=== PATIENT | male | born 1975 | race Caucasian/White ===

== ENCOUNTER 2019-02-25 10:23 | Emergency (ER) | payer MEDICAID ==
[2019-02-25 10:42] VITALS: BP 136/90
--- NOTE | 2019-02-25 11:55 | UC ---
Respiratory Complaint HPI - HPI Summary HPI Summary: 43 year old male with history of asthma presents with 1 week history of chills, fatigue, nasal congestion, sore throat, SOB, wheezing, and a non-productive cough. States symptoms have progressively worsened over the past 3 days. Reports he just moved to the area about 1 month ago from [place], is living with his brother, and has not yet established with a primary care provider. He states he is on multiple medications for HTN, seizure disorder, schizophrenia, and bipolar disorder but is not sure what meds he is taking. He does have an albuterol inhaler for his asthma which he states has used once a day without relief. - History of Current Complaint Chief Complaint: UCRespiratory Stated Complaint: CHEST CONGESTION Time Seen by Provider: 02/25/19 11:51 Hx Obtained From: Patient Pain Intensity: 10 - Allergies/Home Medications Allergies/Adverse Reactions: Allergies Allergy/AdvReac Type Severity Reaction Status Date / Time Penicillins Allergy Vomiting Verified 02/25/19 10:42 PMH/Surg Hx/FS Hx/Imm Hx Cardiovascular History: Hypertension Respiratory History: Asthma Neurological History: Seizures Psychological History: Bipolar Disorder, Schizophrenia - Surgical History Surgical History: None - Family History Known Family History: Positive: Hypertension - Father Negative: Cardiac Disease, Diabetes - Social History Occupation: Unemployed Lives: Alone Alcohol Use: None Substance Use Type: None Smoking Status (MU): Heavy Every Day Tobacco Smoker Have You Smoked in the Last Year: Yes Review of Systems All Other Systems Reviewed And Are Negative: Yes Constitutional: Negative: Fever, Chills Skin: Negative: Rash Eyes: Negative: Drainage, Eye Redness ENT: Positive: Nasal Discharge, Sinus Congestion. Negative: Sore Throat, Ear Ache, Sinus Pain/Tenderness Respiratory: Positive: Shortness Of Breath, Cough, Other - Wheezing Cardiovascular: Negative: Palpitations, Chest Pain Gastrointestinal: Negative: Abdominal Pain, Vomiting, Diarrhea, Nausea Genitourinary: Positive: Negative Musculoskeletal: Positive: Negative Neurological: Positive: Negative Is Patient Immunocompromised?: No Physical Exam - Summary Physical Exam Summary: GENERAL APPEARANCE: Alert and cooperative, obese, unkempt, male who appears to be in no acute distress. EYES: Conjunctiva clear. No drainage. Vision is grossly intact. EARS: External auditory canals and tympanic membranes clear, hearing grossly intact. NOSE: Mild nasal congestion. No nasal discharge. THROAT: Mild pharyngeal erythema with post-nasal drip. No tonsilar inflammation , swelling, exudate, or lesions. Uvula midline. NECK: Neck supple, non-tender without lymphadenopathy. CARDIAC: Normal S1 and S2. No S3, S4 or murmurs. Rhythm is regular. There is no peripheral edema, cyanosis or pallor. Extremities are warm and well perfused. Capillary refill is less than 2 seconds. Peripheral pulses intact. LUNGS: Diffuse wheezing bilaterally with diminished breath sounds. Harsh, bronchospastic cough. ABDOMEN: Positive bowel sounds. Soft, nondistended, nontender. No guarding or rebound. No masses or hepatosplenomegally. MUSKULOSKELETAL: ROM intact to all extremities. No joint erythema or tenderness. Normal muscular development. Normal gait. SKIN: Skin normal color, texture and turgor with no lesions or eruptions. Triage Information Reviewed: Yes Vital Signs: Initial Vital Signs Temp 98 F 02/25/19 10:39 Pulse 92 02/25/19 10:39 Resp 18 02/25/19 10:39 BP 136/90 02/25/19 10:39 Pulse Ox 97 02/25/19 10:39 Vital Signs Reviewed: Yes Diagnostics - Radiology No standard instances Radiology Interpretation Completed By: Radiologist Summary of Radiographic Findings: Order Information: CHEST PA LAT 2 VWS. Accession Number: [id number]. CPT: 64673. INDICATION: 2 days of shortness of breath and productive cough. COMPARISON: None. TECHNIQUE: PA and lateral views of the chest were obtained. FINDINGS: The heart and mediastinum are normal in size and contour. In the lateral aspect of the right upper lung there is a small triangular-shaped density at the expected location of either the lateral inferior margin of the right upper lobe or the minor fissure of the right lung. This finding is not well reproduced on the lateral view radiograph. Elsewhere the lung are grossly clear. There is no evidence of large pleural effusion. Visualized bones are normal for the patient's age. There is no radiographic evidence of free air beneath the diaphragm. IMPRESSION: THERE IS EITHER A SMALL DEGREE OF ATELECTASIS AND/OR CONSOLIDATION INVOLVING THE LOWER LATERAL RIGHT UPPER LOBE, OR FLUID IN THE RIGHT MINOR FISSURE DESCRIBED ABOVE. THE LUNGS ARE OTHERWISE CLEAR. Respiratory Course/Dx - Course Course Of Treatment: 43 year old male with history of asthma presents with 1 week history of chills, fatigue, nasal congestion, sore throat, SOB, wheezing, and a non-productive cough. States symptoms have progressively worsened over the past 3 days. Reports he just moved to the area about 1 month ago from [place], is living with his brother, and has not yet established with a primary care provider. He states he is on multiple medications for HTN, seizure disorder, schizophrenia, and bipolar disorder but is not sure what meds he is taking. He does have an albuterol inhaler for his asthma which he states has used once a day without relief. Afebrile. Mildly hypertensive otherwise VSS. Exam is remarkable for mild nasal congestion, mild pharyngeal erythema with PND, diffuse wheezing with diminished breath sounds, and a harsh bronchospastic cough. He was given a DuoNeb treatment and prednisone 60 mg PO in the clinic with improvement in his symptoms. Post-neb he reported breathing was much easier. He continued to have an occasional scattered wheeze but air exchange much improved. CXR showed atelectasis vs consolidation in the lateral inferior margin of the right upper lobe or the minor fissure of the right lung. Will treat him for CAP with a course of doxycycline 100 mg BID x 10 days, continue the prednisone 50 mg daily for next 4 days, encourage him to use his albuterol 2 puffs every 4-6 hours as needed for SOB and wheezing, and provide him with Tessalon Perles 1 cap every 8 hours as needed for cough. I arranged for him to follow up at the [facility] in 2 days for re-evaluation of his symptoms since he does not currently have a PCP. Anticipatory guidance and warning symptoms were reviewed with the patient. Verbalizes understanding and agrees with POC. - Differential Dx/Diagnosis Differential Diagnosis/HQI/PQRI: Bronchitis, Influenza, Lower Resp Infection, Sinusitis Provider Diagnosis: Community acquired pneumonia Discharge - Sign-Out/Discharge Documenting (check all that apply): Patient Departure All imaging exams completed and their final reports reviewed: Yes - Discharge Plan Condition: Stable Disposition: HOME Prescriptions: Benzonatate CAP* [Tessalon 100 MG CAP*] 100 mg PO TID PRN #30 cap PRN Reason: Cough Doxycycline Hyclate 100 mg PO BID #20 tablet predniSONE TAB* [Deltasone TAB*] 50 mg PO DAILY #4 tab Patient Education Materials: Community Acquired Pneumonia (ED) Referrals: No Primary Care Phys,NOPCP [Primary Care Provider] - [facility] [Outside] - 2 Weeks (You have an appointment on February 27 at 11:00 am.) Additional Instructions: Your chest x-ray performed in the clinic today showed a probable right upper lobe pneumonia. We will start you on an antibiotic to treat the infection. Start doxycycline 100 mg twice a day for 10 days. Take prednisone 50 mg 1 tab daily for next 4 days. We gave you a dose in the clinic today. Be sure you are using your albuterol inhaler 2 puffs every 4-6 hours as needed for shortness of breath or wheezing. Get plenty of rest. Drink plenty of fluids. Run a cool mist humidifer in your room at night. Take over the counter acetaminophen (Tylenol) or ibuprofen (Advil, Motrin) according to directions as needed for pain or fever. Take Tessalon Perles 1 cap every 8 hours as needed for cough. Follow up at the [facility] or [facility] in 2 days. You have an appointment scheduled for February 27 at 11:00 am. Make sure you keep this appointment and be sure to bring all your medications to the appointment. Call if you need to reschedule. Seek immediate medical attention in the emergency room if you have fever greater than 100.5 F despite taking acetaminophen or ibuprofen, have chest pain , difficulty breathing, or have any worsening of symptoms. - Billing Disposition and Condition Condition: STABLE Disposition: Home
[2019-02-25] MEDS ORDERED: Albuterol/Ipratropium NEB.SOL* Albuterol 2.5 MG/Ipratropium 0.5 MG 3 ML INH ONE (12:14)
[2019-02-25] MEDS ORDERED: predniSONE TAB* 20 MG PO ONE (12:14)
== END 2019-02-25 13:41 | disposition home or self-care (01) ==
LOC: UCEAST 10:23
DX: J18.8 Other pneumonia, unspecified organism (principal); I10 Essential (primary) hypertension; J45.909 Unspecified asthma, uncomplicated; R09.81 Nasal congestion; F17.290 Nicotine dependence, other tobacco product, uncomplicated; Z88.0 Allergy status to penicillin
CPT/HCPCS: 71046; 99202; A9270-GY; G0463; J7512

== ENCOUNTER 2019-02-28 20:42 | Inpatient (IN) | payer MEDICAID ==
[2019-02-28] MEDS ORDERED: Albuterol/Ipratropium NEB.SOL* Albuterol 2.5 MG/Ipratropium 0.5 MG 3 ML INH ONE (22:54)
[2019-02-28] MEDS ORDERED: Acetaminophen TAB* 325 MG PO ONE (22:55)
[2019-02-28] MEDS ORDERED: ED Ceftriaxone 2 GM/50 ML 2 GM/2 ML PREMIX.SET IVPB ONE (22:55)
[2019-02-28] MEDS ORDERED: Ketorolac INJ* 30 MG/ML 1 ML VIAL IV PUSH ONE (22:56)
[2019-02-28] MEDS ORDERED: NS 0.9% 1000 ML** 2,000 ML IV ONE (22:56)
[2019-02-28] MEDS ORDERED: Albuterol 2.5 MG/3 ML NEB.SOL* (0.083%) INH SCH (23:00)
--- NOTE | 2019-02-28 23:11 | ED ---
Shortness of Breath - HPI Summary HPI Summary: The patient is a 43 year old male who is presenting to the [facility] with a chief complaint of SOB. He states that he was seen at the [facility] 3 days ago and was dx with pneumonia in the right lobe as well as an ear infection in the right ear. The pneumonia symptoms have worsened and the patient reports of head pains, coughing and chills. He denies fevers at this time. No flu test was done at the [facility]. The patient is a smoker. Medication hx reviewed and stated as Mental health medications, and HTN medications. The patient also receives doxycycline. PMHx also includes arthritis. Symptoms aggravated by nothing. Symptoms alleviated by nothing. The pain is rated to be a 8/10 in severity. According to the triage note, the patient is not taking his medication for his mental health illnesses and wants to receive a MHE. - History of Current Complaint Chief Complaint: EDShortnessOfBreath Time Seen by Provider: 02/28/19 22:42 Hx Obtained From: Patient Onset/Duration: Sudden Onset, Lasting Days - 3 days ago, Still Present Aggrevating Factors: Nothing Alleviating Factors: Nothing Associated Signs & Symptoms: Cough (Nonproductive), Chills - Allergy/Home Medications Allergies/Adverse Reactions: Allergies Allergy/AdvReac Type Severity Reaction Status Date / Time Penicillins Allergy Vomiting Verified 02/25/19 10:42 PMH/Surg Hx/FS Hx/Imm Hx Cardiovascular History: Reports: Hx Hypertension - on meds Respiratory History: Reports: Hx Asthma - Cancer History Cancer Type, Location and Year: seizures arthritis knees and back Infectious Disease History: No Infectious Disease History: Denies: Traveled Outside the [place] in Last 30 Days - Family History Known Family History: Positive: Hypertension - Father Negative: Cardiac Disease, Diabetes - Social History Alcohol Use: None Substance Use Type: Reports: None Smoking Status (MU): Heavy Every Day Tobacco Smoker Have You Smoked in the Last Year: Yes Review of Systems Positive: Chills. Negative: Fever Eyes: Negative ENT: Negative Cardiovascular: Negative Positive: Shortness Of Breath, Cough Gastrointestinal: Negative Genitourinary: Negative Musculoskeletal: Negative Skin: Negative Positive: Headache - Head pains Psychological: Normal All Other Systems Reviewed And Are Negative: Yes Physical Exam - Summary Physical Exam Summary: VITAL SIGNS: Reviewed. GENERAL: Patient is a Morbidly obese (MALE) who is lying comfortable in the stretcher. Patient is not in any acute respiratory distress. HEAD AND FACE: No signs of trauma. No ecchymosis, hematomas or skull depressions. No sinus tenderness. EYES: PERRLA, EOMI x 2, No injected conjunctiva, no nystagmus. EARS: Right TM hyperemia MOUTH: Oropharynx within normal limits. NECK: Supple, trachea is midline, no adenopathy, no JVD, no carotid bruit, no c- spine tenderness, neck with full ROM. CHEST: Symmetric, no tenderness at palpation LUNGS: Decreased breath sounds bilaterally with Mild excretory wheezes CVS:Tachycardia, S1 and S2 present, no murmurs or gallops appreciated. ABDOMEN: Soft, non-tender. No signs of distention. No rebound no guarding, and no masses palpated. Bowel sounds are normal. EXTREMITIES: FROM in all major joints, no edema, no cyanosis or clubbing. NEURO: Alert and oriented x 3. No acute neurological deficits. Speech is normal and follows commands. SKIN: Dry and warm Triage Information Reviewed: Yes Vital Signs On Initial Exam: Initial Vitals Temp Pulse Resp BP Pulse Ox 99.2 F 132 22 148/91 95 02/28/19 20:43 02/28/19 20:43 02/28/19 20:43 02/28/19 20:43 02/28/19 20:43 Vital Signs Reviewed: Yes Diagnostics - Vital Signs Vital Signs Temp Pulse Resp BP Pulse Ox 02/28/19 22:36 106 22 96 02/28/19 21:25 98.5 F 98 28 132/81 95 02/28/19 20:43 99.2 F 132 22 148/91 95 - Laboratory Result Diagrams: 03/02/19 09:12 03/02/19 09:12 Lab Statement: Any lab studies that have been ordered have been reviewed, and results considered in the medical decision making process. - Radiology Chest X-Ray Radiology Interpretation Completed By: ED Physician Summary of Radiographic Findings: Chest X-ray reveals, No acute processes as per ED Physician. - CT Chest CTA CT Interpretation Completed By: Radiologist Summary of CT Findings: Chest CTA as per radiologist report reveals No pulmonary emboli. No additional findings to correlate with patient's. symptomatology. The ED Physician has reviewed this radiology report. - EKG 2222 EKG Rhythm: Sinus Tachycardia - 101 bpm Summary of EKG Findings: EKG at 2222 reveals 101 bpm sinus tachycardia as well as Q waves in the inferior leads. Re-Evaluation - Re-Evaluation 1 Re-Evaluation Time: 07:50 Comment: Informed patient of plan to repeat troponin. Patient has no complaints at this time. Course/Dx - Course Course Of Treatment: The patient is a 43 year old male who is presenting to the [facility] with a chief complaint of SOB. The patient was previous dx with pneumonia , and right ear infection during his [facility] visit and states the symptoms have worsened today. Patient temperature was monitered. Patient received a Chest X- ray, Chest CTA and EKG in the [facility]. We reviewed the radiology findings and discussed the results to the patient. We also discussed the lab work and the blood work results to the patient. The patient will be discharged home with medication and the dx will be Left Otitis media. Patients trop is mildly elevated but the patient doesnt have any chest pain. Patient CT scan did not show any pneumonia so we recommended that the patient discontinue the prednisone and other medication prescribed for pneumonia. The patient will be given ear drops as well as Omnicef. The patient also wishes to receive a mental health evaluation and is medically cleared to receive one at 0344. The patient is currently pending mental health evaluation and disposition. The dx will be depression and right otitis media. Upon receiving a mental health evaluation, the patient is pending a bilingual patient support caseworker/social work consult because the patient is currently homeless. - Diagnoses Provider Diagnoses: SOB (shortness of breath), Right otitis media, Homelessness Discharge - Sign-Out/Discharge Documenting (check all that apply): Sign-Out Patient Signing out patient TO: Codie Diaz Patient Received Moderate/Deep Sedation with Procedure: No - Discharge Plan Condition: Stable Disposition: ADMITTED TO [facility] - Billing Disposition and Condition Condition: STABLE Disposition: Admitted to [facility] - Attestation Statements Document Initiated by Ekta: Yes Documenting Scribe: Jcarlos Da Silva Provider For Whom Ekta is Documenting (Include Credential): Dr. Sonya Brooksibpamela Attestation: Jcarlos Scott scribed for Dr. Gianna Barajas on 03/02/19 at 2020. Scribe Documentation Reviewed: Yes Provider Attestation: The documentation as recorded by the scribe, Jcarlos Da Silva accurately reflects the service I personally performed and the decisions made by me, Dr. Gianna Barajas Status of Ekta Document: Viewed
[2019-02-28] MEDS ORDERED: cefTRIAXone(*) 2 GM in NS 0.9% 100 ML* 100 ML IVPB ONE (23:30)
[2019-02-28 23:48] LABS: ABS Basophils 0 10^3/ul (0-0.2); ABS Eosinophils 0.5 10^3/ul (0-0.6); ABS Lymphocytes 2.9 10^3/ul (1.0-4.8); ABS Neutrophils 9.7 10^3/ul (1.5-7.7); ABS Nucleated RBC 0 10^3/ul; Eosinophil % 3.2 %; Hematocrit 45 % (36-46); Hemoglobin 15.5 g/dL (14.0-18.0); Lymphocyte % 20.7 %; Mean Corpuscular HGB Conc 34 g/dL (31-36); Mean Corpuscular Hemoglobin 30 pg (27-31); Mean Corpuscular Volume 88 fL (80-94); Mean Platelet Volume 7.6 fL (7.4-10.4); Nucleated Red Blood Cells % 0.1; Platelet Count 319 10^3/uL (150-450); Red Blood Count 5.15 10^6 /uL (4.18-5.48); Red Cell Distribution Width 13 % (10.5-15); White Blood Count 14.1 10^3/uL (3.5-10.8)
[2019-02-28 23:57] LABS: Activated Partial Thrombo Time 31.3 seconds (26.0-36.3); INR 1.04 (0.77-1.02)
[2019-03-01 00:06] LABS: ALT 27 U/L (7-52); AST 45 U/L (13-39); Albumin 3.8 g/dL (3.2-5.2); Albumin/Globulin Ratio 1.2 (1-3); Alkaline Phosphatase 82 U/L (34-104); Anion Gap 7 mmol/L (2-11); Blood Urea Nitrogen 10 mg/dL (6-24); C Reactive Protein 30.05 mg/L (<8.01); CO2 Carbon Dioxide 26 mmol/L (22-32); Calcium 8.8 mg/dL (8.6-10.3); Chloride 105 mmol/L (101-111); EGFR African American 110.6 (>60); EGFR Non-African American 91.4 (>60); Globulin 3.1 g/dL (2-4); Glucose 148 mg/dL (70-100); Potassium 3.4 mmol/L (3.5-5.0); Sodium 138 mmol/L (135-145); Total Protein 6.9 g/dL (6.4-8.9)
[2019-03-01] MEDS ORDERED: Iohexol 350* (CONTRAST) 500 ML MDV IV ONE (00:12)
[2019-03-01 00:20] LABS: Troponin I 0.05 ng/mL (<0.04)
[2019-03-01] MEDS ORDERED: Potassium Chlor TAB* 20 MEQ TAB.ER PO ONE (01:16)
[2019-03-01 03:35] LABS: Influenza A Molecular NEGATIVE (Negative); Influenza B Molecular NEGATIVE (Negative)
[2019-03-01 04:01] LABS: Acetaminophen < 15 mcg/mL; Salicylate < 2.50 mg/dL (<30)
[2019-03-01 04:03] LABS: Urine Appearance Clear; Urine Bilirubin Negative (Negative); Urine Blood Negative (Negative); Urine Color Yellow; Urine Glucose Negative (Negative); Urine Ketones Negative (Negative); Urine Nitrite Negative (Negative); Urine Protein Negative (Negative); Urine Specific Gravity > 1.060 (1.010-1.030); Urine Urobilinogen Negative (Negative)
--- NOTE | 2019-03-01 07:09 | ED ---
Progress - Progress Note Progress Note: This patient is signed out from Dr. Barajas at 0700 awaiting social work consult and disposition. - Results/Orders Results/Orders: Second EKG taken at 0809 revealing ectopic atrial rhythm, left axis deviation, and ischemic changes in the inferior and anterior leads. EKG is unchanged from previous except for ectopic atrial rhythm. - Consult/PCP Time Called: 03:45 Re-Evaluation - Re-Evaluation 1 Re-Evaluation Time: 07:50 Comment: Informed patient of plan to repeat troponin. Patient has no complaints at this time. Course/Dx - Course Course Of Treatment: This patient is 43 y/o homeless man that was signed out from Dr. Barajas. This patient presented with SOB. Patient had a dx of PNA and right otitis media three weeks ago, with worsening symptoms since. Patient's nurse states patient was very diaphoretic and SOB upon arrival to the ED. Due to patient's elevated troponin of 0.05 with no previous troponin results to compare to, troponin and EKG will be repeated. EKG is relatively unchanged except for a new ectopic rhythm. Second troponin is 0.03. Due to patient's MR and bipolar disorder and his inability to remain complaint with his medications this case was discussed with the social insurance specialist, Joceline, who discussed patient with caser in, [place]. Joceline states the patient should be admitted as an [facility] admission.Case discussed with hospitalist. I discussed results and plan with patient. The patient agrees with this plan. - Diagnoses Provider Diagnoses: SOB (shortness of breath), Right otitis media, Homelessness Discharge - Sign-Out/Discharge Documenting (check all that apply): Receiving Sign-Out Receiving patient FROM: Gianna Barajas - Discharge Plan Condition: Stable Disposition: ADMITTED TO [facility] Referrals: No Primary Care Phys,NOPCP [Primary Care Provider] - - Billing Disposition and Condition Condition: STABLE Disposition: Admitted to [facility] - Attestation Statements Document Initiated by Toddibe: Yes Documenting Scribe: Jane Webb Provider For Whom Ekta is Documenting (Include Credential): Codie Diaz MD Scribe Attestation: Jane Scott, scribed for Codie Diaz MD on 03/01/19 at 0934. Scribe Documentation Reviewed: Yes Provider Attestation: The documentation as recorded by the Jane montano Roetzer accurately reflects the service I personally performed and the decisions made by me, Codie Diaz MD Status of Scribe Document: Viewed
[2019-03-01] MEDS ORDERED: Albuterol/Ipratropium NEB.SOL* Albuterol 2.5 MG/Ipratropium 0.5 MG 3 ML INH PRN (10:16)
[2019-03-01] MEDS ORDERED: Nicotine Inhaler* 10 MG AMP INH ONE (10:19)
[2019-03-01] MEDS ORDERED: hydrOXYzine HCL TAB* 50 MG PO PRN (10:20)
[2019-03-01] MEDS ORDERED: Mouth Piece, Nicotine* 1 EACH CARTRIDGE ONE ×2 (10:47→13:29)
--- NOTE | 2019-03-01 12:51 | HP ---
ADMITTING HISTORY AND PHYSICAL: DATE OF ADMISSION: 03/01/19 CHIEF COMPLAINT: Shortness of breath and cough. HISTORY OF PRESENT ILLNESS: The patient is a 43-year-old gentleman with history of schizoaffective disorder as well as manic and bipolar and seizure disorder who mentioned that he is new to [place] since 01/18/19, previously a resident of [place] and lives on social security in a cousin's house prior to this who mentioned that he had spoken to his brother on the phone thinking that it would be okay to live with him, however, when he got to [place], he found out that he was unable to live with his brother and his family and hence he has become homeless since and has been sleeping from one friend to the others' place. He mentioned that he was recently diagnosed with pneumonia and right otitis media and was placed on antibiotics and had since improved, this was 3 weeks ago. However, he supposedly became diaphoretic and short of breath and was sent to the ED and was found to initially have a mildly elevated troponin of 0.05, however, a repeat troponin was 0.03 and has since been normalized. On EKG, he might have some ectopic atrial rhythm, but otherwise sinus with no ST-segment changes that is consistent with each anatomical lead. In the ED, he had been given Rocephin, nebulization, ketorolac, potassium supplements and nicotine inhaler. PAST MEDICAL HISTORY: 1. Seizure disorder. 2. Hypertension. 3. Asthma. 4. Bipolar disorder. 5. Manic depression. 6. Osteoarthritis of the lower back and the left knee. 7. Schizoaffective disorder. 8. Purported split personality disorder. PAST SURGICAL HISTORY: None. MEDICATIONS: His home medications are: 1. Lamotrigine. 2. Escitalopram. 3. Phenytoin. 4. Hydroxyzine. 5. Lisinopril. 6. Prednisone. 7. Doxycycline. 8. Benzonatate. ALLERGIES: PENICILLIN where he mentions he would throw up blood when he would get them. FAMILY HISTORY: Mental illness, unknown: Sister. Father: Hypertension. SOCIAL HISTORY: The patient originally from [place] and went to [place], [place], to be near his brother. Unfortunately, he cannot live with his brother and his family and has since been homeless. He denies any history of alcohol nor IV drug use and he smokes about 1 pack per day since the age of 19. REVIEW OF SYSTEMS: On review of systems, the patient complained of shortness of breath a few hours prior to his presentation, but no longer present, mentions that he coughs a lot more than usual and they are usually dry. Denies any recent headaches, dizziness, fevers, chills, nausea, or vomiting. He did complain initially of chest pain, but no longer present. Denies any abdominal pain, diarrhea, constipation, pain and/or increased frequency in urination, myalgias, arthralgias, throat pain, or new skin lesions. The rest of the 14- point review of systems are otherwise unremarkable. PHYSICAL EXAMINATION GENERAL APPEARANCE: The patient is awake, not in acute distress. VITAL SIGNS: Reveals the most recent vitals sings of records with blood pressure of 132/78, 67 beats per minute heart rate, 17 per minute respiratory rate, saturating at 96% on room air. HEENT: Normocephalic, atraumatic. PERRLA. Extraocular muscles intact. Negative for icterus. Moist oral mucosa. Negative throat erythema. NECK: Soft, supple with no cervical lymphadenopathy. No JVD. CHEST: Clear to auscultation bilaterally. Good air entry. No wheezes, rales, or rhonchi. HEART: S1, S2 within normal limits. Regular rate and rhythm. No murmurs, rubs , or gallops. ABDOMEN: Soft, nondistended, nontender. Normoactive bowel sounds x4 quadrants. EXTREMITIES: No cyanosis, clubbing, or edema. PSYCHIATRIC: No active psychosis, depression, suicidal or homicidal ideation. SKIN: Warm to touch. DIAGNOSTIC STUDIES/LAB DATA: Most recent and pertinent laboratories drawn on 02/28/19 show CBC with a WBC of 14.1, H and H of 15.5 and 45, platelets of 319. INR of 1.04, D-dimer of less than 200, aPTT of 31.3. Sodium and potassium of 138 and 3.4, BUN and creatinine of 10 and 0.91. LFTs mildly elevated with an AST of 45, ALT of 87, alkaline phosphatase of 82, troponins of 0.05 and 0.03. BNP of 26. Urinalysis shows specific gravity greater than 1.060. Chest x-ray shows no acute disease. CT angio of the chest shows no pulmonary emboli, no findings to correlate with the patient's symptomatology. ASSESSMENT AND PLAN: The patient is a 43-year-old gentleman with extensive psychiatric history along with seizure disorder, being admitted for chest pain and shortness of breath, possibly due to bronchitis versus anxiety. 1. Chest pain and shortness of breath. He did have some mildly elevated troponins on presentation and we will continue to trend the patient's troponin. His RENETTA score is 1 at best and will continue watchful waiting for now and to consider for a possible stress test in a.m. If this recurs, however, given low pretest probability, a likelihood of false-positive is also a concern. Therefore, we will obtain 2-D echo to start with and if there are any concerns, we will defer and will continue to observe if the patient will need a stress test on Sunday. 2. Cough, possibly due to reactive airways disease/bronchitis. It is concerning that he was diaphoretic or at least observed to have been diaphoretic by a nurse on his initial presentation, which could suggest a psychiatric cause such as anxiety given he is on hydroxyzine q.6 p.r.n. versus a real pulmonary cause. We will obtain ABG at this time. We will continue the patient on prednisone given his recent bout and diagnosis of pneumonia. 3. Seizure disorder. We will continue antiseizure meds with phenytoin and lamotrigine. 4. Anxiety. We will continue p.r.n. hydroxyzine. 5. Hypertension. Continue lisinopril, otherwise well controlled. 6. Tobacco abuse, advised lifestyle modifications. We will place the patient on nicotine patch and p.r.n. nicotine inhalers. 7. DVT prophylaxis. The patient is at low risk. I will place the patient on DELANEY stockings and encourage ambulation with assist. 8. Disposition. The patient will be admitted for chest pain and subsequent jail care. [id number]/[facility] #: [id number] ABBY
[2019-03-01] MEDS: Phenytoin CAP(*) 100 MG CAP.ER PO SCH ×2 (13:34→21:02)
[2019-03-01] MEDS: Benzonatate CAP* 100 MG PO PRN (13:34)
[2019-03-01] MEDS: NS 0.9% 1000 ML** 400 ML IV SCH ×2 (15:07→19:46)
[2019-03-01] MEDS: Ofloxacin 0.3% (Ear Drop)* 5 ml BTL RIGHT EAR SCH ×2 (15:07→21:03)
[2019-03-01] MEDS: Nicotine Inhaler* 10 MG AMP INH PRN (18:01)
[2019-03-01] MEDS: lamoTRIgine TAB(*) 100 MG PO SCH (21:01)
[2019-03-02] MEDS: Nicotine Patch Removal NOTE FOLLOW UP SCH (04:11)
[2019-03-02] MEDS ORDERED: predniSONE TAB* 50 MG PO SCH (09:00)
[2019-03-02] MEDS: Phenytoin CAP(*) 100 MG CAP.ER PO SCH ×3 (09:18→20:59)
[2019-03-02] MEDS: lamoTRIgine TAB(*) 100 MG PO SCH ×2 (09:18→21:00)
[2019-03-02] MEDS: Citalopram TAB* 40 MG PO SCH (09:18)
[2019-03-02] MEDS: Lisinopril TAB* 10 MG PO SCH (09:18)
[2019-03-02] MEDS: Ofloxacin 0.3% (Ear Drop)* 5 ml BTL RIGHT EAR SCH ×2 (09:19→21:08)
[2019-03-02] MEDS: Nicotine PATCH 21 MG/24 HR* PATCH TRANSDERM SCH (09:19)
[2019-03-02 09:34] LABS: Hematocrit 45 % (36-46); Hemoglobin 14.9 g/dL (14.0-18.0); Mean Corpuscular HGB Conc 34 g/dL (31-36); Mean Corpuscular Hemoglobin 30 pg (27-31); Mean Corpuscular Volume 90 fL (80-94); Platelet Count 283 10^3/uL (150-450); Red Blood Count 4.99 10^6 /uL (4.18-5.48); Red Cell Distribution Width 13 % (10.5-15); White Blood Count 10.9 10^3/uL (3.5-10.8)
[2019-03-02 09:44] LABS: Albumin 3.8 g/dL (3.2-5.2); Albumin/Globulin Ratio 1.2 (1-3); BUN/Creatinine Ratio 10.2 (8-20); EGFR African American 114.9 (>60); Globulin 3.1 g/dL (2-4); Magnesium 1.8 mg/dL (1.9-2.7); Phosphorus 2.9 mg/dL (2.5-5.0); Total Bilirubin 0.4 mg/dL (0.2-1.0); Total Protein 6.9 g/dL (6.4-8.9)
[2019-03-02] MEDS ORDERED: Magnesium Sulfate 2 GM IV* 2 GM/50 ML BAG IVPB ONE (09:50)
[2019-03-02] MEDS ORDERED: predniSONE TAB* 20 MG PO STA (10:41)
[2019-03-02] MEDS ORDERED: Benzonatate CAP* 100 MG PO PRN ×2 (10:42→11:01)
[2019-03-02] MEDS ORDERED: Albuterol/Ipratropium NEB.SOL* Albuterol 2.5 MG/Ipratropium 0.5 MG 3 ML INH SCH (11:00)
[2019-03-02] MEDS ORDERED: predniSONE TAB* 10 MG PO ONE (11:15)
[2019-03-02] MEDS: Benzonatate CAP* 100 MG PO PRN (11:27)
--- NOTE | 2019-03-02 12:24 | PN ---
Subjective Date of Service: 03/02/19 Interval History: Pt seen and examined. Meds and labs reviewed. CC: N/A ROS: Denied PEREZ/dizziness, F/C, N/V, CP, SOB, increased cough, sputum production , abd pain, diarrhea, constipation, dysuria, myalgias, arthralgias, throat pain , and new skin lesions. The rest of the 14 point ROS are unremarkable. PHYSICAL EXAM: GEN APPEARANCE: Asleep, arousable, not in acute distress HEENT: NC/AT, PERRLA, moist oral mucosa, (-) throat erythema NECK: Soft, supple, (-) cervical LAD, (-)JVD HEART: S1S2 WNL, RRR, No MRG CHEST: (+)mild Wheezing, BL, GAE, No R/R ABD: Soft, ND/NT, NABS 4x Q EXT: No C/C/E SKIN: Warm to touch PSYCH: No active psychosis, hallucinations, depression, SI/HI Objective Active Medications: Albuterol (Ventolin 2.5 Mg/3 Ml Neb.Lyn*) 2.5 mg INH .Q20M [facility] Albuterol/Ipratropium (Duoneb (Albuterol 2.5 Mg/Ipratropium 0.5 Mg)) 1 neb INH [id number] AWAKE [facility] Last Admin: 03/02/19 12:19 Dose: 1 neb Benzonatate (Tessalon Cap*) 100 mg PO Q6H PRN PRN Reason: COUGH Citalopram Hydrobromide (Celexa Tab*) 40 mg PO DAILY [facility] Last Admin: 03/02/19 09:18 Dose: 40 mg Guaifenesin/Dextromethorphan (Robitussin Dm*) 10 ml PO TID [facility] Stop: 03/04/19 13:59 Hydroxyzine HCl (Atarax Tab*) 50 mg PO Q6H PRN PRN Reason: ANXIETY Last Admin: 03/02/19 06:38 Dose: 50 mg Lamotrigine (Lamictal Tab(*)) 150 mg PO BID [facility] Last Admin: 03/02/19 09:18 Dose: 150 mg Lisinopril (Prinivil Tab*) 20 mg PO DAILY [facility] Last Admin: 03/02/19 09:18 Dose: 20 mg Nicotine (Nicotine Inhaler*) 10 mg INH Q2H PRN PRN Reason: CRAVING Last Admin: 03/01/19 18:01 Dose: 10 mg Nicotine (Nicotine Patch 21 Mg/24 Hr*) 1 patch TRANSDERM DAILY@0800 [facility] Last Admin: 03/02/19 09:19 Dose: Not Given Ofloxacin (Floxin 0.3% Otic.Lyn*) 5 drop RIGHT EAR BID [facility] Last Admin: 03/02/19 09:19 Dose: 5 drp Pharmacy Profile Note (Nicotine Patch Removal Note*) 1 note FOLLOW UP 0600 [facility] Last Admin: 03/02/19 04:11 Dose: Not Given Phenytoin Sodium (Dilantin Cap(*)) 300 mg PO TID [facility] Last Admin: 03/02/19 09:18 Dose: 300 mg Prednisone (Deltasone Tab*) 60 mg PO BID [facility] Vital Signs - 8 hr 03/02/19 03/02/19 03/02/19 07:20 08:00 10:58 Temperature 98.4 F 98.4 F Pulse Rate 66 65 Respiratory 18 20 20 Rate Blood Pressure 135/84 148/57 (mmHg) O2 Sat by Pulse 96 95 95 Oximetry 03/02/19 11:33 Temperature 98.4 F Pulse Rate 65 Respiratory 20 Rate Blood Pressure 148/57 (mmHg) O2 Sat by Pulse 95 Oximetry Oxygen Devices in Use Now: None Result Diagrams: 03/02/19 09:12 03/02/19 09:12 Microbiology and Other Data: Microbiology 02/28/19 23:40 Aerobic Blood Culture - Preliminary Blood Venous No Growth Day 1 Anaerobic Blood Culture - Preliminary No Growth Day 1 02/28/19 23:40 Aerobic Blood Culture - Preliminary Blood Venous No Growth Day 1 Anaerobic Blood Culture - Preliminary No Growth Day 1 Assess/Plan/Problems-Billing Assessment: - Patient Problems (1) Chest pain Current Visit: Yes Status: Acute Code(s): R07.9 - CHEST PAIN, UNSPECIFIED SNOMED Code(s): 74215636 Comment: -Resolved -Risk scores: RENETTA = 1; Heart =1; low risk; will not order stress test unless frequent recurrence or 2D echo suggestive of wall motion abn -Awaiting 2D echo -Likely musculoskeletal in nature -ACS R/O (2) Cough Current Visit: Yes Status: Acute Code(s): R05 - COUGH SNOMED Code(s): 26726691 Comment: -Likely due to mild asthma exacerbation -Changed nebulization meds as ordered -Increase PO Prednisone as ordered -Placed pt on Robitussin-DM and Tessalon perles, PRN -Continue watchful waiting (3) Seizure disorder Current Visit: Yes Status: Acute Code(s): G40.909 - EPILEPSY, UNSP, NOT INTRACTABLE, WITHOUT STATUS EPILEPTICUS SNOMED Code(s): 684650683 Comment: -Continue Phenytoin and Lamotrigine (4) Anxiety Current Visit: Yes Status: Acute Code(s): F41.9 - ANXIETY DISORDER, UNSPECIFIED SNOMED Code(s): 62915724 Comment: -Continue PRN Hydroxyzine (5) HTN (hypertension) Current Visit: Yes Status: Acute Code(s): I10 - ESSENTIAL (PRIMARY) HYPERTENSION SNOMED Code(s): 80020291 (6) Tobacco abuse Current Visit: Yes Status: Acute Code(s): Z72.0 - TOBACCO USE SNOMED Code( s): 218160392 (7) DVT prophylaxis Current Visit: Yes Status: Acute Code(s): FHS9851 - SNOMED Code(s): 758560929 Comment: -Will add Lovenox to pts regimen Status and Disposition: -As above
[2019-03-02] MEDS: Albuterol/Ipratropium NEB.SOL* Albuterol 2.5 MG/Ipratropium 0.5 MG 3 ML INH SCH ×3 (13:23→19:56)
[2019-03-02] MEDS: GuaiFENesin DM* 5 ML UDC PO SCH ×2 (15:55→21:14)
[2019-03-02] MEDS: Nicotine Inhaler* 10 MG AMP INH PRN (17:23)
[2019-03-02] MEDS ORDERED: Dextrose 50% Syringe 50 ML* 25 GM/50 ML SYRINGE IV PUSH PRN (20:00)
[2019-03-02] MEDS ORDERED: Insulin LISPRO* 1 UNITS UNIT SUBCUT ONE (20:00)
[2019-03-02] MEDS ORDERED: Acetaminophen TAB* 325 MG PO PRN (20:21)
[2019-03-02] MEDS: predniSONE TAB* 20 MG PO SCH (20:59)
[2019-03-02] MEDS: LORazepam INJ* 2 MG/ML 1 ML VIAL IV PUSH PRN (21:07)
[2019-03-02 21:30] LABS: ABS Basophils 0 10^3/ul (0-0.2); ABS Eosinophils 0 10^3/ul (0-0.6); ABS Lymphocytes 1.1 10^3/ul (1.0-4.8); ABS Monocytes 0.5 10^3/ul (0-0.8); ABS Nucleated RBC 0 10^3/ul; Eosinophil % 0.1 %; Hematocrit 46 % (36-46); Hemoglobin 15.6 g/dL (14.0-18.0); Lymphocyte % 6.8 %; Mean Corpuscular HGB Conc 34 g/dL (31-36); Mean Corpuscular Hemoglobin 30 pg (27-31); Mean Corpuscular Volume 89 fL (80-94); Mean Platelet Volume 7.9 fL (7.4-10.4); Nucleated Red Blood Cells % 0; Platelet Count 316 10^3/uL (150-450); Red Blood Count 5.18 10^6 /uL (4.18-5.48); Red Cell Distribution Width 13 % (10.5-15); White Blood Count 15.6 10^3/uL (3.5-10.8)
[2019-03-02 21:47] LABS: Albumin 4.1 g/dL (3.2-5.2); Albumin/Globulin Ratio 1.2 (1-3); BUN/Creatinine Ratio 12.6 (8-20); Calcium 9.6 mg/dL (8.6-10.3); EGFR African American 105.2 (>60); EGFR Non-African American 86.9 (>60); Globulin 3.3 g/dL (2-4); Potassium 4.6 mmol/L (3.5-5.0); Total Bilirubin 0.3 mg/dL (0.2-1.0); Total Protein 7.4 g/dL (6.4-8.9)
[2019-03-02 21:48] LABS: Phenytoin 4.8 mcg/mL (10-20)
[2019-03-02 22:06] LABS: Prolactin 1.7 ng/mL (1.0-20.0)
--- NOTE | 2019-03-02 23:29 | PN ---
Hospitalist Progress Note Date of Service: 03/02/19 CAT CODE RESPONSE CAT was called to bedside of patient 4 PM for diaphoresis and dizziness while patient ambulated to the bathroom On arrival VSS BP 140s systolic, HR 70s, afebrile, and satting 95% on RA, BG > 300. Pt was in the bathroom sitting on the toilet, diaphoretic and drowsy, he was able to follow commands and was able to be transferred to bed with gait belt and assist of 2. Shortly after CAT pt had a 90 second long seizure described as pt complaining on prodrome with nurse at bedside then eyes rolling back in head then a generalized fine tremor to upper and lower ext with no focal motor or tonic clonic, no bladder/bowel, pt returned to baseline function with no post ictal state, hyperglycemia was adressed, and then pt again had seizure pt was ordered for ativan but broke out of seizure just as it was being given. In bed, pt participated in exam PE: Gen: AOx3, diaphretic but well appearing well nourished Neuro: follows all commands, PEERLA, CN2-12 intact, motor and sensory intact bilaterally CV: RRR no MRG Lungs: Distant blt but no crackles or wheeze, equal air movement GI: Soft NT ND NABS Ext: No edema, 2+ pulses no rashes Labs-Hypergly, leukocytosis, prolactin low Assessment: Overall, pt with known seizure d/o found to be diaphoretic, hyperglycemic likely a vasovagal that progressed into presumed seizure activity triggered by hyperglycemia. He has recovered without intervention aside from ativan. #Hypergly-5U lispro, then sliding scale >30 BMI, add A1C #Seizure d/o: Did order levels, PRN ativan 1mg for seizure > 30 seconds Will reassess patient 4 hours post CAT
[2019-03-02] MEDS: Insulin LISPRO* 1 UNITS UNIT SUBCUT SCH (23:57)
[2019-03-03] MEDS: Albuterol/Ipratropium NEB.SOL* Albuterol 2.5 MG/Ipratropium 0.5 MG 3 ML INH SCH ×2 (01:37→07:07)
[2019-03-03] MEDS: Nicotine Patch Removal NOTE FOLLOW UP SCH (06:02)
[2019-03-03] MEDS: Nicotine Inhaler* 10 MG AMP INH PRN ×4 (06:22→20:16)
[2019-03-03] MEDS: GuaiFENesin DM* 5 ML UDC PO SCH ×3 (08:29→20:17)
[2019-03-03] MEDS: Insulin LISPRO* 1 UNITS UNIT SUBCUT SCH ×4 (08:32→20:52)
[2019-03-03] MEDS: Phenytoin CAP(*) 100 MG CAP.ER PO SCH ×3 (08:35→20:20)
[2019-03-03] MEDS: Lisinopril TAB* 10 MG PO SCH (08:36)
[2019-03-03] MEDS: predniSONE TAB* 20 MG PO SCH ×2 (08:37→20:21)
[2019-03-03] MEDS: lamoTRIgine TAB(*) 100 MG PO SCH ×2 (08:37→20:20)
[2019-03-03] MEDS: Citalopram TAB* 40 MG PO SCH (08:39)
[2019-03-03] MEDS: Ofloxacin 0.3% (Ear Drop)* 5 ml BTL RIGHT EAR SCH ×2 (08:40→20:20)
[2019-03-03] MEDS: Nicotine PATCH 21 MG/24 HR* PATCH TRANSDERM SCH (09:22)
[2019-03-03] MEDS ORDERED: Phenytoin IV(*) 50 MG/ML 5 ML VIAL (250 MG) IVPB ONE (10:57)
[2019-03-03] MEDS ORDERED: Albuterol/Ipratropium NEB.SOL* Albuterol 2.5 MG/Ipratropium 0.5 MG 3 ML INH PRN (12:01)
[2019-03-03] MEDS ORDERED: Dextrose 50% Syringe 50 ML* 25 GM/50 ML SYRINGE IV PUSH PRN (13:43)
[2019-03-03] MEDS ORDERED: Insulin LISPRO* 1 UNITS UNIT SUBCUT STA (13:43)
[2019-03-03] MEDS: NS 0.9% IVPB ONE ×2 (14:06→14:15)
[2019-03-03] MEDS: FOSPHENYTOIN IVPB ONE ×2 (14:06→14:15)
[2019-03-03] MEDS ORDERED: Perflutren Lipid Microsphere* 3 ML VIAL ONE (15:05)
--- NOTE | 2019-03-03 17:11 | ECHO ---
Patient: NATASHA MELÉNDEZ [facility] Rec#: [id number] : 1975 Date: 03/03/2019 Age: 43y Height: 188 cm / 74.0 in Weight: 149 kg / 328.4 lbs Sex: M BSA: 2.68 Room#: [facility] Admit Date#: 02/26/2019 Type: Inpatient Referring: COURTNEY YOON R Reading: Angel Trevizo DO Order Fulfillment Specialist: Sanjana Christie RDCS Transthoracic Echocardiogram Indication: CP BP: 135/68 HR: 75 Rhythm: NSR Findings History: Morbid obesity,HTN,smoker,seizures. Technical Comments: The study is technically difficult. Definity used to enhance images. The study is technically limited due to patient body habitus. Left Ventricle: Mild concentric left ventricular hypertrophy is observed. Global left ventricular wall motion and contractility are within normal limits. There is normal left ventricular systolic function. The estimated ejection fraction is 60-65%. Abnormal left ventricular diastolic function is observed. Left Atrium: The left atrium is normal in size. Right Ventricle: The right ventricular chamber size and systolic function are within normal limits.in parasternal imaging, not seen well in apical views Right Atrium: The right atrium is not well visualized. Aortic Valve: The aortic valve is trileaflet. There is no evidence of aortic valve thickening. There is no evidence of aortic regurgitation. There is no evidence of aortic stenosis. Mitral Valve: The mitral valve leaflets appear normal. There is a trace of mitral regurgitation. There is no evidence of mitral stenosis. Tricuspid Valve: The tricuspid valve structure is not well visualized. Pulmonic Valve: The pulmonic valve appears normal. There is no evidence of pulmonic regurgitation. There is no pulmonic stenosis. Pericardium: There is no significant pericardial effusion. Aorta: There is no dilatation of the ascending aorta. The aortic arch is not well visualized. There is no dilation of the aortic root. Pulmonary Artery: The main pulmonary artery is not well visualized. Venous: The venous system is not well visualized. Contrast: Definity was used to optimize study. A total of 4 ml used. Intravenous contrast was used to enhance endocardial border definition. Conclusions Mild concentric left ventricular hypertrophy is observed. Global left ventricular wall motion and contractility are within normal limits. There is normal left ventricular systolic function. The estimated ejection fraction is 60-65%. The left atrium is normal in size. The right ventricular chamber size and systolic function are within normal limits. The tricuspid valve structure is not well visualized. Otherwise no significant valvular abnormalities noted The study is technically difficult. Definity used to enhance images. No prior studies available for comparison at time of interpretation Measurements Name Value Normal Range RVIDd (AP) 2D 3.2 cm (0.9 - 2.6) IVSd (2D) 1.2 cm (0.6 - 1) LVPWd (2D) 1 cm (0.6 - 1) LVIDd (2D) 4.6 cm (3.6 - 5.4) LVIDs (2D) 3.6 cm - LV FS (2D) 22 % (25 - 45) Aortic Annulus 2.1 cm (1.4 - 2.6) Ao root diameter (2D) 3.5 cm (2.1 - 3.5) Ascending Ao 3 cm (2.1 - 3.4) Name Value Normal Range MV E-wave Vmax 1.1 m/sec - MV deceleration time 218 msec - MV A-wave Vmax 0.9 m/sec - MV E:A ratio 1.1 ratio - LV septal e' Vmax 0.11 m/sec - LV lateral e' Vmax 0.12 m/sec - LV E:e' septal ratio 10 ratio - LV E:e' lateral ratio 9.17 ratio - Name Value Normal Range AV Vmax 0.9 m/sec - AV VTI 29.8 cm - AV peak gradient 7 mmHg - AV mean gradient 4 mmHg - LVOT Vmax 0.4 m/sec - LVOT VTI 13.5 cm - LVOT peak gradient 1 mmHg - Name Value Normal Range PV Vmax 1 m/sec - PV peak gradient 4 mmHg -
--- NOTE | 2019-03-03 17:38 | PN ---
Subjective Date of Service: 03/03/19 Interval History: Pt seen and examined. Meds and labs reviewed. CAT was called last night for diaphoresis and had 90 s witnessed seizure by staff CC: N/A ROS: Denied PEREZ/dizziness, F/C, N/V, CP, SOB, increased cough, sputum production , abd pain, diarrhea, constipation, dysuria, myalgias, arthralgias, throat pain , and new skin lesions. The rest of the 14 point ROS are unremarkable. PHYSICAL EXAM: GEN APPEARANCE: Asleep, arousable, not in acute distress HEENT: NC/AT, PERRLA, moist oral mucosa, (-) throat erythema NECK: Soft, supple, (-) cervical LAD, (-)JVD HEART: S1S2 WNL, RRR, No MRG CHEST: CTA BL, GAE, No R/R ABD: Soft, ND/NT, NABS 4x Q EXT: No C/C/E SKIN: Warm to touch PSYCH: No active psychosis, hallucinations, depression, SI/HI Objective Active Medications: Acetaminophen (Tylenol Tab*) 650 mg PO Q4H PRN PRN Reason: FEVER/HEADACHE Last Admin: 03/02/19 21:12 Dose: 650 mg Albuterol (Ventolin 2.5 Mg/3 Ml Neb.Lyn*) 2.5 mg INH .Q20M [facility] Albuterol/Ipratropium (Duoneb (Albuterol 2.5 Mg/Ipratropium 0.5 Mg)) 1 neb INH [id number] AWAKE PRN PRN Reason: bs clear Stop: 03/09/19 23:59 Benzonatate (Tessalon Cap*) 100 mg PO Q6H PRN PRN Reason: COUGH Last Admin: 03/03/19 08:38 Dose: 100 mg Citalopram Hydrobromide (Celexa Tab*) 40 mg PO DAILY [facility] Last Admin: 03/03/19 08:39 Dose: 40 mg Dextrose (D50w Syringe 50 Ml*) 12.5 gm IV PUSH .FOR FS < 60 - SS PRN PRN Reason: FS < 60 Guaifenesin/Dextromethorphan (Robitussin Dm*) 10 ml PO TID [facility] Stop: 03/04/19 13:59 Last Admin: 03/03/19 14:05 Dose: 10 ml Hydroxyzine HCl (Atarax Tab*) 50 mg PO Q6H PRN PRN Reason: ANXIETY Last Admin: 03/02/19 06:38 Dose: 50 mg Insulin Human Lispro (Humalog*) 0 units SUBCUT ACHS [facility]; Protocol Last Admin: 03/03/19 16:38 Dose: 15 units Lamotrigine (Lamictal Tab(*)) 150 mg PO BID [facility] Last Admin: 03/03/19 08:37 Dose: 150 mg Lisinopril (Prinivil Tab*) 20 mg PO DAILY [facility] Last Admin: 03/03/19 08:36 Dose: 20 mg Lorazepam (Ativan Inj*) 1 mg IV PUSH Q6H PRN PRN Reason: AGITATION Last Admin: 03/02/19 21:07 Dose: 1 mg Nicotine (Nicotine Inhaler*) 10 mg INH Q2H PRN PRN Reason: CRAVING Last Admin: 03/03/19 16:38 Dose: 10 mg Nicotine (Nicotine Patch 21 Mg/24 Hr*) 1 patch TRANSDERM DAILY@0800 [facility] Last Admin: 03/03/19 09:22 Dose: Not Given Ofloxacin (Floxin 0.3% Otic.Lyn*) 5 drop RIGHT EAR BID [facility] Last Admin: 03/03/19 08:40 Dose: 5 drp Pharmacy Profile Note (Nicotine Patch Removal Note*) 1 note FOLLOW UP 0600 [facility] Last Admin: 03/03/19 06:02 Dose: Not Given Phenytoin Sodium (Dilantin Cap(*)) 400 mg PO TID [facility] Last Admin: 03/03/19 14:06 Dose: 400 mg Prednisone (Deltasone Tab*) 60 mg PO BID [facility] Last Admin: 03/03/19 08:37 Dose: 60 mg Oxygen Devices in Use Now: None Result Diagrams: 03/02/19 21:20 03/02/19 21:20 Microbiology and Other Data: Microbiology 02/28/19 23:40 Aerobic Blood Culture - Preliminary Blood Venous No Growth Day 1 Anaerobic Blood Culture - Preliminary No Growth Day 1 02/28/19 23:40 Aerobic Blood Culture - Preliminary Blood Venous No Growth Day 1 Anaerobic Blood Culture - Preliminary No Growth Day 1 Assess/Plan/Problems-Billing Assessment: - Patient Problems (1) Chest pain Current Visit: Yes Status: Acute Code(s): R07.9 - CHEST PAIN, UNSPECIFIED SNOMED Code(s): 13787736 Comment: -Resolved -Risk scores: RENETTA = 1; Heart =1; low risk; will not order stress test unless frequent recurrence or 2D echo suggestive of wall motion abn -2D echo: EF =60-65% w/o wall motion abn -Likely musculoskeletal in nature -ACS R/O (2) Cough Current Visit: Yes Status: Acute Code(s): R05 - COUGH SNOMED Code(s): 12250079 Comment: -Improved -Likely due to mild asthma exacerbation -Continue nebulization meds as ordered -Continue Prednisone as ordered -Continue Robitussin-DM and Tessalon perles, PRN -Continue watchful waiting (3) Seizure disorder Current Visit: Yes Status: Acute Code(s): G40.909 - EPILEPSY, UNSP, NOT INTRACTABLE, WITHOUT STATUS EPILEPTICUS SNOMED Code(s): 585958394 Comment: -Phenytoin was found low and ordered bolus but pt refused, but ok to take increased PO meds -D/W Dr. Babb and will await official input -Continue Lamotrigine (4) Anxiety Current Visit: Yes Status: Acute Code(s): F41.9 - ANXIETY DISORDER, UNSPECIFIED SNOMED Code(s): 45877316 Comment: -Continue PRN Hydroxyzine (5) HTN (hypertension) Current Visit: Yes Status: Acute Code(s): I10 - ESSENTIAL (PRIMARY) HYPERTENSION SNOMED Code(s): 39608998 (6) Tobacco abuse Current Visit: Yes Status: Acute Code(s): Z72.0 - TOBACCO USE SNOMED Code( s): 881284305 (7) DVT prophylaxis Current Visit: Yes Status: Acute Code(s): HJM0270 - Comment: -Refuses Lovenox; continue DELANEY stockings Status and Disposition: -Will await input from Dr. Babb -Possible D/C in AM if stable O/N
[2019-03-03] MEDS ORDERED: Insulin LISPRO* 1 UNITS UNIT SUBCUT ONE ×3 (20:50→22:40)
[2019-03-03] MEDS: LORazepam INJ* 2 MG/ML 1 ML VIAL IV PUSH PRN (22:21)
[2019-03-03] MEDS ORDERED: NS 0.9% 500 ML* 500 ML IV ONE (22:40)
--- NOTE | 2019-03-03 23:19 | EEG ---
ELECTROENCEPHALOGRAPHY REPORT: DATE OF STUDY: 03/03/19 - ROOM #412 REFERRING PROVIDER: Dr. Cowan. LOCATION: He is an inpatient. CLINICAL PROBLEM: History of epilepsy, the patient apparently ran out of medications. MEDICATIONS: Currently medications include: 1. Phenytoin. 2. Insulin. 3. Lorazepam. 4. Hydroxyzine. 5. Lisinopril. 6. Escitalopram. 7. Nicotine patch. 8. Prednisone. 9. Lamotrigine. REPORT: This 19-channel EEG is remarkable for background rhythms consistent of diffuse beta activity. The patient is clinically awake. There is very low abundance alpha rhythm seen in the occipital derivations, perhaps 8 to 9 cycles per second. Occasionally there is some central slowing. Activation procedures are not attempted. There are no clinical events. The patient does not appear to sleep. There are no focal, lateralized, or epileptiform abnormalities. CLINICAL IMPRESSION: Abnormal EEG due to abundant beta rhythms consistent with possible drug effect. There are no focal or epileptiform abnormalities. [id number]/[facility] #: [id number] [facility]
[2019-03-04] MEDS: Nicotine Inhaler* 10 MG AMP INH PRN ×8 (01:52→22:25)
[2019-03-04] MEDS: Insulin LISPRO* 1 UNITS UNIT SUBCUT SCH ×8 (02:39→20:30)
[2019-03-04] MEDS: Nicotine Patch Removal NOTE FOLLOW UP SCH (05:26)
[2019-03-04 06:25] LABS: Hematocrit 45 % (36-46); Hemoglobin 14.8 g/dL (14.0-18.0); Mean Corpuscular HGB Conc 33 g/dL (31-36); Mean Corpuscular Hemoglobin 30 pg (27-31); Mean Corpuscular Volume 90 fL (80-94); Mean Platelet Volume 8.5 fL (7.4-10.4); Platelet Count 309 10^3/uL (150-450); Red Blood Count 4.97 10^6 /uL (4.18-5.48); Red Cell Distribution Width 13 % (10.5-15); White Blood Count 23.8 10^3/uL (3.5-10.8)
[2019-03-04 06:26] LABS: ABS Basophils 0 10^3/ul (0-0.2); ABS Eosinophils 0 10^3/ul (0-0.6); ABS Lymphocytes 1.5 10^3/ul (1.0-4.8); ABS Monocytes 0.6 10^3/ul (0-0.8); ABS Neutrophils 21.6 10^3/ul (1.5-7.7); ABS Nucleated RBC 0 10^3/ul; Eosinophil % 0 %; Lymphocyte % 6.4 %; Nucleated Red Blood Cells % 0
[2019-03-04 06:44] LABS: Albumin 3.9 g/dL (3.2-5.2); Albumin/Globulin Ratio 1.1 (1-3); BUN/Creatinine Ratio 19.8 (8-20); Calcium 9.4 mg/dL (8.6-10.3); EGFR Non-African American 97.5 (>60); Globulin 3.4 g/dL (2-4); Magnesium 2.1 mg/dL (1.9-2.7); Potassium 4.3 mmol/L (3.5-5.0); Total Bilirubin 0.3 mg/dL (0.2-1.0); Total Protein 7.3 g/dL (6.4-8.9)
[2019-03-04] MEDS: Nicotine PATCH 21 MG/24 HR* PATCH TRANSDERM SCH (08:19)
[2019-03-04] MEDS: Lisinopril TAB* 10 MG PO SCH (08:33)
[2019-03-04] MEDS: lamoTRIgine TAB(*) 100 MG PO SCH ×2 (08:33→20:34)
[2019-03-04] MEDS: Phenytoin CAP(*) 100 MG CAP.ER PO SCH ×3 (08:34→20:34)
[2019-03-04] MEDS: Citalopram TAB* 40 MG PO SCH (08:34)
[2019-03-04] MEDS: predniSONE TAB* 20 MG PO SCH ×2 (08:35→20:33)
[2019-03-04] MEDS: Ofloxacin 0.3% (Ear Drop)* 5 ml BTL RIGHT EAR SCH ×2 (08:35→20:34)
[2019-03-04] MEDS: GuaiFENesin DM* 5 ML UDC PO SCH (08:36)
--- NOTE | 2019-03-04 15:22 | CONS ---
NEUROLOGY CONSULTATION: DATE OF CONSULT: 03/04/19 HOSPITALIST: Dr. Cowan. LOCATION: He is an inpatient in room 412. CHIEF COMPLAINT: Seizure. HISTORY OF PRESENT ILLNESS: Leon Cordero is a 43-year-old currently homeless man who moved to the area recently. He has a history of epilepsy he says beginning at 17 years of age. He normally takes Dilantin 300 mg 3 times per day. He presented to the emergency room on 02/28/19 with chest pain and fever. He had recently been treated for pneumonia. He was hospitalized and then on the night of 03/02/19, he was diaphoretic and had a 90-second convulsion. His Dilantin level was subsequently checked at 2120 on 03/02/19 and was 4.8. He was subsequently given 400 mg of phenytoin 3 times per day. He has not had seizures since and he feels fine now. He said the last time he had a seizure was over a year ago. He admits to forgetting to take his phenytoin recently. He says that he has plenty on hand, but just forgot to take it. He had been living with his brother, but they were having arguments every day and so he ended up homeless. PAST MEDICAL HISTORY: Notable for bipolar disorder, diagnosis of multiple personality disorder, morbid obesity, low back pain, asthma, hypertension. MEDICATIONS: At admission were: 1. Lamotrigine 150 mg p.o. b.i.d. 2. Phenytoin 300 mg p.o. t.i.d., which he was not taking regularly. 3. Doxycycline. 4. Lisinopril. 5. Escitalopram. ALLERGIES: He is allergic to PENICILLIN. SOCIAL HISTORY: He is currently homeless. He smokes a pack of cigarettes per day. He does not drink alcohol. REVIEW OF SYSTEMS: Notable for recent shortness of breath and chills, no shortness of breath today. No chest pain today. No recent intestinal disorders. He has not had any falls. He feels steady on his feet. No problems with headaches. He did not bite his tongue. He does not have a local physician. PHYSICAL EXAM: He is morbidly obese. Temperature is 97.9, blood pressure 143/ 87, heart rate 70 and regular, respiratory rate is 20 and oxygen saturation is 95% on room air. Lungs are clear. Heart tones are distant, but there are no murmurs. Neck is supple. I do not hear any cervical bruits. Oral mucosa is moist and atraumatic. Neurological Exam: Pupils react equally from 4 down to 2.5 mm. Eye movements are normal. Visual jensen are full to confrontation. Palate and tongue are normal and speech is clear. Facial musculature and facial sensation to light touch are intact and symmetric. Motor exam reveals normal muscle tone and strength proximally and distally in upper and lower extremities. Sensory exam is intact to light touch in all 4 limbs. Reflexes are intact and symmetric in all limbs. Plantar responses are flexor. There is no rest, sustention, or action tremor. [id number] maneuver is normal. Gait is normal. He is alert and oriented and very pleasant. Language is fluent. Memory seems intact. DIAGNOSTIC STUDIES/LAB DATA: Laboratory data notable for EEG on 03/03/19 revealed diffuse beta activity, but no focal or epileptiform discharges. Echocardiogram revealed mild concentric left ventricular hypertrophy. Additional laboratory data is notable for glucose of 418 when he came in, 205 this morning. Chemistry profile was unremarkable including liver enzymes and electrolytes. While blood cell count is 14.1 when he came in and is up to 23.8 this morning. There is a left shift with 90.9% neutrophils. Urinalysis on is normal. Chest x-ray from 03/01/19 was read as no evidence for acute disease. A previously seen right lung infiltrate from 02/25/19 was resolved. IMPRESSION AND PLAN: Impression is that of a breakthrough seizure in the setting of noncompliance. He should continue his phenytoin at 300 mg 3 times per day. He should get an outpatient level checked. I gave him my card to follow up in my office within the next few weeks to a month and I can make those arrangements. I discussed my recommendations with Dr. Cowan. [id number]/[facility] #: [id number] [facility]
[2019-03-04] MEDS ORDERED: NS 0.9% 250 ML* 250 ML IV ONE (17:45)
--- NOTE | 2019-03-04 19:55 | PN ---
Subjective Date of Service: 03/04/19 Interval History: Pt seen and examined. Meds and labs reviewed. CC: N/A ROS: Denied PEREZ/dizziness, F/C, N/V, CP, SOB, increased cough, sputum production , abd pain, diarrhea, constipation, dysuria, myalgias, arthralgias, throat pain , and new skin lesions. The rest of the 14 point ROS are unremarkable. PHYSICAL EXAM: GEN APPEARANCE: Awake, not in acute distress HEENT: NC/AT, PERRLA, moist oral mucosa, (-) throat erythema NECK: Soft, supple, (-) cervical LAD, (-)JVD HEART: S1S2 WNL, RRR, No MRG CHEST: CTA, BL, GAE, No W/R/R ABD: Soft, ND/NT, NABS 4x Q EXT: No C/C/E SKIN: Warm to touch PSYCH: No active psychosis, hallucinations, depression, SI/HI Objective Active Medications: Acetaminophen (Tylenol Tab*) 650 mg PO Q4H PRN PRN Reason: FEVER/HEADACHE Last Admin: 03/02/19 21:12 Dose: 650 mg Albuterol/Ipratropium (Duoneb (Albuterol 2.5 Mg/Ipratropium 0.5 Mg)) 1 neb INH RT.[id number] AWAKE PRN PRN Reason: bs clear Stop: 03/09/19 23:59 Benzonatate (Tessalon Cap*) 100 mg PO Q6H PRN PRN Reason: COUGH Last Admin: 03/03/19 08:38 Dose: 100 mg Citalopram Hydrobromide (Celexa Tab*) 40 mg PO DAILY TU Last Admin: 03/04/19 08:34 Dose: 40 mg Dextrose (D50w Syringe 50 Ml*) 12.5 gm IV PUSH .FOR FS < 60 - SS PRN PRN Reason: FS < 60 Hydroxyzine HCl (Atarax Tab*) 50 mg PO Q6H PRN PRN Reason: ANXIETY Last Admin: 03/02/19 06:38 Dose: 50 mg Insulin Human Lispro (Humalog*) 0 units SUBCUT ACHS [facility]; Protocol Last Admin: 03/04/19 17:22 Dose: 6 units Insulin Human Lispro (Humalog*) 12 units SUBCUT AC [facility] Last Admin: 03/04/19 17:22 Dose: 12 unit Lamotrigine (Lamictal Tab(*)) 150 mg PO BID [facility] Last Admin: 03/04/19 08:33 Dose: 150 mg Lisinopril (Prinivil Tab*) 20 mg PO DAILY [facility] Last Admin: 03/04/19 08:33 Dose: 20 mg Lorazepam (Ativan Inj*) 1 mg IV PUSH Q6H PRN PRN Reason: AGITATION Last Admin: 03/03/19 22:21 Dose: 1 mg Nicotine (Nicotine Inhaler*) 10 mg INH Q2H PRN PRN Reason: CRAVING Last Admin: 03/04/19 17:20 Dose: 10 mg Nicotine (Nicotine Patch 21 Mg/24 Hr*) 1 patch TRANSDERM DAILY@0800 [facility] Last Admin: 03/04/19 08:19 Dose: Not Given Ofloxacin (Floxin 0.3% Otic.Lyn*) 5 drop RIGHT EAR BID [facility] Last Admin: 03/04/19 08:35 Dose: 5 drp Pharmacy Profile Note (Nicotine Patch Removal Note*) 1 note FOLLOW UP 0600 [facility] Last Admin: 03/04/19 05:26 Dose: Not Given Phenytoin Sodium (Dilantin Cap(*)) 400 mg PO TID [facility] Last Admin: 03/04/19 14:32 Dose: 400 mg Prednisone (Deltasone Tab*) 60 mg PO BID [facility] Last Admin: 03/04/19 08:35 Dose: 60 mg Vital Signs - 8 hr 03/04/19 15:29 Temperature 98.2 F Pulse Rate 80 Respiratory 20 Rate Blood Pressure 135/84 (mmHg) O2 Sat by Pulse 94 Oximetry Oxygen Devices in Use Now: None Result Diagrams: 03/04/19 05:54 03/04/19 05:54 Microbiology and Other Data: Microbiology 02/28/19 23:40 Aerobic Blood Culture - Preliminary Blood Venous No Growth Day 1 Anaerobic Blood Culture - Preliminary No Growth Day 1 02/28/19 23:40 Aerobic Blood Culture - Preliminary Blood Venous No Growth Day 1 Anaerobic Blood Culture - Preliminary No Growth Day 1 Assess/Plan/Problems-Billing Assessment: - Patient Problems (1) Chest pain Current Visit: Yes Status: Acute Code(s): R07.9 - CHEST PAIN, UNSPECIFIED SNOMED Code(s): 11846075 Comment: -Resolved -Risk scores: RENETTA = 1; Heart =1; low risk; will not order stress test unless frequent recurrence or 2D echo suggestive of wall motion abn -2D echo: EF =60-65% w/o wall motion abn -Likely musculoskeletal in nature -ACS R/O (2) Cough Current Visit: Yes Status: Acute Code(s): R05 - COUGH SNOMED Code(s): 78936803 Comment: -Improved -Likely due to mild asthma exacerbation -Continue nebulization meds as ordered -Continue Prednisone as ordered -Continue Robitussin-DM and Tessalon perles, PRN -Continue watchful waiting (3) Seizure disorder Current Visit: Yes Status: Acute Code(s): G40.909 - EPILEPSY, UNSP, NOT INTRACTABLE, WITHOUT STATUS EPILEPTICUS SNOMED Code(s): 652409790 Comment: -Phenytoin was found low, thought to be due to non-compliance -Appreciate Dr. Adrianne garduno -Continue Phenytoin home dose -Continue Lamotrigine (4) Anxiety Current Visit: Yes Status: Acute Code(s): F41.9 - ANXIETY DISORDER, UNSPECIFIED SNOMED Code(s): 99729636 Comment: -Continue PRN Hydroxyzine (5) HTN (hypertension) Current Visit: Yes Status: Acute Code(s): I10 - ESSENTIAL (PRIMARY) HYPERTENSION SNOMED Code(s): 65904165 (6) Tobacco abuse Current Visit: Yes Status: Acute Code(s): Z72.0 - TOBACCO USE SNOMED Code( s): 024743226 (7) DVT prophylaxis Current Visit: Yes Status: Acute Code(s): AXD1284 - Comment: -Refuses Lovenox; continue DELANEY stockings Status and Disposition: -For D/C in AM to [facility]
[2019-03-05] MEDS: Nicotine Inhaler* 10 MG AMP INH PRN ×4 (01:07→08:23)
[2019-03-05] MEDS: Nicotine Patch Removal NOTE FOLLOW UP SCH (05:26)
[2019-03-05] MEDS: Nicotine PATCH 21 MG/24 HR* PATCH TRANSDERM SCH (07:50)
[2019-03-05] MEDS: Insulin LISPRO* 1 UNITS UNIT SUBCUT SCH ×4 (08:25→12:10)
[2019-03-05] MEDS: Lisinopril TAB* 10 MG PO SCH (08:25)
[2019-03-05] MEDS: Phenytoin CAP(*) 100 MG CAP.ER PO SCH ×2 (08:25→12:24)
[2019-03-05] MEDS: Ofloxacin 0.3% (Ear Drop)* 5 ml BTL RIGHT EAR SCH (08:26)
[2019-03-05] MEDS: Citalopram TAB* 40 MG PO SCH (08:26)
[2019-03-05] MEDS: predniSONE TAB* 20 MG PO SCH (08:26)
[2019-03-05] MEDS: lamoTRIgine TAB(*) 100 MG PO SCH (08:26)
[2019-03-05 11:44] VITALS: BP 143/80
--- NOTE | 2019-03-06 01:51 | DS ---
CC: [facility] * DISCHARGE SUMMARY: DATE OF ADMISSION: 03/01/19 DATE OF DISCHARGE: 03/05/19 PCP: None. DISPOSITION: DSS. CONDITION: Good. PRIMARY DIAGNOSES: Asthma exacerbation, anxiety. SECONDARY DIAGNOSES: Diabetes, seizure disorder. CONSULT: Neurology. PERTINENT STUDIES/LABORATORY DATA: EKG - sinus tachycardia, 99, left axis deviation. No concerning ST changes. Chest x-ray without evidence for acute disease. Chest CTA on 02/28/19, no pulmonary emboli, no additional findings of acute disease. Transthoracic echocardiogram 03/03/19, mild concentric LVH, EF 60% to 65%. No wall motion abnormalities. EEG, 03/03/19, abundant beta rhythms consistent with possible drug effect. There are no focal or epileptiform abnormalities. HISTORY OF PRESENT ILLNESS AND HOSPITAL COURSE: This 43-year-old man with a history of schizoaffective disorder, seizure disorder, asthma, diabetes, and obesity, who presents with shortness of breath and cough. He reports that he moved to [place] 1 month ago from [place] where he lived on social security in a cousin's house. He reports that he spoke to his brother in [facility] and that will be okay to live with him; however, when he arrived to [place] he was told he was unable to live with his brother and has since become homeless. The patient reports the recent diagnoses of pneumonia and right otitis media and was placed on antibiotics with both symptoms improving approximately 3 weeks ago. He recently became diaphoretic and short of breath and was sent to the emergency room where he was noted to have a mild troponin elevation to 0.05 , which downtrended to normal by the second draw. His EKG was without concerning ST segment changes. He had been started on ceftriaxone, nebulizers, and NSAIDs in the ER and admitted to Medicine. While on the medical floor, he was ruled out for myocardial infarction given repeat negative troponins without concerning EKG findings and an echo without new wall motion abnormalities. His RENETTA score was 1. So given quick resolution and symptoms, it was decided that patient did not need an inpatient stress test. He was treated for asthma exacerbation with oral prednisone and nebulizers, and by day of discharge, the patient denied shortness of breath, wheezing, or cough. Of note, the patient did have a seizure on his second day of hospitalization and Neurology was consulted. His phenytoin level was low and the seizure was thought to be from nonadherence to his medications. The patient was also diagnosed with diabetes during this admission with A1c resulting at 7%. The patient reports that this is a new diagnosis for him and he received education from this MD, nursing and Nutrition with regard to lifestyle modification and medication adherence with necessary followup. Of note, he had been taking prednisone frequently as an outpatient, so a component of this elevated blood sugar could be from high steroid use. On day of discharge, the patient reported anxiety about leaving the hospital as he expressed that he had already missed his morning psychiatric appointment, but he was amenable to following up with DSS. He denied chest pain , cough, shortness of breath, wheezing, diaphoresis, or abdominal pain. Complete 10-point review of systems was otherwise negative. PHYSICAL EXAMINATION: Afebrile. Heart rate 70, blood pressure 139/84, respiratory rate 12, oxygen saturation 94% on room air. General: Obese man, appearing older than his stated age, alert and appropriately interactive. HEENT : Notable for paige facies. Neck: Unable to appreciate JVP due to habitus. Chest: Clear to auscultation bilaterally. No wheeze. Heart: Regular rate and rhythm. No murmurs, gallops, or rubs. Abdomen: Soft, nontender, nondistended. Extremities: Without edema. DISCHARGE PLAN: The patient is amenable to following up with the [facility] while he is trying to establish primary care in [place]. He will follow up with DSS as well. He is to continue his psychiatric medications as before. Only new medication for him will be steroid taper. He was asked to return to the hospital if he experiences recurrence of chest pain associated with diaphoresis or fevers. He is to quit smoking and nicotine inhaler is his preferred method for smoking cessation, which has been sent to his pharmacy. DISCHARGE MEDICATIONS: 1. Prednisone 40 mg daily, decreased by 10 mg every 3 days. 2. Phenytoin 400 mg t.i.d. 3. Lisinopril 20 mg daily. 4. Lamotrigine 150 mg twice a day. 5. Escitalopram 20 mg daily. 6. Hydroxyzine 50 mg p.o. 4 times a day p.r.n. anxiety. 7. Nicotine inhaler q.2 hours p.r.n. nicotine cravings. TIME SPENT: Approximately 60 minutes was spent on discharge with this patient, more than half of which was spent in [facility] coordination at bedside for interview and exam. [id number]/CPS #: [id number]
== END 2019-03-05 12:25 | disposition home or self-care (01) | DRG 141 ==
LOC: ED 20:42 → MED 03-01 11:04
PROVIDERS: ADMIT Student in an Organized Health Care Education/Training Program; ATTEND Internal Medicine
PROC: 4A10X4Z Monitoring of Central Nervous Electrical Activity, External Approach (ICD-10-PCS; principal; 2019-03-03)
DX: J45.901 Unspecified asthma with (acute) exacerbation (principal); F33.9 Major depressive disorder, recurrent, unspecified; G40.802 Other epilepsy, not intractable, without status epilepticus; Z68.41 Body mass index [BMI] 40.0-44.9, adult; F41.9 Anxiety disorder, unspecified; R00.0 Tachycardia, unspecified; F25.9 Schizoaffective disorder, unspecified; F31.9 Bipolar disorder, unspecified; F60.9 Personality disorder, unspecified; M19.90 Unspecified osteoarthritis, unspecified site; E66.01 Morbid (severe) obesity due to excess calories; I10 Essential (primary) hypertension; F17.210 Nicotine dependence, cigarettes, uncomplicated; E11.65 Type 2 diabetes mellitus with hyperglycemia; M17.12 Unilateral primary osteoarthritis, left knee; M46.90 Unspecified inflammatory spondylopathy, site unspecified; Z88.0 Allergy status to penicillin; Z91.14 Patient's other noncompliance with medication regimen; Z82.49 Family history of ischemic heart disease and other diseases of the circulatory system; Z59.0 Homelessness; Z81.8 Family history of other mental and behavioral disorders
CPT/HCPCS: 36415; 36600; 71045; 71275; 80053; 80175; 80185; 80329; 81003; 82803; 82947; 83036; 83605; 83735; 83880; 84100; 84146; 84484; 85025; 85027; 85379; 85610; 85730; 86140; 86703; 87040; 93005; 93306; 94640; 95816; 99285; A9270-GY; C8929; G0480; J0696; J1885; J2060; J3475; J7512; Q2009; Q9967

== ENCOUNTER 2019-03-05 18:16 | Inpatient (IN) | payer MEDICAID ==
--- NOTE | 2019-03-05 18:35 | ED ---
Shortness of Breath - HPI Summary HPI Summary: A 43 y/o M brought in by ambulance presents to ED with c/o SOB onset this evening [employer]. Pt was admitted to [facility] on 02/28 with PNA and released this afternoon. He had been staying at his brother's house, but his kicked him out on 02/28. When he got released today, he went to [facility], but they were unable to help him find housing. Pt was trying to get to his brothers house in [place], when he began having SOB. Associated sx: mild abd pain. Pt moved to [place] from [place] on January 18. - History of Current Complaint Chief Complaint: EDShortnessOfBreath Time Seen by Provider: 03/05/19 18:30 Hx Obtained From: Patient Onset/Duration: Still Present Timing: Constant Dyspnea At: Rest Related History: Obesity - Allergy/Home Medications Allergies/Adverse Reactions: Allergies Allergy/AdvReac Type Severity Reaction Status Date / Time Penicillins Allergy Vomiting Verified 02/25/19 10:42 PMH/Surg Hx/FS Hx/Imm Hx Previously Healthy: No Cardiovascular History: Reports: Hx Hypertension Respiratory History: Reports: Hx Asthma, Hx Chronic Obstructive Pulmonary Disease (COPD) Sensory History: Denies: Hx Contacts or Glasses, Hx Hearing Aid Opthamlomology History: Denies: Hx Contacts or Glasses Neurological History: Reports: Hx Seizures - Cancer History Cancer Type, Location and Year: seizures arthritis knees and back - Immunization History Immunizations Up to Date: Yes Infectious Disease History: No Infectious Disease History: Denies: Traveled Outside the [place] in Last 30 Days - Family History Known Family History: Positive: Hypertension - Father Negative: Cardiac Disease, Diabetes - Social History Occupation: Disabled Lives: With Family Alcohol Use: None Substance Use Type: Reports: None Smoking Status (MU): Heavy Every Day Tobacco Smoker Type: Cigarettes Amount Used/How Often: 1 pack /day Have You Smoked in the Last Year: Yes Review of Systems Positive: Shortness Of Breath Positive: Abdominal Pain - mild All Other Systems Reviewed And Are Negative: Yes Physical Exam - Summary Physical Exam Summary: Appearance: Well-appearing, morbidly obese M lying in bed comfortably in no acute distress Skin: Warm, dry, no obvious rash Eyes: sclera anicteric, no conjunctival pallor ENT: mucous membranes moist, pharynx appears normal Neck: Supple, nontender Respiratory: Diffuse expiratory wheezing with slightly diminished aeration. Cardiovascular: Normal S1, S2. No murmurs. Normal distal pulses in tibial and radial bilaterally. Abdomen: Soft, nontender, normal active bowel sounds present Musculoskeletal: Normal, Strength/ROM Intact Neurological: A&Ox3, awake and alert, mentation is normal, speech is fluent and appropriate Psychiatric: affect is normal, does not appear anxious or depressed Triage Information Reviewed: Yes Vital Signs On Initial Exam: Initial Vitals Temp Pulse Resp BP Pulse Ox 97.5 F 88 18 135/71 94 03/05/19 18:16 03/05/19 18:16 03/05/19 18:16 03/05/19 18:16 03/05/19 18:16 Vital Signs Reviewed: Yes Diagnostics - Vital Signs Vital Signs Temp Pulse Resp BP Pulse Ox 03/05/19 18:22 92 14 135/71 95 03/05/19 18:16 97.5 F 88 18 135/71 94 - Laboratory Result Diagrams: 03/07/19 05:08 03/07/19 05:08 Lab Statement: Any lab studies that have been ordered have been reviewed, and results considered in the medical decision making process. - Radiology CXR Radiology Interpretation Completed By: ED Physician Summary of Radiographic Findings: No acute process. Course/Dx - Course Course Of Treatment: Pt is a 43 y/o morbidly obese M presenting with SOB onset this evening. Pt was admitted to [facility] on 02/28 with PNA and released this afternoon. Pt says he is effectively homeless. PE shows diffuse expiratory wheezing with slightly diminished aeration. CXR shows no acute process. Consulted with Dr. Cowan, hospitalist, who will admit pt. - Diagnoses Provider Diagnoses: Cough, HTN (hypertension), Tobacco abuse, COPD exacerbation, Weakness - Physician Notifications Discussed Care of Patient With: Nathaniel Cowan - hospitalist Time Discussed With Above Provider: 19:33 Instructed by Provider To: Admit As Inpatient Discharge - Sign-Out/Discharge Documenting (check all that apply): Patient Departure - ADMIT Patient Received Moderate/Deep Sedation with Procedure: No - Discharge Plan Condition: Good Disposition: ADMITTED TO [facility] - Billing Disposition and Condition Condition: GOOD Disposition: Admitted to [facility] - Attestation Statements Document Initiated by Scribe: Yes Documenting Scribe: SooYoung Niraj Provider For Whom Scribe is Documenting (Include Credential): Dr. Hi Prater MD Scribe Attestation: I, kole Leslieibed for Dr. Hi Prater MD on 03/08/19 at 0641. Scribe Documentation Reviewed: Yes Provider Attestation: The documentation as recorded by the dusty, Binta Healy accurately reflects the service I personally performed and the decisions made by me, Dr. Hi Prater MD Status of Scribe Document: Viewed
[2019-03-05] MEDS ORDERED: Albuterol 2.5 MG/3 ML NEB.SOL* (0.083%) INH ONE (18:36)
[2019-03-05 19:02] LABS: Hematocrit 46 % (36-46); Hemoglobin 15.5 g/dL (14.0-18.0); Mean Corpuscular HGB Conc 34 g/dL (31-36); Mean Corpuscular Hemoglobin 30 pg (27-31); Mean Corpuscular Volume 89 fL (80-94); Mean Platelet Volume 7.5 fL (7.4-10.4); Platelet Count 356 10^3/uL (150-450); Red Blood Count 5.22 10^6 /uL (4.18-5.48); Red Cell Distribution Width 14 % (10.5-15); White Blood Count 21.9 10^3/uL (3.5-10.8)
[2019-03-05 19:15] LABS: Anion Gap 10 mmol/L (2-11); BUN/Creatinine Ratio 30.1 (8-20); Blood Urea Nitrogen 28 mg/dL (6-24); CO2 Carbon Dioxide 27 mmol/L (22-32); Calcium 9.4 mg/dL (8.6-10.3); Chloride 100 mmol/L (101-111); EGFR African American 107.8 (>60); EGFR Non-African American 89.1 (>60); Glucose 105 mg/dL (70-100); Potassium 3.9 mmol/L (3.5-5.0); Sodium 137 mmol/L (135-145)
[2019-03-05 19:34] LABS: Immature Granulocytes 2 % (0-9); Lymphocytes % 10 %; Monocytes % 4 %; Myelocytes % 1 % (0-1); Neutrophil % 83 %; Variant Lymph % 1 % (0-6)
[2019-03-05 19:35] LABS: ABS Neutrophils 18.6 10^3/ul (1.5-7.7)
[2019-03-05] MEDS ORDERED: Benzonatate CAP* 100 MG PO PRN (19:58)
[2019-03-05] MEDS ORDERED: Dextrose 50% Syringe 50 ML* 25 GM/50 ML SYRINGE IV PUSH PRN (20:01)
[2019-03-05] MEDS ORDERED: Albuterol 2.5 MG/3 ML NEB.SOL* (0.083%) INH PRN (20:06)
[2019-03-05 20:43] LABS: Troponin I 0.04 ng/mL (<0.04)
[2019-03-05] MEDS ORDERED: NS 0.9% 1000 ML** 400 ML IV ONE (21:00)
--- NOTE | 2019-03-05 22:21 | HP ---
ADMITTING HISTORY AND PHYSICAL: DATE OF ADMISSION: 03/05/19 CHIEF COMPLAINT: Shortness of breath. HISTORY OF PRESENT ILLNESS: The patient is a 43-year-old gentleman with history of schizoaffective disorder as well as manic and bipolar and seizure disorder, who was recently discharged a few hours prior to [facility]. He was told by DSS that they are unable to find him housing and was sent back to the bus to go to his pharmacy. Unfortunately, while he was taking a bus towards his [facility], he became short of breath. When he mentioned this at the bus stop , someone called EMS, which brought him back to the ED where he was found to be wheezing, and in the ED, he received albuterol nebulization. PAST MEDICAL HISTORY: . Seizure disorder. 2. Hypertension. 3. Asthma. 4. Bipolar disorder. 5. Manic depression. 6. Osteoarthritis. 7. Schizoaffective disorder reported with personality disorder. 8. Newly diagnosed diabetes mellitus with most recent HbA1c only of 7 and therefore not necessarily requiring insulin. PAST SURGICAL HISTORY: None. CURRENT MEDICATIONS: 1. Lamotrigine. 2. Escitalopram. 3. Phenytoin. 4. Hydroxyzine. 5. Lisinopril. 6. Prednisone. 7. Benzonatate. 8. Nicotine inhaler. ALLERGIES: PENICILLIN, where he mentions he would throw up blood when he would get them. FAMILY HISTORY: Family history of mental illness, unknown. Sister and father, hypertension. SOCIAL HISTORY: The patient is originally from [place] and went to [facility] to live near his brother, unfortunately he could not live with his brother and his family and has since been homeless. Had been admitted and was recently discharged a few hours ago, was sent to [facility] for mcc, unfortunately they could not provide assistance and the patient was sent away and could not get his prescribed medications and became short of breath. He denies any history of alcohol or IV drug use and smokes about 1 pack per day since age of 19. REVIEW OF SYSTEMS: Shortness of breath and chest pain. Denies any exacerbating or alleviating factors. No radiation, but this is not a new complaint since last admission and he had been ruled out for ACS and was found to be at low risk. Other than these 2 symptoms, he denied any headaches, fevers , chills, nausea, vomiting, abdominal pain, diarrhea, constipation, pain and/or increased frequency in urination, myalgias, arthralgias, throat pain or new skin lesions. The rest of the 14-point review of systems are otherwise unremarkable. PHYSICAL EXAMINATION GENERAL APPEARANCE: The patient is awake, not in acute distress. VITAL SIGNS: Shows the most recent vital signs of records with blood pressure of 135/71, 85 beats per minute heart rate, 97.5 degrees Fahrenheit, 20 per minute respiratory rate, saturating at 98% at room air. HEENT: Normocephalic, atraumatic. PERRLA. Extraocular muscles intact. Negative for icterus. Negative throat erythema. NECK: Soft, supple with no cervical lymphadenopathy. No JVD, although it is difficult to examine this given his obesity. CHEST: Clear to auscultation bilaterally with reproducible chest pain in the substernal area and only in mild to moderate palpation. He has good air entry. He is positive for mild wheezes with mild rhonchi, but no rales appreciated. HEART: S1, S2, within normal limits, regular rate and rhythm. No murmurs, rubs , or gallops. ABDOMEN: Soft, nondistended, nontender. Normoactive bowel sounds in x4 quadrants. EXTREMITIES: No cyanosis, clubbing, difficult to assess edema given his obesity. PSYCHIATRIC: No active psychosis, depression, suicidal or homicidal ideations. SKIN: Warm to touch. DIAGNOSTIC STUDIES/LAB DATA: Most recent and pertinent laboratories drawn showed CBC with a WBC of 21.9, patient on prednisone. H and H of 15.5 and 46, platelets are normal. Sodium and potassium are found to be normal. BUN mildly elevated at 28, creatinine of 0.93, glucose of 105, calcium of 9.4. ASSESSMENT AND PLAN: The patient is a 43-year-old gentleman with history of schizoaffective disorder as well as manic and bipolar and seizure disorders, was recently discharged a few hours ago and was sent to [facility] for housing, unfortunately was sent back due to asthma exacerbation and failure to provide mcc. 1. Asthma exacerbation, mild. The patient has good air entry and not in distress on room air on exam and patient is able to speak in full uninterrupted sentences. Therefore, we will place the patient on IV Solu-Medrol 60 IV q.12, DuoNeb, and p.r.n. albuterol as ordered. Advised to quit smoking as well. 2. Newly diagnosed diabetes. The patient is not insulin requiring especially given HbA1c is only 7, which can certainly be controlled with diet therapy as well as losing weight given his obesity. His fingersticks are within acceptable levels in the 100s, given he has not taken his prednisone due to inability to provide assistance as an outpatient by [facility]. At this time, we will place the patient on heart healthy, consistent carbohydrate diet and insulin sliding scale. 3. Chest pain, reproducible. On previous admissions a few days back, his risk scores were calculated to have a RENETTA of 1 and HEART score of 1, which is low risk, and hence was ruled out for acute coronary syndrome. A 2-D echo was also done without any wall motion abnormalities with troponins being negative. Stress test was not done and I will defer with hospitalist colleague in a.m. if stress test might be needed given the patient is likely going to be noncompliant and likely to somatize given his psychiatric issues and noncompliance. However, his low risk of coronary artery disease may also predispose him to false positive if it is done, and hence will defer. We will trend troponins at this time to rule out for acute coronary syndrome. 4. Seizure disorder. We will continue lamotrigine and phenytoin. 5. Anxiety. Continue hydroxyzine and escitalopram. 6. Hypertension, well controlled. Continue lisinopril and continue heart- healthy diet. 7. Tobacco abuse. Advised lifestyle modifications, continue p.r.n. nicotine inhaler. 8. DVT prophylaxis: We will place the patient on Lovenox subcu as ordered. 9. Disposition: For consultation with social workers to find better housing. On this admission for TSH in a.m. and fasting lipid levels to complete workup. [id number]/[facility] #: [id number] [facility]
[2019-03-05] MEDS: Phenytoin CAP(*) 100 MG CAP.ER PO SCH (22:55)
[2019-03-05] MEDS: Aspirin TAB* 325 MG PO SCH (22:56)
[2019-03-05] MEDS: lamoTRIgine TAB(*) 100 MG PO SCH (22:57)
[2019-03-05] MEDS: Insulin LISPRO* 1 UNITS UNIT SUBCUT SCH (22:58)
[2019-03-05] MEDS: Enoxaparin(*) 40 MG/0.4 ML SYR SUBCUT SCH (22:58)
[2019-03-05] MEDS: methylPREDNISolone 125 MG* 2 ML VIAL IV SCH (22:59)
[2019-03-05] MEDS: Nicotine Inhaler* 10 MG AMP INH PRN (22:59)
[2019-03-05] MEDS ORDERED: Mouth Piece, Nicotine* 1 EACH CARTRIDGE INH ONE (23:00)
[2019-03-06] MEDS ORDERED: Albuterol 2.5 MG/3 ML NEB.SOL* (0.083%) INH PRN (00:46)
[2019-03-06] MEDS ORDERED: Albuterol/Ipratropium NEB.SOL* Albuterol 2.5 MG/Ipratropium 0.5 MG 3 ML INH SCH (01:00)
[2019-03-06] MEDS: Nicotine Inhaler* 10 MG AMP INH PRN ×2 (02:49→05:57)
[2019-03-06 04:02] LABS: Troponin I 0.04 ng/mL (<0.04)
[2019-03-06 05:59] LABS: Hematocrit 45 % (36-46); Hemoglobin 15.2 g/dL (14.0-18.0); Mean Corpuscular HGB Conc 34 g/dL (31-36); Mean Corpuscular Hemoglobin 30 pg (27-31); Mean Corpuscular Volume 89 fL (80-94); Mean Platelet Volume 7.8 fL (7.4-10.4); Platelet Count 360 10^3/uL (150-450); Red Blood Count 5.07 10^6 /uL (4.18-5.48); Red Cell Distribution Width 13 % (10.5-15); White Blood Count 17.3 10^3/uL (3.5-10.8)
[2019-03-06 06:30] LABS: ALT 33 U/L (7-52); Albumin/Globulin Ratio 1.3 (1-3); Alkaline Phosphatase 89 U/L (34-104); BUN/Creatinine Ratio 28.1 (8-20); Blood Urea Nitrogen 25 mg/dL (6-24); CO2 Carbon Dioxide 27 mmol/L (22-32); Calcium 8.9 mg/dL (8.6-10.3); Chloride 100 mmol/L (101-111); Cholesterol 182 mg/dL; EGFR African American 113.4 (>60); EGFR Non-African American 93.7 (>60); Globulin 3.1 g/dL (2-4); Glucose 270 mg/dL (70-100); HDL Cholesterol 31.3 mg/dL; LDL Cholesterol 94 mg/dL; Magnesium 2.2 mg/dL (1.9-2.7); Phosphorus 3.5 mg/dL (2.5-5.0); Sodium 134 mmol/L (135-145); Total Protein 7.1 g/dL (6.4-8.9); Triglycerides 286 mg/dL
[2019-03-06 06:37] LABS: TSH (Thyroid Stimulating Horm) 3.04 mcIU/mL (0.34-5.60)
[2019-03-06 07:04] LABS: Anion Gap 7 mmol/L (2-11); Potassium 4.8 mmol/L (3.5-5.0)
[2019-03-06 07:43] LABS: Troponin I 0.05 ng/mL (<0.04)
[2019-03-06] MEDS: Insulin LISPRO* 1 UNITS UNIT SUBCUT SCH ×4 (09:05→20:36)
[2019-03-06] MEDS: methylPREDNISolone 125 MG* 2 ML VIAL IV SCH ×2 (09:05→20:36)
[2019-03-06] MEDS: Phenytoin CAP(*) 100 MG CAP.ER PO SCH ×3 (09:06→20:35)
[2019-03-06] MEDS: Aspirin TAB* 325 MG PO SCH (09:06)
[2019-03-06] MEDS: lamoTRIgine TAB(*) 100 MG PO SCH ×2 (09:07→20:34)
[2019-03-06] MEDS: Escitalopram * 20 MG TABLET PO SCH (09:08)
[2019-03-06] MEDS: Lisinopril TAB* 10 MG PO SCH (09:08)
[2019-03-06] MEDS: Enoxaparin(*) 40 MG/0.4 ML SYR SUBCUT SCH (20:35)
--- NOTE | 2019-03-06 20:54 | PN ---
Subjective Interval History: CAT call this AM for dizziness and somnolence. Pt able to answer questions during this time. Reports room spinning. No nystagmus on exam. Vitals and fingerstick unremarkable. When trying to perform ABG, pt returns to baseline mental status and refuses ABG. Pt at another point asking to leave AMA because he did not like carb-controlled diet. Patient later states he is concerned about his diabetes and fearful. When brought up his earlier refusal to eat healthier, he states he knows he has frequent mood changes because of his "mental health problems" and apologizes profusely. States he appreciates care. He is looking forward to meeting with case reviewer tomorrow. Objective Active Medications: Albuterol (Ventolin 2.5 Mg/3 Ml Neb.Lyn*) 2.5 mg INH Q4H PRN PRN Reason: SOB/WHEEZING Aspirin (Aspirin Tab*) 325 mg PO DAILY [facility] Last Admin: 03/06/19 09:06 Dose: 325 mg Benzonatate (Tessalon Cap*) 100 mg PO TID PRN PRN Reason: COUGH Dextrose (D50w Syringe 50 Ml*) 12.5 gm IV PUSH .FOR FS < 60 - SS PRN PRN Reason: FS < 60 Enoxaparin Sodium (Lovenox(*)) 40 mg SUBCUT Q24H [facility] Last Admin: 03/06/19 20:35 Dose: 40 mg Escitalopram Oxalate (Lexapro *) 20 mg PO DAILY [facility] Last Admin: 03/06/19 09:08 Dose: 20 mg Hydroxyzine HCl (Atarax Tab*) 50 mg PO QID PRN PRN Reason: ANXIETY Insulin Human Lispro (Humalog*) 0 units SUBCUT ACHS [facility]; Protocol Last Admin: 03/06/19 20:36 Dose: 3 units Lamotrigine (Lamictal Tab(*)) 150 mg PO BID [facility] Last Admin: 03/06/19 20:34 Dose: 150 mg Lisinopril (Prinivil Tab*) 20 mg PO DAILY [facility] Last Admin: 03/06/19 09:08 Dose: 20 mg Methylprednisolone Sodium Succinate (Solu-Medrol 125mg *) 60 mg IV Q12H [facility] Last Admin: 03/06/19 20:36 Dose: 60 mg Nicotine (Nicotine Inhaler*) 10 mg INH Q2H PRN PRN Reason: CRAVING Last Admin: 03/06/19 05:57 Dose: 10 mg Phenytoin Sodium (Dilantin Cap(*)) 300 mg PO TID TU Last Admin: 03/06/19 20:35 Dose: 300 mg Vital Signs - 8 hr 03/06/19 03/06/19 15:28 18:51 Temperature 97.3 F 97.0 F Pulse Rate 68 71 Respiratory 16 16 Rate Blood Pressure 148/73 148/62 (mmHg) O2 Sat by Pulse 96 96 Oximetry Oxygen Devices in Use Now: Nasal Cannula Eyes: - - no nystagmus Ears/Nose/Mouth/Throat: Mucous Membranes Moist Neck: - - very thick Respiratory: Clear to Auscultation Cardiovascular: RRR Abdominal: NL Sounds; No Tenderness; No Distention Result Diagrams: 03/06/19 05:48 03/06/19 05:48 Assess/Plan/Problems-Billing Assessment: 43 homeless man with schizoaffective disorder, asthma, recently admitted for exacerbation and returning due to inability to find housing and asthma exacerbation in the setting of unable to access meds. - Patient Problems (1) Asthma exacerbation, mild Comment: - cont on pred marino, nebs (2) Chest pain Current Visit: Yes Status: Acute Code(s): R07.9 - CHEST PAIN, UNSPECIFIED SNOMED Code(s): 37192446 Comment: Risk scores: RENETTA = 1; Heart =1; low risk; will not order stress test unless frequent recurrence or 2D echo suggestive of wall motion abn -2D echo: EF =60-65% w/o wall motion abn -Likely musculoskeletal in nature -ACS R/O (3) Seizure disorder Current Visit: Yes Status: Acute Code(s): G40.909 - EPILEPSY, UNSP, NOT INTRACTABLE, WITHOUT STATUS EPILEPTICUS SNOMED Code(s): 482822891 Comment: -Phenytoin was found low, thought to be due to non-compliance -Appreciate Dr. Adrianne garduno -Continue Phenytoin home dose -Continue Lamotrigine (4) HTN (hypertension) Current Visit: Yes Status: Acute Code(s): I10 - ESSENTIAL (PRIMARY) HYPERTENSION SNOMED Code(s): 84425000 Comment: lisinopril 20 (5) Schizoaffective disorder Current Visit: Yes Status: Acute Code(s): F25.9 - SCHIZOAFFECTIVE DISORDER, UNSPECIFIED SNOMED Code(s): 27075853 Comment: lamotrigine (6) Anxiety Current Visit: No Status: Acute Code(s): F41.9 - ANXIETY DISORDER, UNSPECIFIED SNOMED Code(s): 82797496 Comment: -Continue PRN Hydroxyzine
[2019-03-06] MEDS: Acetaminophen TAB* 325 MG PO PRN (22:24)
[2019-03-07 05:44] LABS: ABS Basophils 0.1 10^3/ul (0-0.2); ABS Eosinophils 0 10^3/ul (0-0.6); ABS Lymphocytes 2.5 10^3/ul (1.0-4.8); ABS Monocytes 0.8 10^3/ul (0-0.8); ABS Neutrophils 14.2 10^3/ul (1.5-7.7); ABS Nucleated RBC 0 10^3/ul; Eosinophil % 0.1 %; Hematocrit 46 % (36-46); Hemoglobin 15.5 g/dL (14.0-18.0); Lymphocyte % 13.9 %; Mean Corpuscular HGB Conc 34 g/dL (31-36); Mean Corpuscular Hemoglobin 30 pg (27-31); Mean Corpuscular Volume 90 fL (80-94); Mean Platelet Volume 8.1 fL (7.4-10.4); Nucleated Red Blood Cells % 0.1; Platelet Count 302 10^3/uL (150-450); Red Blood Count 5.13 10^6 /uL (4.18-5.48); Red Cell Distribution Width 13 % (10.5-15); White Blood Count 17.6 10^3/uL (3.5-10.8)
[2019-03-07 06:03] LABS: Troponin I 0.03 ng/mL (<0.04)
[2019-03-07 06:07] LABS: BUN/Creatinine Ratio 23.5 (8-20); EGFR African American 126.4 (>60); EGFR Non-African American 104.5 (>60); Magnesium 2.2 mg/dL (1.9-2.7); Potassium 4.4 mmol/L (3.5-5.0)
[2019-03-07] MEDS: Insulin LISPRO* 1 UNITS UNIT SUBCUT SCH ×4 (08:03→20:58)
[2019-03-07] MEDS ORDERED: predniSONE TAB* 20 MG PO SCH (09:00)
[2019-03-07] MEDS ORDERED: Aspirin TAB* 325 MG PO SCH (09:00)
[2019-03-07] MEDS: lamoTRIgine TAB(*) 100 MG PO SCH ×2 (09:41→20:55)
[2019-03-07] MEDS: Lisinopril TAB* 10 MG PO SCH (09:41)
[2019-03-07] MEDS: Phenytoin CAP(*) 100 MG CAP.ER PO SCH ×4 (09:42→20:56)
[2019-03-07] MEDS: Escitalopram * 20 MG TABLET PO SCH (09:43)
[2019-03-07] MEDS: Acetaminophen TAB* 325 MG PO PRN (11:46)
[2019-03-07] MEDS ORDERED: Nicotine GUM* 2 MG PO PRN (14:34)
--- NOTE | 2019-03-07 18:47 | PN ---
Subjective Interval History: Pt again threatening to leave AMA. This time because nurse was unable to walk patient the moment he wanted assistance walking. Eventually redirectable, reasonable, and apologetic. Plan to go leave with [facility] on Sunday morning. Objective Active Medications: Acetaminophen (Tylenol Tab*) 650 mg PO Q6H PRN PRN Reason: PAIN or FEVER Last Admin: 03/07/19 11:46 Dose: 650 mg Albuterol (Ventolin 2.5 Mg/3 Ml Neb.Lyn*) 2.5 mg INH Q4H PRN PRN Reason: SOB/WHEEZING Aspirin (Aspirin 81 Mg Chew Tab*) 81 mg PO DAILY [facility] Benzonatate (Tessalon Cap*) 100 mg PO TID PRN PRN Reason: COUGH Dextrose (D50w Syringe 50 Ml*) 12.5 gm IV PUSH .FOR FS < 60 - SS PRN PRN Reason: FS < 60 Enoxaparin Sodium (Lovenox(*)) 40 mg SUBCUT Q24H [facility] Last Admin: 03/06/19 20:35 Dose: 40 mg Escitalopram Oxalate (Lexapro *) 20 mg PO DAILY [facility] Last Admin: 03/07/19 09:43 Dose: 20 mg Hydroxyzine HCl (Atarax Tab*) 50 mg PO QID PRN PRN Reason: ANXIETY Insulin Human Lispro (Humalog*) 0 units SUBCUT ACHS [facility]; Protocol Last Admin: 03/07/19 11:48 Dose: Not Given Lamotrigine (Lamictal Tab(*)) 150 mg PO BID [facility] Last Admin: 03/07/19 09:41 Dose: 150 mg Lisinopril (Prinivil Tab*) 20 mg PO DAILY [facility] Last Admin: 03/07/19 09:41 Dose: 20 mg Nicotine (Nicotine Inhaler*) 10 mg INH Q2H PRN PRN Reason: CRAVING Last Admin: 03/06/19 05:57 Dose: 10 mg Nicotine Polacrilex (Nicotine Gum*) 2 mg PO Q2H PRN PRN Reason: CRAVING Phenytoin Sodium (Dilantin Cap(*)) 300 mg PO TID [facility] Last Admin: 03/07/19 15:50 Dose: 300 mg Prednisone (Deltasone Tab*) 40 mg PO DAILY [facility] Last Admin: 03/07/19 09:41 Dose: 40 mg Vital Signs - 8 hr 03/07/19 03/07/19 11:25 15:23 Temperature 97.8 F 97.5 F Pulse Rate 63 72 Respiratory 19 16 Rate Blood Pressure 143/65 151/82 (mmHg) O2 Sat by Pulse 95 95 Oximetry Oxygen Devices in Use Now: None Appearance: obese, NAD, no increased WOB Ears/Nose/Mouth/Throat: Clear Oropharnyx, Mucous Membranes Moist Neck: - - thick Respiratory: Clear to Auscultation Cardiovascular: RRR Abdominal: NL Sounds; No Tenderness; No Distention Result Diagrams: 03/07/19 05:08 03/07/19 05:08 Assess/Plan/Problems-Billing Assessment: 43 homeless man with schizoaffective disorder, asthma, recently admitted for exacerbation and returning due to inability to find housing, as well as asthma exacerbation in the setting of unable to access meds. - Patient Problems (1) Asthma exacerbation, mild Comment: - cont on pred marino, nebs (2) Chest pain Comment: Resolved without intervention. RENETTA = 1; Heart =1; low risk. Echo: EF =60-65% w/o wall motion abn (3) Seizure disorder Comment: -Phenytoin was found low, thought to be due to non-compliance -Appreciate Dr. Adrianne garduno -Continue Phenytoin home dose -Continue Lamotrigine (4) HTN (hypertension) Comment: lisinopril 20 (5) Schizoaffective disorder Comment: lamotrigine (6) Anxiety Comment: -Continue PRN Hydroxyzine Status and Disposition: Will leave with [facility] on Sunday.
[2019-03-07] MEDS: Enoxaparin(*) 40 MG/0.4 ML SYR SUBCUT SCH (20:56)
[2019-03-08] MEDS: Insulin LISPRO* 1 UNITS UNIT SUBCUT SCH ×4 (08:02→20:37)
[2019-03-08] MEDS: hydrOXYzine HCL TAB* 50 MG PO PRN ×2 (08:03→16:47)
[2019-03-08] MEDS: predniSONE TAB* 20 MG PO SCH (08:03)
[2019-03-08] MEDS: lamoTRIgine TAB(*) 100 MG PO SCH ×2 (08:04→20:35)
[2019-03-08] MEDS: Lisinopril TAB* 10 MG PO SCH (08:04)
[2019-03-08] MEDS: Aspirin 81 mg CHEW TAB* 81 MG TAB.CHEW PO SCH (08:05)
[2019-03-08] MEDS: Escitalopram * 20 MG TABLET PO SCH (08:05)
[2019-03-08] MEDS: Phenytoin CAP(*) 100 MG CAP.ER PO SCH ×3 (08:05→20:34)
[2019-03-08] MEDS ORDERED: Acetaminophen TAB* 325 MG PO PRN (16:31)
--- NOTE | 2019-03-08 19:37 | PN ---
Subjective Interval History: Pt again threatening to leave AMA. States he just wants to do whatever he wants. When asked for an example, patient states he wants to eat vee and also wants to go back to [place]. He is unable to state how [place] would get back south. Again, redirectable and apologetic. Objective Active Medications: Acetaminophen (Tylenol Tab*) 650 mg PO Q4H PRN PRN Reason: PAIN or FEVER Last Admin: 03/08/19 16:48 Dose: 650 mg Albuterol (Ventolin 2.5 Mg/3 Ml Neb.Lyn*) 2.5 mg INH Q4H PRN PRN Reason: SOB/WHEEZING Aspirin (Aspirin 81 Mg Chew Tab*) 81 mg PO DAILY [facility] Last Admin: 03/08/19 08:05 Dose: 81 mg Benzonatate (Tessalon Cap*) 100 mg PO TID PRN PRN Reason: COUGH Dextrose (D50w Syringe 50 Ml*) 12.5 gm IV PUSH .FOR FS < 60 - SS PRN PRN Reason: FS < 60 Enoxaparin Sodium (Lovenox(*)) 40 mg SUBCUT Q24H [facility] Last Admin: 03/07/19 20:56 Dose: 40 mg Escitalopram Oxalate (Lexapro *) 20 mg PO DAILY [facility] Last Admin: 03/08/19 08:05 Dose: 20 mg Hydroxyzine HCl (Atarax Tab*) 50 mg PO QID PRN PRN Reason: ANXIETY Last Admin: 03/08/19 16:47 Dose: 50 mg Insulin Human Lispro (Humalog*) 0 units SUBCUT [facility]; Protocol Last Admin: 03/08/19 16:42 Dose: Not Given Lamotrigine (Lamictal Tab(*)) 150 mg PO BID [facility] Last Admin: 03/08/19 08:04 Dose: 150 mg Lisinopril (Prinivil Tab*) 20 mg PO DAILY [facility] Last Admin: 03/08/19 08:04 Dose: 20 mg Nicotine (Nicotine Inhaler*) 10 mg INH Q2H PRN PRN Reason: CRAVING Last Admin: 03/06/19 05:57 Dose: 10 mg Nicotine Polacrilex (Nicotine Gum*) 2 mg PO Q2H PRN PRN Reason: CRAVING Last Admin: 03/08/19 08:05 Dose: 2 mg Phenytoin Sodium (Dilantin Cap(*)) 300 mg PO TID [facility] Last Admin: 03/08/19 13:44 Dose: 300 mg Prednisone (Deltasone Tab*) 30 mg PO DAILY [facility] Last Admin: 03/08/19 08:03 Dose: 30 mg Vital Signs - 8 hr 03/08/19 03/08/19 03/08/19 12:38 15:25 17:45 Temperature 98.3 F 98.0 F Pulse Rate 77 80 Respiratory 20 16 26 Rate Blood Pressure 140/74 168/83 (mmHg) O2 Sat by Pulse 95 94 Oximetry Oxygen Devices in Use Now: None Result Diagrams: 03/07/19 05:08 03/07/19 05:08 Assess/Plan/Problems-Billing Assessment: 43 homeless man with schizoaffective disorder, asthma, recently admitted for exacerbation and returning due to inability to find housing, as well as asthma exacerbation in the setting of unable to access meds. - Patient Problems (1) Asthma exacerbation, mild Comment: - cont on pred taper, nebs (2) Chest pain Comment: Resolved without intervention. RENETTA = 1; Heart =1; low risk. Echo: EF =60-65% w/o wall motion abn (3) Seizure disorder Comment: -Continue Phenytoin home dose -Continue Lamotrigine (4) HTN (hypertension) Comment: lisinopril 20 (5) Schizoaffective disorder Comment: lamotrigine (6) Anxiety Comment: -Continue PRN Hydroxyzine Status and Disposition: Will leave with [facility] on Sunday.
[2019-03-08] MEDS: Enoxaparin(*) 40 MG/0.4 ML SYR SUBCUT SCH (20:35)
[2019-03-09] MEDS: Insulin LISPRO* 1 UNITS UNIT SUBCUT SCH ×4 (07:38→21:54)
[2019-03-09] MEDS: Phenytoin CAP(*) 100 MG CAP.ER PO SCH ×3 (08:07→21:44)
[2019-03-09] MEDS: Escitalopram * 20 MG TABLET PO SCH (08:07)
[2019-03-09] MEDS: lamoTRIgine TAB(*) 100 MG PO SCH ×2 (08:07→21:44)
[2019-03-09] MEDS: Lisinopril TAB* 10 MG PO SCH (08:07)
[2019-03-09] MEDS: Aspirin 81 mg CHEW TAB* 81 MG TAB.CHEW PO SCH (08:07)
[2019-03-09] MEDS: predniSONE TAB* 20 MG PO SCH (08:08)
--- NOTE | 2019-03-09 15:59 | PN ---
Subjective Date of Service: 03/09/19 Interval History: Pt seen and examined. Meds and labs reviewed. CC: N/A ROS: Denied PEREZ/dizziness, F/C, N/V, CP, SOB, increased cough, sputum production , abd pain, diarrhea, constipation, dysuria, myalgias, arthralgias, throat pain , and new skin lesions. The rest of the 14 point ROS are unremarkable. PHYSICAL EXAM: GEN APPEARANCE: Awake, not in acute distress, obese HEENT: NC/AT, PERRLA, moist oral mucosa, (-) throat erythema NECK: Soft, supple, (-) cervical LAD, (-)JVD HEART: S1S2 WNL, RRR, No MRG CHEST: CTA, BL, GAE, No W/R/R (+)Anterior substernal Chest tenderness ABD: Soft, ND/NT, NABS 4x Q EXT: No C/C/E SKIN: Warm to touch PSYCH: No active psychosis, hallucinations, depression, SI/HI Objective Active Medications: Acetaminophen (Tylenol Tab*) 650 mg PO Q4H PRN PRN Reason: PAIN or FEVER Last Admin: 03/08/19 16:48 Dose: 650 mg Albuterol (Ventolin 2.5 Mg/3 Ml Neb.Lyn*) 2.5 mg INH Q4H PRN PRN Reason: SOB/WHEEZING Aspirin (Aspirin 81 Mg Chew Tab*) 81 mg PO DAILY [facility] Last Admin: 03/09/19 08:07 Dose: 81 mg Benzonatate (Tessalon Cap*) 100 mg PO TID PRN PRN Reason: COUGH Dextrose (D50w Syringe 50 Ml*) 12.5 gm IV PUSH .FOR FS < 60 - SS PRN PRN Reason: FS < 60 Enoxaparin Sodium (Lovenox(*)) 40 mg SUBCUT Q24H [facility] Last Admin: 03/08/19 20:35 Dose: 40 mg Escitalopram Oxalate (Lexapro *) 20 mg PO DAILY [facility] Last Admin: 03/09/19 08:07 Dose: 20 mg Hydroxyzine HCl (Atarax Tab*) 50 mg PO QID PRN PRN Reason: ANXIETY Last Admin: 03/08/19 16:47 Dose: 50 mg Insulin Human Lispro (Humalog*) 0 units SUBCUT [facility]; Protocol Last Admin: 03/09/19 13:28 Dose: Not Given Lamotrigine (Lamictal Tab(*)) 150 mg PO BID [facility] Last Admin: 03/09/19 08:07 Dose: 150 mg Lisinopril (Prinivil Tab*) 20 mg PO DAILY [facility] Last Admin: 03/09/19 08:07 Dose: 20 mg Nicotine (Nicotine Inhaler*) 10 mg INH Q2H PRN PRN Reason: CRAVING Last Admin: 03/06/19 05:57 Dose: 10 mg Nicotine Polacrilex (Nicotine Gum*) 2 mg PO Q2H PRN PRN Reason: CRAVING Last Admin: 03/08/19 08:05 Dose: 2 mg Phenytoin Sodium (Dilantin Cap(*)) 300 mg PO TID [facility] Last Admin: 03/09/19 13:48 Dose: 300 mg Prednisone (Deltasone Tab*) 20 mg PO DAILY [facility] Vital Signs - 8 hr 03/09/19 03/09/19 08:31 10:48 Temperature 97.7 F 97.7 F Pulse Rate 68 72 Respiratory 22 26 Rate Blood Pressure 136/92 126/68 (mmHg) O2 Sat by Pulse 96 96 Oximetry Oxygen Devices in Use Now: None Result Diagrams: 03/07/19 05:08 03/07/19 05:08 Assess/Plan/Problems-Billing Assessment: 43 homeless man with schizoaffective disorder, asthma, recently admitted for exacerbation and returning due to inability to find housing, as well as asthma exacerbation in the setting of unable to access meds. - Patient Problems (1) Asthma exacerbation, mild Current Visit: Yes Status: Acute Code(s): J45.901 - UNSPECIFIED ASTHMA WITH (ACUTE) EXACERBATION SNOMED Code(s): 744499927 Comment: -Improved -Decrease Prednisone tomorrow -Continue PRN nebs (2) Chest pain Current Visit: Yes Status: Acute Code(s): R07.9 - CHEST PAIN, UNSPECIFIED SNOMED Code(s): 99473911 Comment: -Resolved without intervention. RENETTA = 1; Heart =1; low risk. Echo: EF =60-65% w/o wall motion abn -(+)Substernal chest tenderness likely indicative of musculoskeletal cause (3) Seizure disorder Current Visit: Yes Status: Acute Code(s): G40.909 - EPILEPSY, UNSP, NOT INTRACTABLE, WITHOUT STATUS EPILEPTICUS SNOMED Code(s): 510900326 Comment: -Continue Phenytoin home dose -Continue Lamotrigine (4) HTN (hypertension) Current Visit: Yes Status: Acute Code(s): I10 - ESSENTIAL (PRIMARY) HYPERTENSION SNOMED Code(s): 12277465 Comment: lisinopril 20 (5) Schizoaffective disorder Current Visit: Yes Status: Acute Code(s): F25.9 - SCHIZOAFFECTIVE DISORDER, UNSPECIFIED SNOMED Code(s): 77687575 Comment: lamotrigine (6) Anxiety Current Visit: Yes Status: Acute Code(s): F41.9 - ANXIETY DISORDER, UNSPECIFIED SNOMED Code(s): 50639909 Comment: -Continue PRN Hydroxyzine Status and Disposition: -Will leave with [facility] on Sunday.
[2019-03-09] MEDS: Enoxaparin(*) 40 MG/0.4 ML SYR SUBCUT SCH (21:46)
[2019-03-10 07:12] LABS: Hematocrit 49 % (36-46); Hemoglobin 16.3 g/dL (14.0-18.0); Mean Corpuscular HGB Conc 34 g/dL (31-36); Mean Corpuscular Hemoglobin 30 pg (27-31); Mean Corpuscular Volume 89 fL (80-94); Mean Platelet Volume 7.2 fL (7.4-10.4); Platelet Count 330 10^3/uL (150-450); Red Blood Count 5.46 10^6 /uL (4.18-5.48); Red Cell Distribution Width 14 % (10.5-15); White Blood Count 14.4 10^3/uL (3.5-10.8)
[2019-03-10 07:35] LABS: Albumin 3.9 g/dL (3.2-5.2); Albumin/Globulin Ratio 1.2 (1-3); BUN/Creatinine Ratio 20.9 (8-20); Calcium 8.9 mg/dL (8.6-10.3); EGFR African American 110.6 (>60); EGFR Non-African American 91.4 (>60); Globulin 3.2 g/dL (2-4); Phosphorus 3.6 mg/dL (2.5-5.0); Total Bilirubin 0.5 mg/dL (0.2-1.0); Total Protein 7.1 g/dL (6.4-8.9)
[2019-03-10] MEDS: Insulin LISPRO* 1 UNITS UNIT SUBCUT SCH ×2 (08:09→12:14)
[2019-03-10] MEDS ORDERED: predniSONE TAB* 20 MG PO SCH (09:00)
[2019-03-10] MEDS: Phenytoin CAP(*) 100 MG CAP.ER PO SCH (09:00)
[2019-03-10] MEDS: Escitalopram * 20 MG TABLET PO SCH (09:06)
[2019-03-10] MEDS: Lisinopril TAB* 10 MG PO SCH (09:06)
[2019-03-10] MEDS: lamoTRIgine TAB(*) 100 MG PO SCH (09:07)
[2019-03-10] MEDS: Aspirin 81 mg CHEW TAB* 81 MG TAB.CHEW PO SCH (09:07)
[2019-03-10 11:04] VITALS: BP 134/81
--- NOTE | 2019-03-10 16:57 | DS ---
CC: Hi Prater MD; Jeni Nichole MD * DISCHARGE SUMMARY: DATE OF ADMISSION: 03/07/19. DATE OF DISCHARGE: 03/10/19 DISCHARGE CONDITION: Good. DISCHARGE DISPOSITION: Home with [facility] Coordinators (CC). DISCHARGE DIAGNOSES: As follows: 1. Asthma exacerbation, mild. 2. Diabetes, mild. 3. Homeless, indigent. 4. Chest pain, low risk, likely musculoskeletal in nature with chest wall tenderness. 5. Seizure disorder, history of. DISCHARGE MEDICATIONS: As follows: 1. Tylenol 650 mg p.o. q.6 p.r.n. 2. Tessalon Perles 100 mg p.o. t.i.d. p.r.n. for cough. 3. Nicotine 2 mg gum p.o. q.2 p.r.n. 4. Nicotine inhaler 10 mg inhalation q.2 hours p.r.n. 5. Phenytoin 300 mg p.o. t.i.d. 6. Prednisone slow taper as prescribed. 7. Albuterol HFA inhaler 1 puff inhalation q.4 hours p.r.n. 8. Lexapro 20 mg p.o. daily. 9. Hydroxyzine 50 mg p.o. four times a day p.r.n. for anxiety. 10. Lamotrigine 150 mg p.o. b.i.d. 11. Lisinopril 20 mg p.o. daily. 12. Metformin 500 mg ER tab p.o. daily. HISTORY OF PRESENT ILLNESS/HOSPITAL COURSE: The patient is a 43-year-old gentleman with history of schizoaffective disorder as well as manic and bipolar and seizure disorder, who was recently discharged a few hours back on 03/05/19 to [facility]. Unfortunately, he was told by [facility] upon discharge that they were unable to find him housing and was therefore sent back to the bus stop to go to his pharmacy as a homeless person. He became very anxious and on his way to the bus stop to go to [place] [employer], he became wheezy and short of breath and EMS was called, who brought him back to the ED, who was found wheezing which subsequently resolved upon nebulization. He was admitted for mild asthma exacerbation as well as being homeless. He was seen in consultation by social workers on this re-admission. His asthma exacerbation quickly resolved and he was rapidly tapered off of prednisone and will be discharged to [facility]. He also was ruled out for ACS with troponins being negative at least x 3. Patient also noted to have chest wall tenderness on exam and found to have low pre-test probability and was not sent for stress test. The patient had been advised to follow up and/or call his PCP within 3 days post discharge. He was advised that if his symptoms resume or develop new ones or feel unwell for any reason, to call his PCP first. If his PCP cannot entertain him due to scheduling issues alone, he is to call [facility] if the issue is nonemergent. He was advised and informed that he is a newly diagnosed diabetic and he has been started on metformin due to his obesity as it can help in lose weight while it helps control his diabetes. He was advised to follow up with his PCP to further titrate and monitor his weight loss goal. He was advised to hydrate appropriately and drink when thirsty. He was advised to call my office regarding any questions, concerns, or further clarifications regarding his discharge plans and the prescriptions and to take his medications as prescribed. REVIEW OF SYSTEMS: The patient denied any current headaches, dizziness, fevers , chills, nausea, vomiting, chest pain, shortness of breath, increased cough and /or sputum production, abdominal pain, diarrhea, constipation, pain and/or increased frequency on urination, myalgias, arthralgias, throat pain or new skin lesions. The rest of the 14-point review of systems is otherwise unremarkable. PHYSICAL EXAMINATION: Shows the most recent vital signs of records with blood pressure of 142/81, 72 beats per minute heart rate, 20 per minute respiratory rate, saturating at 95% on room air. General Appearance: The patient is awake , alert and oriented x3, not in acute distress. Obese. HEENT: Normocephalic, atraumatic. PERRLA. Extraocular muscles are intact. Negative for icterus. Moist oral mucosa. Negative throat erythema. Neck is soft, supple, with no cervical lymphadenopathy. No JVD. Heart: S1 and S2 within normal limits. Regular rate and rhythm. No murmurs, rubs, or gallops. Chest: Clear to auscultation bilaterally. Good air entry. No wheezes, rales, or rhonchi. Abdomen: Soft, nondistended, nontender. Normoactive bowel sounds x4 quadrants. Extremities: No cyanosis, clubbing, or edema. Psychiatric: No active psychosis, depression, suicidal or homicidal ideations. Skin is warm to touch. TIME SPENT: The total time spent evaluating the patient, reviewing pertinent data, and appropriate documentation is 50 minutes. [id number]/CPS #: [id number] [id number]
== END 2019-03-10 13:15 | disposition home or self-care (01) | DRG 141 ==
LOC: ED 18:16 → MEDTELE 19:57 → OBSVTOIN 03-07 10:33 → UNDODISIN 03-08 11:27 → MED 03-08 17:40
PROVIDERS: ADMIT Student in an Organized Health Care Education/Training Program; ATTEND Student in an Organized Health Care Education/Training Program
DX: J45.901 Unspecified asthma with (acute) exacerbation (principal); Z68.41 Body mass index [BMI] 40.0-44.9, adult; I10 Essential (primary) hypertension; J44.9 Chronic obstructive pulmonary disease, unspecified; M17.0 Bilateral primary osteoarthritis of knee; 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, unspecified, not intractable, without status epilepticus; M46.90 Unspecified inflammatory spondylopathy, site unspecified; F17.210 Nicotine dependence, cigarettes, uncomplicated; E66.01 Morbid (severe) obesity due to excess calories; F41.9 Anxiety disorder, unspecified; R07.89 Other chest pain; F31.9 Bipolar disorder, unspecified; F25.9 Schizoaffective disorder, unspecified; F60.9 Personality disorder, unspecified; E11.9 Type 2 diabetes mellitus without complications; Z82.49 Family history of ischemic heart disease and other diseases of the circulatory system; Z88.0 Allergy status to penicillin; Z81.8 Family history of other mental and behavioral disorders; Z59.0 Homelessness; Z79.52 Long term (current) use of systemic steroids; Z79.84 Long term (current) use of oral hypoglycemic drugs
CPT/HCPCS: 36415; 36600; 71046; 80048; 80053; 80061; 83735; 84100; 84443; 84484; 85025; 85027; 99283; A9270-GY; G0378; J1650; J2930; J7512

== ENCOUNTER → 2019-03-21 14:16 | Emergency (ER) | payer MEDICAID ==
[~2019-03-21 14:16] MED LIST: NS 0.9% 1000 ML** 1,000 ML IV ONE; Ondansetron INJ* 2 MG/ML VIAL IV ONE
--- NOTE | 2019-03-21 14:43 | ED ---
Influenza-Like Illness - HPI Summary HPI Summary: Pt is a 43 y/o M presenting to ED c/o n/v ongoing this week. Associated sx: sore throat, bilateral ear pain, near-syncope. He was seated and at rest when the near-syncope occurred. Denies PEREZ, CP, SOB, diarrhea, constipation. PMHx: HTN , DM, sz. He takes Dilantin daily. Denies previous surgeries. Smoker. No ETOH. No drugs. Pt has was admitted to ED on 03/01 and released on 03/05; and again on 03/07 and released on 03/10. - History of Current Complaint Chief Complaint: EDFluSymptoms Time Seen by Provider: 03/21/19 14:34 Hx Obtained From: Patient Onset/Duration: Gradual Onset, Lasting Weeks - one present, Still Present Severity: Moderate Associated Signs & Symptoms: Sore Throat, Headache Related Hx: Smoking - Allergy/Home Medications Allergies/Adverse Reactions: Allergies Allergy/AdvReac Type Severity Reaction Status Date / Time Penicillins Allergy Vomiting Verified 02/25/19 10:42 PMH/Surg Hx/FS Hx/Imm Hx Previously Healthy: No Endocrine/Hematology History: Reports: Hx Diabetes Cardiovascular History: Reports: Hx Hypertension Respiratory History: Reports: Hx Asthma, Hx Chronic Obstructive Pulmonary Disease (COPD) Sensory History: Denies: Hx Contacts or Glasses, Hx Hearing Aid Opthamlomology History: Denies: Hx Contacts or Glasses Neurological History: Reports: Hx Seizures Psychiatric History: Reports: Hx Schizophrenia, Hx Bipolar Disorder - Cancer History Cancer Type, Location and Year: seizures arthritis knees and back Infectious Disease History: No Infectious Disease History: Denies: Traveled Outside the [place] in Last 30 Days - Family History Known Family History: Positive: Hypertension - Father Negative: Cardiac Disease, Diabetes - Social History Occupation: Disabled Lives: Alone Alcohol Use: None Hx Substance Use: No Substance Use Type: Reports: None Hx Tobacco Use: Yes Smoking Status (MU): Heavy Every Day Tobacco Smoker Type: Cigarettes Amount Used/How Often: 1 pack /day Have You Smoked in the Last Year: Yes Review of Systems Positive: Sore Throat, Ear Ache - bilat, Other - pos: bilat ear pain Negative: Chest Pain Negative: Shortness Of Breath Positive: Vomiting, Nausea. Negative: Diarrhea, Other - neg: constipation Positive: Syncope - near-syncope. Negative: Headache All Other Systems Reviewed And Are Negative: Yes Physical Exam - Summary Physical Exam Summary: VITAL SIGNS: Reviewed. GENERAL: Patient is a well-developed and obese MALE who is lying comfortable in the stretcher. Patient is not in any acute respiratory distress. HEAD AND FACE: No signs of trauma. No ecchymosis, hematomas or skull depressions. No sinus tenderness. EYES: PERRLA, EOMI x 2, No injected conjunctiva, no nystagmus. EARS: Hearing grossly intact. Ear canals and tympanic membranes are within normal limits. MOUTH: Pharyngeal erythema NECK: Supple, trachea is midline, no adenopathy, no JVD, no carotid bruit, no c- spine tenderness, neck with full ROM. CHEST: Symmetric, no tenderness at palpation LUNGS: Clear to auscultation bilaterally. No wheezing or crackles. CVS: Regular rate and rhythm, S1 and S2 present, no murmurs or gallops appreciated. ABDOMEN: Soft, non-tender. No signs of distention. No rebound, no guarding, and no masses palpated. Bowel sounds are normal. EXTREMITIES: FROM in all major joints, no edema, no cyanosis or clubbing. NEURO: Alert and oriented x 3. No acute neurological deficits. Speech is normal and follows commands. SKIN: Dry and warm Triage Information Reviewed: Yes Vital Signs On Initial Exam: Initial Vitals Temp Pulse Resp BP Pulse Ox 98.0 F 86 18 108/72 92 03/21/19 14:25 03/21/19 14:25 03/21/19 14:25 03/21/19 14:25 03/21/19 14:25 Vital Signs Reviewed: Yes Diagnostics - Vital Signs Vital Signs Temp Pulse Resp BP Pulse Ox 03/21/19 14:32 83 94 03/21/19 14:25 98.0 F 86 18 108/72 92 - Laboratory Result Diagrams: 03/21/19 14:53 03/21/19 14:53 Lab Statement: Any lab studies that have been ordered have been reviewed, and results considered in the medical decision making process. Flu Symptom Course/Dx - Course Assessment/Plan: Patient is a 44-year-old male who presents to the emergency room with a chief complaint of having the flu and sore throat. Test results are without any significant abnormality. Urinalysis is negative for UTI. Influenza A and B is negative, group A strep is negative. I believe that the patient has an upper respiratory tract infection, therefore he will be discharged home with follow-up with PCP. I discussed all the findings and test results with the patient. Patient was instructed to return to the emergency room immediately if any of the symptoms return worsens. Plan of care was discussed with the patient and understands and agrees. All questions were answered at patient satisfaction. There were no further complaints or concerns. Lung exam before discharge: CTA B/L. Good air exchange. No wheezing or crackles heard. CVS: S1 and S2 present. No murmurs appreciated. Patient is alert and oriented x 3. Patient is hemodynamically stable. Patient will be discharged home with follow up PCP in the next 2-3 days - Diagnoses Provider Diagnoses: Upper respiratory tract infection Discharge - Sign-Out/Discharge Documenting (check all that apply): Patient Departure - D/C Patient Received Moderate/Deep Sedation with Procedure: No - Discharge Plan Condition: Stable Disposition: HOME Patient Education Materials: Upper Respiratory Infection (ED) Referrals: Maricarmen Sewell DO [Primary Care Provider] - 3 Days Additional Instructions: FOLLOW UP WITH YOUR PRIMARY CARE PROVIDER WITHIN 3 DAYS. RETURN TO THE ED FOR ANY WORSENING OR NEW SYMPTOMS. - Billing Disposition and Condition Condition: STABLE Disposition: Home - Attestation Statements Document Initiated by Scribe: Yes Documenting Scribe: Binta Healy Provider For Whom Ekta is Documenting (Include Credential): Dr. Valentín Angeles MD Scribe Attestation: I, Binta Healy, scribed for Dr. Valentín Angeles MD on 03/21/19 at 1841. Scribe Documentation Reviewed: Yes Provider Attestation: The documentation as recorded by the Binta montano accurately reflects the service I personally performed and the decisions made by me, Dr. Valentín Angeles MD Status of Scribe Document: Viewed
[2019-03-21 15:00] LABS: ABS Eosinophils 0.4 10^3/ul (0-0.6); ABS Lymphocytes 2.4 10^3/ul (1.0-4.8); ABS Monocytes 0.8 10^3/ul (0-0.8); ABS Neutrophils 7.2 10^3/ul (1.5-7.7); Eosinophil % 3.5 %; Hematocrit 45 % (42-52); Hemoglobin 15.2 g/dL (14.0-18.0); Lymphocyte % 21.8 %; Mean Corpuscular HGB Conc 34 g/dL (31-36); Mean Corpuscular Hemoglobin 30 pg (27-31); Mean Corpuscular Volume 89 fL (80-94); Nucleated Red Blood Cells % 0.1; Platelet Count 318 10^3/uL (150-450); Red Blood Count 5.03 10^6 /uL (4.18-5.48); Red Cell Distribution Width 13 % (10.5-15); White Blood Count 10.8 10^3/uL (3.5-10.8)
[2019-03-21 15:17] LABS: Albumin/Globulin Ratio 1.2 (1-3); BUN/Creatinine Ratio 18.2 (8-20); Calcium 9.3 mg/dL (8.6-10.3); EGFR African American 134.1 (>60); EGFR Non-African American 110.8 (>60); Globulin 3.3 g/dL (2-4); Potassium 4.1 mmol/L (3.5-5.0); Total Bilirubin 0.4 mg/dL (0.2-1.0); Total Protein 7.3 g/dL (6.4-8.9)
[2019-03-21 15:44] LABS: TSH (Thyroid Stimulating Horm) 2.76 mcIU/mL (0.34-5.60)
[2019-03-21 16:14] LABS: Rapid Strep Molecular Negative (Negative)
[2019-03-21 16:20] LABS: Urine Appearance Cloudy; Urine Bilirubin Negative (Negative); Urine Blood Negative (Negative); Urine Color Amber; Urine Glucose Negative (Negative); Urine Ketones Negative (Negative); Urine Nitrite Negative (Negative); Urine Protein Negative (Negative); Urine Specific Gravity 1.028 (1.010-1.030); Urine Urobilinogen Negative (Negative)
[2019-03-21 16:23] LABS: Influenza A Molecular NEGATIVE (Negative); Influenza B Molecular NEGATIVE (Negative)
[2019-03-21 16:28] LABS: Urine Benzodiazepine Screen None Detected (None Detect); Urine Opiates Screen None Detected (None Detect)
[2019-03-21 16:49] VITALS: BP 124/71
== END | disposition home or self-care (01) ==
LOC: ED 14:16
DX: J06.9 Acute upper respiratory infection, unspecified (principal); I10 Essential (primary) hypertension; E11.9 Type 2 diabetes mellitus without complications; J44.9 Chronic obstructive pulmonary disease, unspecified; R56.9 Unspecified convulsions; F20.9 Schizophrenia, unspecified; F31.9 Bipolar disorder, unspecified; F17.210 Nicotine dependence, cigarettes, uncomplicated; Z88.0 Allergy status to penicillin
CPT/HCPCS: 36415; 80053; 80307; 81003; 82550; 83605; 83880; 84443; 85025; 87651; 96361; 96374; 99282; J2405

== ENCOUNTER 2019-03-24 21:48 | Emergency (ER) | payer MEDICAID ==
[2019-03-24] MEDS ORDERED: Albuterol 2.5 MG/3 ML NEB.SOL* (0.083%) INH ONE (22:17)
[2019-03-24] MEDS ORDERED: Albuterol/Ipratropium NEB.SOL* Albuterol 2.5 MG/Ipratropium 0.5 MG 3 ML INH ONE (22:17)
--- NOTE | 2019-03-24 23:12 | ED ---
Respiratory - HPI Summary HPI Summary: The patient is a 43 year old male who is presenting to the [facility] via EMS with a chief complaint of SOB. Patient was brought in ALS as per triage reports from [facility]. He states that he was unable to breath at 2030 while he was walking back from the grocery store. Breathing rates have improved since onset as per patient report. Similar symptoms have occurred on Sunday (03/21/19) in which he was seen in the [facility] for. Patient states that he was dx with a respiratory infection, but did not receive an medication. SHx includes Tobacco use. Other symptom reports include coughing, and diaphoresis. He denies N/V/D and chest pain. Symptoms are aggravated by nothing. Symptoms are alleviated by nothing. Pain is rated to be 6/10 in severity. - History of Current Complaint Chief Complaint: EDShortnessOfBreath Stated Complaint: SOB PER EMS Time Seen by Provider: 03/24/19 22:06 Hx Obtained From: Patient, EMS Onset/Duration: Sudden Onset Initial Severity: Moderate Current Severity: Moderate Pain Intensity: 6 Sputum Amount: None Aggravating Factor(s): Nothing Alleviating Factor(s): Nothing Associated Signs and Symptoms: SOB, Diaphoresis - Allergy/Home Medications Allergies/Adverse Reactions: Allergies Allergy/AdvReac Type Severity Reaction Status Date / Time Penicillins Allergy Vomiting Verified 02/25/19 10:42 PMH/Surg Hx/FS Hx/Imm Hx Endocrine/Hematology History: Reports: Hx Diabetes Cardiovascular History: Reports: Hx Hypertension Respiratory History: Reports: Hx Asthma, Hx Chronic Obstructive Pulmonary Disease (COPD) Sensory History: Denies: Hx Contacts or Glasses, Hx Hearing Aid Opthamlomology History: Denies: Hx Contacts or Glasses Neurological History: Reports: Hx Seizures Psychiatric History: Reports: Hx Schizophrenia, Hx Bipolar Disorder - Cancer History Cancer Type, Location and Year: seizures arthritis knees and back Infectious Disease History: No Infectious Disease History: Denies: Traveled Outside the [place] in Last 30 Days - Family History Known Family History: Positive: Hypertension - Father Negative: Cardiac Disease, Diabetes - Social History Alcohol Use: None Hx Substance Use: No Substance Use Type: Reports: None Hx Tobacco Use: Yes Smoking Status (MU): Heavy Every Day Tobacco Smoker Type: Cigarettes Amount Used/How Often: 1 pack /day Have You Smoked in the Last Year: Yes Review of Systems Positive: Skin Diaphoresis Eyes: Negative ENT: Negative Negative: Chest Pain Positive: Shortness Of Breath - "inability to breath", Cough Negative: Vomiting, Diarrhea, Nausea Genitourinary: Negative Musculoskeletal: Negative Skin: Negative Neurological: Negative Psychological: Normal All Other Systems Reviewed And Are Negative: Yes Physical Exam - Summary Physical Exam Summary: VITAL SIGNS: Reviewed. GENERAL: Patient is a morbidly obese (MALE) who is lying comfortable in the stretcher. Patient is not in any acute respiratory distress. HEAD AND FACE: No signs of trauma. No ecchymosis, hematomas or skull depressions. No sinus tenderness. EYES: PERRLA, EOMI x 2, No injected conjunctiva, no nystagmus. EARS: Hearing grossly intact. Ear canals and tympanic membranes are within normal limits. MOUTH: Oropharynx within normal limits. NECK: Supple, trachea is midline, no adenopathy, no JVD, no carotid bruit, no c- spine tenderness, neck with full ROM CHEST: Symmetric, no tenderness at palpation LUNGS: Clear to auscultation bilaterally. No wheezing or crackles. CVS: Regular rate and rhythm, S1 and S2 present, no murmurs or gallops appreciated. ABDOMEN: Soft, non-tender. No signs of distention. No rebound no guarding, and no masses palpated. Bowel sounds are normal. EXTREMITIES: FROM in all major joints, no edema, no cyanosis or clubbing. NEURO: Alert and oriented x 3. No acute neurological deficits. Speech is normal and follows commands. SKIN: Dry and warm Triage Information Reviewed: Yes Vital Signs On Initial Exam: Initial Vitals Temp Pulse Resp BP Pulse Ox 98.5 F 92 15 141/83 94 03/24/19 21:52 03/24/19 21:52 03/24/19 21:52 03/24/19 21:52 03/24/19 21:52 Vital Signs Reviewed: Yes Diagnostics - Vital Signs Vital Signs Temp Pulse Resp BP Pulse Ox 03/24/19 22:55 96 14 99 03/24/19 21:52 98.5 F 92 15 141/83 94 - Laboratory Lab Statement: Any lab studies that have been ordered have been reviewed, and results considered in the medical decision making process. - Radiology Chest X-ray Radiology Interpretation Completed By: ED Physician Summary of Radiographic Findings: The CXR reveals as per ED Physician negative findings. Disposition - Course Course Of Treatment: The patient is a 43 y/o male who is presenting to the [facility] with a chief complaint of SOB. The patient reports an inablity to breath as he was walking home from the grocery store at 2030. Other reports of symptoms includes coughing and diaphoresis. Physical exam shows no remarkable findings. He was seen in the [facility] on Sunday (03/21/19) and was dx with a respiratory infection. CXR reveals negative findings as per ED Physician. The patient's breathing has improved during his time in the [facility] after receiving 1 duoneb and 1 albuterol. Physical Exam after treatment reveals bilateral breath sounds, O2 stat in room air is 99%, and no wheezes. He will be discharged home with a dx of asthma. Patient is agreeable with this plan. - Diagnoses Provider Diagnoses: Asthma Discharge - Sign-Out/Discharge Documenting (check all that apply): Patient Departure - DISCHARGE HOME Patient Received Moderate/Deep Sedation with Procedure: No - Discharge Plan Condition: Stable Disposition: HOME Referrals: Maricarmen Sewell DO [Primary Care Provider] - - Attestation Statements Document Initiated by Scribe: Yes Documenting Scribe: Jcarlos Da Silva Provider For Whom Scribe is Documenting (Include Credential): Dr. Sonya Brooksibpamela Attestation: Jcarlos Scott scribed for Dr. Gianna Barajas on 03/24/19 at 2322. Status of Scribe Document: Ready
[2019-03-24] MEDS ORDERED: Albuterol HFA INHALER* 8 gm MDI INH SCH (23:45)
[2019-03-24 23:58] VITALS: BP 155/91
== END 2019-03-24 23:27 | disposition home or self-care (01) ==
LOC: ED 21:48
DX: J44.1 Chronic obstructive pulmonary disease with (acute) exacerbation (principal); I10 Essential (primary) hypertension; E11.9 Type 2 diabetes mellitus without complications; F20.9 Schizophrenia, unspecified; F31.9 Bipolar disorder, unspecified; F17.210 Nicotine dependence, cigarettes, uncomplicated; Z88.0 Allergy status to penicillin
CPT/HCPCS: 71045; 99283; A9270-GY

== ENCOUNTER 2019-04-13 13:49 | Emergency (ER) | payer MEDICAID ==
[2019-04-13 14:03] VITALS: BP 131/83
[2019-04-13] MEDS ORDERED: NS 0.9% 1000 ML** 1,000 ML IV ONE (14:03)
[2019-04-13] MEDS ORDERED: Meclizine TAB* 12.5 MG PO ONE (14:03)
--- NOTE | 2019-04-13 14:21 | ED ---
Dizziness - HPI Summary HPI Summary: A 43 y/o male brought in by [facility] ambulance presents to [facility] with a chief complaint of dizziness today. He reports that he was walking when he felt overheated, dizzy and lightheaded. He denies any CP, SOB, N/V. He denies any current pain. - History Of Current Complaint Chief Complaint: EDDizziness Stated Complaint: DIZZINESS PER EMS Time Seen by Provider: 04/13/19 14:02 Hx Obtained From: Patient, EMS Onset/Duration: Still Present Timing: Constant Severity Initially: Mild Severity Currently: Mild Character: Dizzy Aggravating Factor(s): Nothing Alleviating Factor(s): Nothing Associated Signs And Symptoms: Negative: Nausea, Vomiting, Chest Pain, SOB, Fever - Allergies/Home Medications Allergies/Adverse Reactions: Allergies Allergy/AdvReac Type Severity Reaction Status Date / Time Penicillins Allergy Vomiting Verified 04/13/19 14:02 Home Medications: Home Medications Benzonatate CAP* [Tessalon 100 MG CAP*] 100 mg PO TID PRN 04/13/19 [History Confirmed 04/13/19] amLODIPine TAB* [Norvasc 5 mg TAB*] 5 mg PO DAILY 04/13/19 [History Confirmed ] hydrOXYzine HCL TAB* [Atarax TAB 50 MG *] 50 mg PO TID PRN 04/13/19 [History Confirmed 04/13/19] PMH/Surg Hx/FS Hx/Imm Hx Endocrine/Hematology History: Reports: Hx Diabetes Cardiovascular History: Reports: Hx Hypertension Respiratory History: Reports: Hx Asthma, Hx Chronic Obstructive Pulmonary Disease (COPD) Sensory History: Denies: Hx Contacts or Glasses, Hx Hearing Aid Opthamlomology History: Denies: Hx Contacts or Glasses Neurological History: Reports: Hx Seizures Psychiatric History: Reports: Hx Schizophrenia, Hx Bipolar Disorder - Cancer History Cancer Type, Location and Year: seizures arthritis knees and back Infectious Disease History: No Infectious Disease History: Denies: Traveled Outside the [place] in Last 30 Days - Family History Known Family History: Positive: Hypertension - Father Negative: Cardiac Disease, Diabetes - Social History Alcohol Use: None Hx Substance Use: No Substance Use Type: Reports: None Hx Tobacco Use: Yes Smoking Status (MU): Heavy Every Day Tobacco Smoker Type: Cigarettes Amount Used/How Often: 1 pack /day Have You Smoked in the Last Year: Yes Review of Systems Negative: Fever Negative: Chest Pain Negative: Shortness Of Breath Negative: Vomiting, Nausea Neurological: Other - positive: dizziness, lightheadedness All Other Systems Reviewed And Are Negative: Yes Physical Exam - Summary Physical Exam Summary: VITAL SIGNS: Reviewed. GENERAL: Patient is an obese MALE who is lying comfortable in the stretcher. Patient is not in any acute respiratory distress. HEAD AND FACE: No signs of trauma. No ecchymosis, hematomas or skull depressions. No sinus tenderness. EYES: PERRLA, EOMI x 2, No injected conjunctiva, no nystagmus. EARS: Hearing grossly intact. Ear canals and tympanic membranes are within normal limits. MOUTH: Oropharynx within normal limits. NECK: Supple, trachea is midline, no adenopathy, no JVD, no carotid bruit, no c- spine tenderness, neck with full ROM. CHEST: Symmetric, no tenderness at palpation LUNGS: Clear to auscultation bilaterally. No wheezing or crackles. CVS: Regular rate and rhythm, S1 and S2 present, no murmurs or gallops appreciated. ABDOMEN: Soft, non-tender. No signs of distention. No rebound no guarding, and no masses palpated. Bowel sounds are normal. EXTREMITIES: FROM in all major joints, no edema, no cyanosis or clubbing. NEURO: Alert and oriented x 3. No acute neurological deficits. Speech is normal and follows commands. SKIN: Dry and warm. Triage Information Reviewed: Yes Vital Signs On Initial Exam: Initial Vitals Temp Pulse Resp BP Pulse Ox 97.3 F 90 16 131/83 92 04/13/19 13:59 04/13/19 13:59 04/13/19 13:59 04/13/19 13:59 04/13/19 13:59 Vital Signs Reviewed: Yes - [place] Coma Scale Best Eye Response: 4 - Spontaneous Best Motor Response: 6 - Obeys Commands Best Verbal Response: 5 - Oriented Coma Scale Total: 15 Diagnostics - Vital Signs Vital Signs Temp Pulse Resp BP Pulse Ox 04/13/19 13:59 97.3 F 90 16 131/83 92 - Laboratory Result Diagrams: 04/13/19 14:22 04/13/19 14:22 Lab Statement: Any lab studies that have been ordered have been reviewed, and results considered in the medical decision making process. - Radiology CXR Radiology Interpretation Completed By: Radiologist Summary of Radiographic Findings: No evidence for acute intrathoracic disease. ED physician has reviewed this imaging report. - CT Brain CT Interpretation Completed By: Radiologist Summary of CT Findings: Negative unenhanced head CT. ED physician has reviewed this imaging report. - EKG 14:38 Cardiac Rate: NL - 77 bpm EKG Rhythm: Sinus Rhythm Summary of EKG Findings: NSR at [address] elevations, similar to previous EKG done 03/01/19. Dizzy Course/Dx - Course Assessment/Plan: A 43 y/o male brought in by [facility] ambulance presents to [facility] with a chief complaint of dizziness today. He reports that he was walking when he felt overheated, dizzy and lightheaded. He denies any CP, SOB, N/V. He denies any current pain. In the ED course the patient reports that he is asymptomatic. Test results without any significant abnormality except for glucose of 166, troponin 0.04, CRP is 26.2. Chest x-ray impression: No evidence for acute intrathoracic disease. .head CT impression: Negative for acute intracranial pathology. Before I obtain therefore workup the patient reports that he wants to leave and he wants signed AGAINST MEDICAL ADVICE. I extensively discussed with the patient the benefits and risk of leaving AMA. I also discussed the alternatives to leaving AMA, however, the patient still insist to leave the hospital AMA. The patient is clinically sober, free from distracting injury, appears to have intact insight and judgment and reason and in my opinion has the capacity to make decisions. Patient has full capacity and is cognitively intact. The patient presents with Dizziness, I have explained that I am concerned with near syncope, increased troponin and may represent ACS , [place] or . The patient verbalizes the understanding of my concerns. I have also explained the results of the labs and even though they are abnormal. The primary nurse and the charge nurse also strongly recommended that the patient should not leave AMA. Patient understands the risk of leaving AMA, which includes but is not restricted to . Patient signed the AMA form. Patient was also advised to return to ED if he changes his mind or if the symptoms worsen or other symptoms appear. Patient understands and agrees. Again, I discussed all the findings and test results with the patient. Patient was instructed to return to the emergency room immediately if any of the symptoms return or worsens. Plan of care was discussed with the patient and understands and agrees. All questions were answered at patient satisfaction. There were no further complaints or concerns. Patient signed AMA and he was discharged AMA. - Diagnoses Provider Diagnoses: Near syncope, Elevated troponin Discharge - Sign-Out/Discharge Documenting (check all that apply): Patient Departure - AMA Patient Received Moderate/Deep Sedation with Procedure: No - Discharge Plan Condition: Fair Disposition: AGAINST MEDICAL ADVICE Referrals: Maricarmen Sewell DO [Primary Care Provider] - - Billing Disposition and Condition Condition: FAIR Disposition: Against Medical Advice - Attestation Statements Document Initiated by Scribe: Yes Documenting Scribe: Rodo Knox Provider For Whom Scribe is Documenting (Include Credential): Valentín Angeles MD Scribe Attestation: Rodo Scott, scribed for Valentín Angeles MD on 04/14/19 at 0815. Scribe Documentation Reviewed: Yes Provider Attestation: The documentation as recorded by the Rodo montano accurately reflects the service I personally performed and the decisions made by Valentín english MD Status of Scribe Document: Viewed
[2019-04-13 14:29] LABS: ABS Basophils 0.1 10^3/ul (0-0.2); ABS Eosinophils 0.4 10^3/ul (0-0.6); ABS Lymphocytes 2.2 10^3/ul (1.0-4.8); ABS Monocytes 0.7 10^3/ul (0-0.8); ABS Neutrophils 6.9 10^3/ul (1.5-7.7); Eosinophil % 4.1 %; Hematocrit 45 % (42-52); Hemoglobin 15.3 g/dL (14.0-18.0); Lymphocyte % 21.7 %; Mean Corpuscular HGB Conc 34 g/dL (31-36); Mean Corpuscular Hemoglobin 30 pg (27-31); Mean Corpuscular Volume 89 fL (80-94); Mean Platelet Volume 7.4 fL (7.4-10.4); Nucleated Red Blood Cells % 0.1; Platelet Count 334 10^3/uL (150-450); Red Blood Count 5.13 10^6 /uL (4.18-5.48); Red Cell Distribution Width 14 % (10.5-15); White Blood Count 10.3 10^3/uL (3.5-10.8)
[2019-04-13 14:47] LABS: ALT 17 U/L (7-52); AST 34 U/L (13-39); Albumin/Globulin Ratio 1.3 (1-3); Alkaline Phosphatase 104 U/L (34-104); Anion Gap 6 mmol/L (2-11); BUN/Creatinine Ratio 9.5 (8-20); Blood Urea Nitrogen 7 mg/dL (6-24); C Reactive Protein 26.22 mg/L (<8.01); CO2 Carbon Dioxide 27 mmol/L (22-32); Calcium 9.4 mg/dL (8.6-10.3); Chloride 103 mmol/L (101-111); Creatine Kinase 42 U/L (10-223); EGFR African American 140.3 (>60); Globulin 3.2 g/dL (2-4); Glucose 166 mg/dL (70-100); Magnesium 1.9 mg/dL (1.9-2.7); Potassium 3.8 mmol/L (3.5-5.0); Sodium 136 mmol/L (135-145); Total Protein 7.2 g/dL (6.4-8.9)
[2019-04-13 14:53] LABS: Alcohol < 10 mg/dL (<10)
[2019-04-13 14:57] LABS: Troponin I 0.04 ng/mL (<0.04)
[2019-04-13 15:08] LABS: TSH (Thyroid Stimulating Horm) 2.26 mcIU/mL (0.34-5.60)
== END 2019-04-13 15:15 | disposition left against medical advice (07) ==
LOC: ED 13:49
DX: R55 Syncope and collapse (principal); R79.89 Other specified abnormal findings of blood chemistry; E11.9 Type 2 diabetes mellitus without complications; I10 Essential (primary) hypertension; J44.9 Chronic obstructive pulmonary disease, unspecified; Z88.0 Allergy status to penicillin; F17.210 Nicotine dependence, cigarettes, uncomplicated
CPT/HCPCS: 36415; 70450; 71046; 80053; 80320; 82550; 83605; 83735; 83880; 84443; 84484; 85025; 86140; 93005; 99283; A9270-GY; G0480

== ENCOUNTER 2019-04-26 22:10 | Emergency (ER) | payer MEDICAID ==
[2019-04-26] MEDS ORDERED: Phenytoin CAP(*) 100 MG CAP.ER PO ONE (22:20)
--- NOTE | 2019-04-26 22:20 | ED ---
Psychiatric Complaint - HPI Summary HPI Summary: This patient is a 43 year old male brought in by EMS presenting to [facility] with a chief complaint of psychosis since 20 minutes ago. The patient states he started hearing voices 15-20 minutes ago. He says the voices told him to slit his wrist. He says this episode was likely induced by stress because he is trying to find a place to live with his and son. He states he hears voices all the time. He has a Hx of bipolar, schizophrenia, and multiple personality disorder. The patient states he has run out of his epilepsy medication one week ago. - History Of Current Complaint Time Seen by Provider: 04/26/19 22:13 Hx Obtained From: Patient Onset/Duration: Sudden Onset, Lasting Minutes Aggravating Factor(s): Recent Stress Associated Signs And Symptoms: Positive: Hallucinating Related History: Positive For: Prior Psychiatric Issues - Allergies/Home Medications Allergies/Adverse Reactions: Allergies Allergy/AdvReac Type Severity Reaction Status Date / Time Penicillins Allergy Vomiting Verified 04/13/19 14:02 PMH/Surg Hx/FS Hx/Imm Hx Endocrine/Hematology History: Reports: Hx Diabetes Cardiovascular History: Reports: Hx Hypertension Respiratory History: Reports: Hx Asthma, Hx Chronic Obstructive Pulmonary Disease (COPD) Sensory History: Denies: Hx Contacts or Glasses, Hx Hearing Aid Opthamlomology History: Denies: Hx Contacts or Glasses Neurological History: Reports: Hx Seizures Psychiatric History: Reports: Hx Schizophrenia, Hx Bipolar Disorder - Cancer History Cancer Type, Location and Year: seizures arthritis knees and back - Family History Known Family History: Positive: Hypertension - Father Negative: Cardiac Disease, Diabetes - Social History Alcohol Use: None Hx Substance Use: No Substance Use Type: Reports: None Hx Tobacco Use: Yes Smoking Status (MU): Heavy Every Day Tobacco Smoker Type: Cigarettes Amount Used/How Often: 1 pack /day Have You Smoked in the Last Year: Yes Review of Systems Negative: Fever Psychological: Other - Hallucinations All Other Systems Reviewed And Are Negative: Yes Physical Exam - Summary Physical Exam Summary: Appearance: well appearing, obese, no pain distress Skin: warm, dry, reflects adequate perfusion. Very superficial abrasions on left wrist. Head/face: normal Eyes: EOMI, PERRL ENT: mucous membranes moist Neck: supple, non-tender Respiratory: CTA, breath sounds present Cardiovascular: RRR, pulses symmetrical Abdomen: non-tender, soft Bowel Sounds: present Musculoskeletal: normal, strength/ROM intact Neuro: normal, sensory motor intact, A&Ox3 Psych: Flat affect, withdrawn. Triage Information Reviewed: Yes Vital Signs On Initial Exam: Temp Pulse Resp BP Pulse Ox 98.5 F 90 20 123/86 95 04/26/19 22:20 04/26/19 22:20 04/26/19 22:20 04/26/19 22:20 04/26/19 22:20 Vital Signs Reviewed: Yes Diagnostics - Laboratory Result Diagrams: 04/26/19 22:54 04/26/19 22:54 Lab Statement: Any lab studies that have been ordered have been reviewed, and results considered in the medical decision making process. - EKG 2233 Cardiac Rate: NL EKG Rhythm: Sinus Rhythm - 91 BPM Summary of EKG Findings: Normal axis, poor R-wave progression, normal ST. Course/Dx - Course Course Of Treatment: Nurses' notes reviewed. Patient with superficial abrasions only. Tetanus is up-to-date. Medically cleared for psychiatric evaluation. [facility] performed crisis evaluation in the patient was cleared for discharge home by the psychiatrist. - Differential Dx/Clinical Impression Provider Diagnosis: Schizoaffective disorder, Abrasion of left forearm Discharge - Sign-Out/Discharge Documenting (check all that apply): Patient Departure - Discharge, per Dr. Skaggs Psychiatry. Patient Received Moderate/Deep Sedation with Procedure: No - Discharge Plan Condition: Improved Disposition: HOME Referrals: [facility] [Outside] - As Soon As Possible (Keep your appointment with Aiden and with the psychiatrist.) Maricarmen Sewell, [Primary Care Provider] - - Billing Disposition and Condition Condition: IMPROVED Disposition: Home - Attestation Statements Document Initiated by Scribe: Yes Documenting Scribe: Frederick Dickinson Provider For Whom Ekta is Documenting (Include Credential): Flaquito Fajardo MD Scribe Attestation: Frederick Scott, scribed for Flaquito Fajardo MD on 04/27/19 at 0233. Scribe Documentation Reviewed: Yes Provider Attestation: The documentation as recorded by the Frederick montano accurately reflects the service I personally performed and the decisions made by me, Flaquito Fajardo MD Status of Scribe Document: Viewed
[2019-04-26 23:03] LABS: ABS Basophils 0.1 10^3/ul (0-0.2); ABS Eosinophils 0.4 10^3/ul (0-0.6); ABS Lymphocytes 1.9 10^3/ul (1.0-4.8); ABS Monocytes 0.9 10^3/ul (0-0.8); ABS Neutrophils 5.5 10^3/ul (1.5-7.7); Hematocrit 44 % (42-52); Hemoglobin 15.3 g/dL (14.0-18.0); Lymphocyte % 21.2 %; Mean Corpuscular HGB Conc 34 g/dL (31-36); Mean Corpuscular Hemoglobin 30 pg (27-31); Mean Corpuscular Volume 88 fL (80-94); Mean Platelet Volume 7.7 fL (7.4-10.4); Nucleated Red Blood Cells % 0.2; Platelet Count 274 10^3/uL (150-450); Red Blood Count 5.05 10^6 /uL (4.18-5.48); Red Cell Distribution Width 13 % (10-15); White Blood Count 8.8 10^3/uL (3.5-10.8)
[2019-04-26 23:22] LABS: Anion Gap 8 mmol/L (2-11); CO2 Carbon Dioxide 30 mmol/L (22-32); Calcium 9.6 mg/dL (8.6-10.3); Chloride 102 mmol/L (101-111); Potassium 4.1 mmol/L (3.5-5.0); Sodium 140 mmol/L (135-145)
[2019-04-26 23:27] LABS: Acetaminophen < 15 mcg/mL; Alcohol < 10 mg/dL (<10); Phenytoin < 2.5 mcg/mL (10-20); Salicylate < 2.50 mg/dL (<30)
[2019-04-26 23:28] LABS: ALT 20 U/L (7-52); AST 38 U/L (13-39); Albumin/Globulin Ratio 1.6 (1-3); Alkaline Phosphatase 115 U/L (34-104); BUN/Creatinine Ratio 13.2 (8-20); Blood Urea Nitrogen 10 mg/dL (6-24); EGFR African American 136.1 (>60); EGFR Non-African American 112.5 (>60); Globulin 2.5 g/dL (2-4); Glucose 114 mg/dL (70-100); Total Protein 6.5 g/dL (6.4-8.9)
[2019-04-26 23:59] LABS: TSH (Thyroid Stimulating Horm) 2.07 mcIU/mL (0.34-5.60)
[2019-04-27 01:08] VITALS: BP 124/85
== END 2019-04-27 01:08 | disposition home or self-care (01) ==
LOC: ED 22:10
DX: S50.812A Abrasion of left forearm, initial encounter (principal); F25.9 Schizoaffective disorder, unspecified; F29 Unspecified psychosis not due to a substance or known physiological condition; R44.3 Hallucinations, unspecified; E11.9 Type 2 diabetes mellitus without complications; I10 Essential (primary) hypertension; F17.210 Nicotine dependence, cigarettes, uncomplicated; X58.XXXA Exposure to other specified factors, initial encounter; Y92.9 Unspecified place or not applicable
CPT/HCPCS: 36415; 80053; 80185; 80320; 80329; 84443; 85025; 93005; 99284; A9270-GY; G0480

== ENCOUNTER 2019-04-29 22:20 | Emergency (ER) | payer MEDICAID ==
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
[2019-04-29 22:57] LABS: ABS Eosinophils 0.3 10^3/ul (0-0.6); ABS Lymphocytes 2.2 10^3/ul (1.0-4.8); ABS Neutrophils 6.9 10^3/ul (1.5-7.7); Eosinophil % 3.1 %; Hematocrit 44 % (42-52); Hemoglobin 14.9 g/dL (14.0-18.0); Lymphocyte % 20.9 %; Mean Corpuscular HGB Conc 34 g/dL (31-36); Mean Corpuscular Hemoglobin 30 pg (27-31); Mean Corpuscular Volume 88 fL (80-94); Mean Platelet Volume 7.7 fL (7.4-10.4); Platelet Count 255 10^3/uL (150-450); Red Blood Count 4.94 10^6 /uL (4.18-5.48); Red Cell Distribution Width 13 % (10-15); White Blood Count 10.4 10^3/uL (3.5-10.8)
[2019-04-29 23:05] LABS: INR 1.09 (0.82-1.09)
[2019-04-29 23:16] LABS: Albumin 3.8 g/dL (3.2-5.2); Albumin/Globulin Ratio 1.2 (1-3); Calcium 9.2 mg/dL (8.6-10.3); EGFR Non-African American 97.5 (>60); Globulin 3.3 g/dL (2-4); Magnesium 1.9 mg/dL (1.9-2.7); Total Bilirubin 0.3 mg/dL (0.2-1.0); Total Protein 7.1 g/dL (6.4-8.9)
[2019-04-29 23:18] LABS: Troponin I 0.03 ng/mL (<0.04)
[2019-04-29] MEDS ORDERED: NS 0.9% 1000 ML** 1,000 ML IV ONE (23:45)
[2019-04-29] MEDS ORDERED: Benzonatate CAP* 100 MG PO ONE (23:46)
[2019-04-30 02:46] VITALS: BP 140/78
== END 2019-04-30 02:30 | disposition home or self-care (01) ==
LOC: ED 22:20
DX: R07.89 Other chest pain (principal); R05 Cough; B34.9 Viral infection, unspecified; F17.210 Nicotine dependence, cigarettes, uncomplicated; E11.9 Type 2 diabetes mellitus without complications; I10 Essential (primary) hypertension; J44.9 Chronic obstructive pulmonary disease, unspecified; Z88.0 Allergy status to penicillin
CPT/HCPCS: 36415; 71046; 80053; 83605; 83735; 83880; 84484; 85025; 85610; 93005; 96360; 99283; A9270-GY

== ENCOUNTER 2019-05-11 22:40 | Emergency (ER) | payer MEDICAID ==
[2019-05-11 23:34] LABS: ABS Basophils 0.2 10^3/ul (0-0.2); ABS Eosinophils 0.5 10^3/ul (0-0.6); ABS Lymphocytes 2.6 10^3/ul (1.0-4.8); ABS Monocytes 0.8 10^3/ul (0-0.8); ABS Neutrophils 9.1 10^3/ul (1.5-7.7); Eosinophil % 3.6 %; Hematocrit 47 % (42-52); Hemoglobin 16.1 g/dL (14.0-18.0); Lymphocyte % 20.1 %; Mean Corpuscular HGB Conc 34 g/dL (31-36); Mean Corpuscular Hemoglobin 30 pg (27-31); Mean Corpuscular Volume 88 fL (80-94); Mean Platelet Volume 7.6 fL (7.4-10.4); Platelet Count 348 10^3/uL (150-450); Red Blood Count 5.39 10^6 /uL (4.18-5.48); Red Cell Distribution Width 14 % (10-15); White Blood Count 13.1 10^3/uL (3.5-10.8)
[2019-05-11] MEDS ORDERED: Acetaminophen TAB* 325 MG PO ONE (23:37)
--- OUTSIDE RECORDS SUMMARY | 2019-05-11 23:48 | XMS REPORT | Continuity of Care Document ---
:1975 External Reference #:[id number] Author Name Magda Mcdaniels Care Team Providers Name Role Phone Maricarmen Sewell DO Primary Care Physician Unavailable Payers Date Identification Numbers Payment Provider Subscriber Policy Number: [id number] Medicaid Leon Cordero Group Name: 1 1 [address] PayID: [id number] [place] [address] Social History Type Date Description Comments Sex Unknown Tobacco Use Start: Unknown Heavy tobacco smoker (more than 10 cigarettes/day) Smoking Status Reviewed: 05/05/19 Heavy tobacco smoker (more than 10 cigarettes/day) Allergies, Adverse Reactions, Alerts Active Allergies Reaction Severity Comments Date Penicillin 03/12/2019 Medications Active Medications SIG Qnty Indications Ordering Date Provider Onetouch Ultra Blue test twice a day 100units Maricarmen Sewell, 05/05/2019 and as needed DO Strips Onetouch Ultra 2 use once a day 1units Maricarmen Sewell, 03/26/2019 (and as needed if DO w/Device Kit symptomatic) to measure blood sugar for diabetes mellitus Onetouch Ultrasoft use once a day and 100units Judd Zaragoza MD 03/26/2019 Lancets as needed to Misc monitor blood glucose for diabetes mellitus Amlodipine Besylate 1 by mouth every 30tabs I10 Judd Zaragoza MD 03/24/2019 day 5mg Tablets Advair Diskus 2 puffs inhaled 60units J45.909 Judd Zaragoza MD 03/24/2019 daily 100-50mcg/Dose Aerosol Blood Pressure Kit check once a day 1units I10 Judd Zaragoza MD 03/24/2019 and record in a Kit log book Glucophage XR Take 1 tab daily 30tabs Judd Zaragoza MD 03/19/2019 500mg Tablets ER 24HR Phenytoin Sodium take 3 capsule by 270caps Maricarmen Sewell, Extended mouth at three DO 100mg times a day Capsules Hydroxyzine Pamoate take 1 by mouth 90caps Maricarmen Sewell, three times a day DO 50mg Capsules if needed for anxiety maximum daily dose of 3 caplets Lamotrigine take 1 by mouth 60tabs Maricarmen Sewell, 150mg twice a day. DO Tablets Lexapro 1 by mouth every 30tabs Maricarmen Sewell, 20mg day DO Tablets Nicotrol 1 cartridges every Unknown 10mg 2 hours as needed Inhaler Albuterol Sulfate one puff every 6 Unknown HFA hours 108(90Base) mcg/Act Aerosol History Medications Onetouch Verio Testing blood sugar 100units Judd Zaragoza MD 03/26/2019 - once a day or if 05/04/2019 Strips symptomatic. For diabetes mellitus True Metrix Meter for blood glucose 1units E11.9 Judd Zaragoza MD 03/24/2019 - monitoring once a 03/26/2019 w/Device Kit and as needed for symptoms. for diabetes mellitus True Metrix Blood testing blood 100units E11.9 Judd Zaragoza MD 03/24/2019 - Glucosetest Strips glucose once a day 03/26/2019 for diabetes Strips mellitus Metformin HCL ER 1 by mouth every day 30tabs Judd Zaragoza MD 03/12/2019 - (Mod) 03/19/2019 500mg Tablets ER 24HR Prednisone day 1and day 2 two Unknown - 20mg tablets qd,then 03/25/2019 Tablets day3,4,5 one qd,the one half tabletday 6,7,8,9 Lisinopril 1 by mouth every day 30tabs Maricarmen - 20mg Senner, DO 03/25/2019 Tablets Metformin HCL ER 1 by mouth every day 30tabs Maricarmen - (Osm) Senner, DO 03/12/2019 500mg Tablets ER 24HR Vital Signs Date Vital Result Comment 05/05/2019 12:57pm Weight 320.00 lb Heart Rate 88 /min BP Systolic 116 mmHg BP Diastolic 80 mmHg Respiratory Rate 18 /min O2 % BldC Oximetry 95 % 03/31/2019 11:15am Weight 319.00 lb Heart Rate 80 /min BP Systolic 130 mmHg BP Diastolic 909 mmHg Respiratory Rate 18 /min Body Temperature 98.3 F Pain Level 3 Lknee O2 % BldC Oximetry 97 % 03/26/2019 1:09pm Height 74.5 inches 6'2.50" Weight 326.00 lb Heart Rate 82 /min BP Systolic Sitting 124 mmHg BP Diastolic Sitting 80 mmHg Respiratory Rate 22 /min BMI (Body Mass Index) 41.3 kg/m2 03/24/2019 10:41am Weight 324.00 lb Heart Rate 80 /min BP Systolic 130 mmHg BP Diastolic 84 mmHg Respiratory Rate 18 /min Body Temperature 98.0 F Pain Level 10 low back O2 % BldC Oximetry 94 % 03/12/2019 12:00pm Height 74 inches 6'2" Weight 334.00 lb Heart Rate 80 /min BP Systolic 176 mmHg BP Diastolic 100 mmHg Respiratory Rate 18 /min Body Temperature 98.1 F Pain Level 4 low back O2 % BldC Oximetry 97 % BMI (Body Mass Index) 42.9 kg/m2 Results Test Date Facility Test Result H/L Range Note Laboratory test 04/30/2019 [facility] Troponin-I 0.03 ng/mL < 0.04 [address] (TnI) [place] [address] [phone] CBC Auto Diff 04/29/2019 [facility] White Blood 10.4 10^3/uL N 3.5-10.[address] [place] [address] [phone] Red Blood Count 4.94 10^6/uL N 4.18-5.48 Hemoglobin 14.9 g/dL N 14.0-18.0 Hematocrit 44 % N 42-52 Mean Corpuscular Volume 88 fL N 80-94 Mean Corpuscular Hemoglobin 30 pg N 27-31 Mean Corpuscular HGB Conc 34 g/dL N 31-36 Red Cell Distribution Width 13 % N 10-15 Platelet Count 255 10^3/uL N 150-450 Mean Platelet Volume 7.7 fL N 7.4-10.4 Abs Neutrophils 6.9 10^3/uL N 1.5-7.7 Abs Lymphocytes 2.2 10^3/uL N 1.0-4.8 Abs Monocytes 1.0 10^3/uL High 0-0.8 Abs Eosinophils 0.3 10^3/uL N 0-0.6 Abs Basophils 0.0 10^3/uL N 0-0.2 Abs Nucleated RBC 0.0 10^3/uL Granulocyte % 66.1 % Lymphocyte % 20.9 % Monocyte % 9.7 % Eosinophil % 3.1 % Basophil % 0.2 % Nucleated Red Blood Cells % 0.0 Laboratory test 04/29/2019 [facility] Lactic Acid 2.5 mmol/L High 0.5-2.0 [address] [place] [address] [phone] Inr/Protime 04/29/2019 [facility] Inr 1.09 N 0.82-1.[address] [place] [address] [phone] Laboratory test 04/26/2019 [facility] Phenytoin < 2.5 Low 10- [address] (Dilantin) g/[place] [address] [phone] Acetaminophen < 15 g/mL 4 Alcohol < 10 mg/dL N <10 Salicylate < 2.50 mg/dL <30 TSH (Thyroid Stim Horm) 2.07 mcIU/mL N 0.34-5.60 CBC Auto Diff 04/26/2019 [facility] White Blood 8.8 10^3/uL N 3.5-10.[address] [place] [address] [phone] Red Blood Count 5.05 10^6/uL N 4.18-5.48 Hemoglobin 15.3 g/dL N 14.0-18.0 Hematocrit 44 % N 42-52 Mean Corpuscular Volume 88 fL N 80-94 Mean Corpuscular Hemoglobin 30 pg N 27-31 Mean Corpuscular HGB Conc 34 g/dL N 31-36 Red Cell Distribution Width 13 % N 10-15 Platelet Count 274 10^3/uL N 150-450 Mean Platelet Volume 7.7 fL N 7.4-10.4 Abs Neutrophils 5.5 10^3/uL N 1.5-7.7 Abs Lymphocytes 1.9 10^3/uL N 1.0-4.8 Abs Monocytes 0.9 10^3/uL High 0-0.8 Abs Eosinophils 0.4 10^3/uL N 0-0.6 Abs Basophils 0.1 10^3/uL N 0-0.2 Abs Nucleated RBC 0.0 10^3/uL Granulocyte % 62.8 % Lymphocyte % 21.2 % Monocyte % 9.7 % Eosinophil % 5.0 % Basophil % 1.3 % Nucleated Red Blood Cells % 0.2 Comp Metabolic Panel 04/26/2019 [facility] Sodium 140 mmol/L N 135-145 [address] [place] [address] [phone] Potassium 4.1 mmol/L N 3.5-5.0 Chloride 102 mmol/L N 101-111 Co2 Carbon Dioxide 30 mmol/L N 22-32 Anion Gap 8 mmol/L N 2-11 Glucose 114 mg/dL High 70-100 Blood Urea Nitrogen 10 mg/dL N 6-24 Creatinine 0.76 mg/dL N 0.67-1.17 BUN/Creatinine Ratio 13.2 N 8-20 Calcium 9.6 mg/dL N 8.6-10.3 Total Protein 6.5 g/dL N 6.4-8.9 Albumin 4.0 g/dL N 3.2-5.2 Globulin 2.5 g/dL N 2-4 Albumin/Globulin Ratio 1.6 N 1-3 Total Bilirubin 0.30 mg/dL N 0.2-1.0 Alkaline Phosphatase 115 U/L High 34-104 Alt 20 U/L N 7-52 Ast 38 U/L N 13-39 Egfr Non- 112.5 >60 Egfr 136.1 >60 5 Laboratory test 04/13/2019 [facility] Magnesium 1.9 mg/dL N 1.9-2.7 finding [address] [place] [address] [phone] Creatine Kinase(CK) 42 U/L N 10-223 C Reactive Protein 26.22 mg/L High <8.01 Alcohol < 10 mg/dL N <10 Troponin-I (TnI) 0.04 ng/mL High <0.04 6 TSH (Thyroid Stim Horm) 2.26 mcIU/mL N 0.34-5.60 B-Type Natriuretic Peptide BNP 28 pg/mL <=100 Laboratory test 04/13/2019 [facility] Lactic Acid 1.8 mmol/L N 0.5-2.0 [address] [place] [address] [phone] Comp Metabolic 04/13/2019 [facility] Sodium 136 mmol/L N 135- 145 Panel [address] [place] [address] [phone] Potassium 3.8 mmol/L N 3.5-5.0 Chloride 103 mmol/L N 101-111 Co2 Carbon Dioxide 27 mmol/L N 22-32 Anion Gap 6 mmol/L N 2-11 Glucose 166 mg/dL High 70-100 Blood Urea Nitrogen 7 mg/dL N 6-24 Creatinine 0.74 mg/dL N 0.67-1.17 BUN/Creatinine Ratio 9.5 N 8-20 Calcium 9.4 mg/dL N 8.6-10.3 Total Protein 7.2 g/dL N 6.4-8.9 Albumin 4.0 g/dL N 3.2-5.2 Globulin 3.2 g/dL N 2-4 Albumin/Globulin Ratio 1.3 N 1-3 Total Bilirubin 0.20 mg/dL N 0.2-1.0 Alkaline Phosphatase 104 U/L N 34-104 Alt 17 U/L N 7-52 Ast 34 U/L N 13-39 Egfr Non- 116.0 >60 Egfr 140.3 >60 8 CBC Auto Diff 04/13/2019 [facility] White Blood 10.3 10^3/uL N 3.5-10.[address] [place] [address] [phone] Red Blood Count 5.13 10^6/uL N 4.18-5.48 Hemoglobin 15.3 g/dL N 14.0-18.0 Hematocrit 45 % N 42-52 Mean Corpuscular Volume 89 fL N 80-94 Mean Corpuscular Hemoglobin 30 pg N 27-31 Mean Corpuscular HGB Conc 34 g/dL N 31-36 Red Cell Distribution Width 14 % N 10.5-15 Platelet Count 334 10^3/uL N 150-450 Mean Platelet Volume 7.4 fL N 7.4-10.4 Abs Neutrophils 6.9 10^3/uL N 1.5-7.7 Abs Lymphocytes 2.2 10^3/uL N 1.0-4.8 Abs Monocytes 0.7 10^3/uL N 0-0.8 Abs Eosinophils 0.4 10^3/uL N 0-0.6 Abs Basophils 0.1 10^3/uL N 0-0.2 Abs Nucleated RBC 0.0 10^3/uL Granulocyte % 66.4 % Lymphocyte % 21.7 % Monocyte % 6.6 % Eosinophil % 4.1 % Basophil % 1.2 % Nucleated Red Blood Cells % 0.1 Laboratory test 04/07/2019 [facility] Phenytoin 5.2 g/mL Low 10-[address] (Dilantin) [place] [address] [phone] Comp Metabolic 04/07/2019 [facility] Sodium 140 mmol/L N 135- [address] [place] [address] [phone] Potassium 4.3 mmol/L N 3.5-5.0 Chloride 103 mmol/L N 101-111 Co2 Carbon Dioxide 29 mmol/L N 22-32 Anion Gap 8 mmol/L N 2-11 Glucose 100 mg/dL N 70-100 Blood Urea Nitrogen 9 mg/dL N 6-24 Creatinine 0.80 mg/dL N 0.67-1.17 BUN/Creatinine Ratio 11.3 N 8-20 Calcium 10.2 mg/dL N 8.6-10.3 Total Protein 7.6 g/dL N 6.4-8.9 Albumin 4.6 g/dL N 3.2-5.2 Globulin 3.0 g/dL N 2-4 Albumin/Globulin Ratio 1.5 N 1-3 Total Bilirubin 0.30 mg/dL N 0.2-1.0 Alkaline Phosphatase 120 U/L High 34-104 Alt 23 U/L N 7-52 Ast 40 U/L High 13-39 Egfr Non- 106.0 >60 Egfr 128.3 >60 9 CBC Auto 04/07/2019 [facility] White Blood 13.4 10^3/uL High 3.5-10.[address] [place] [address] [phone] Red Blood Count 5.48 10^6/uL N 4.18-5.48 Hemoglobin 16.5 g/dL N 14.0-18.0 Hematocrit 49 % N 42-52 Mean Corpuscular Volume 89 fL N 80-94 Mean Corpuscular Hemoglobin 30 pg N 27-31 Mean Corpuscular HGB Conc 34 g/dL N 31-36 Red Cell Distribution Width 14 % N 10.5-15 Platelet Count 374 10^3/uL N 150-450 Mean Platelet Volume 7.8 fL N 7.4-10.4 Abs Neutrophils 9.0 10^3/uL High 1.5-7.7 Abs Lymphocytes 2.9 10^3/uL N 1.0-4.8 Abs Monocytes 1.0 10^3/uL High 0-0.8 Abs Eosinophils 0.4 10^3/uL N 0-0.6 Abs Basophils 0.2 10^3/uL N 0-0.2 Abs Nucleated RBC 0.0 10^3/uL Granulocyte % 67.4 % Lymphocyte % 21.3 % Monocyte % 7.3 % Eosinophil % 2.7 % Basophil % 1.3 % Nucleated Red Blood Cells % 0.1 Laboratory test 03/21/2019 [facility] B-Type 15 pg/mL <=[address] [address] Peptide BNP [phone] Comp Metabolic 03/21/2019 [facility] Sodium 138 mmol/L N 135- [address] [place] [address] [phone] Potassium 4.1 mmol/L N 3.5-5.0 Chloride 102 mmol/L N 101-111 Co2 Carbon Dioxide 28 mmol/L N 22-32 Anion Gap 8 mmol/L N 2-11 Glucose 107 mg/dL High 70-100 Blood Urea Nitrogen 14 mg/dL N 6-24 Creatinine 0.77 mg/dL N 0.67-1.17 BUN/Creatinine Ratio 18.2 N 8-20 Calcium 9.3 mg/dL N 8.6-10.3 Total Protein 7.3 g/dL N 6.4-8.9 Albumin 4.0 g/dL N 3.2-5.2 Globulin 3.3 g/dL N 2-4 Albumin/Globulin Ratio 1.2 N 1-3 Total Bilirubin 0.40 mg/dL N 0.2-1.0 Alkaline Phosphatase 102 U/L N 34-104 Alt 31 U/L N 7-52 Ast 45 U/L High 13-39 Egfr Non- 110.8 >60 Egfr 134.1 >60 10 Laboratory test 03/21/2019 [facility] Creatine 61 U/L N 10- [address] Kinase(CK) [place] [address] [phone] TSH (Thyroid Stim Horm) 2.76 mcIU/mL N 0.34-5.60 Influenza A & B 03/21/2019 [facility] Influenza A NEGATIVE Negative [address] [place] [address] [phone] Influenza B Molecular NEGATIVE Negative Urine Drug 03/21/2019 [facility] Urine None Detected None Detect SCR ED & [address] [facility] [place] [address] Screen [phone] Urine Barbiturates Screen None Detected None Detect Urine Benzodiazepine Screen None Detected None Detect Urine Cannabinoids Screen None Detected None Detect Urine Cocaine Screen None Detected None Detect Urine Opiates Screen None Detected None Detect Urine Phencyclidine Screen None Detected None Detect 12 Urinalysis Profile 03/21/2019 [facility] Urine Color Yara [address] [place] [address] [phone] Urine Appearance Cloudy Urine Specific [place] 1.028 N 1.010-1.030 Urine pH 5.0 N 5-9 Urine Urobilinogen Negative Negative Urine Ketones Negative Negative Urine Protein Negative Negative Urine Leukocytes Negative Negative Urine Blood Negative Negative Urine Nitrite Negative Negative Urine Bilirubin Negative Negative Urine Glucose Negative Negative Laboratory test 03/21/2019 [facility] Lactic Acid 1.2 mmol/L N 0.5-2.0 [address] [place] [address] [phone] Laboratory test 03/21/2019 [facility] Rapid Strep Negative Negative [address] [place] [address] [phone] CBC Auto Diff 03/21/2019 [facility] White Blood 10.8 10^3/uL N 3.5-10.[address] [place] [address] [phone] Red Blood Count 5.03 10^6/uL N 4.18-5.48 Hemoglobin 15.2 g/dL N 14.0-18.0 Hematocrit 45 % N 42-52 Mean Corpuscular Volume 89 fL N 80-94 Mean Corpuscular Hemoglobin 30 pg N 27-31 Mean Corpuscular HGB Conc 34 g/dL N 31-36 Red Cell Distribution Width 13 % N 10.5-15 Platelet Count 318 10^3/uL N 150-450 Mean Platelet Volume 7.0 fL Low 7.4-10.4 Abs Neutrophils 7.2 10^3/uL N 1.5-7.7 Abs Lymphocytes 2.4 10^3/uL N 1.0-4.8 Abs Monocytes 0.8 10^3/uL N 0-0.8 Abs Eosinophils 0.4 10^3/uL N 0-0.6 Abs Basophils 0.0 10^3/uL N 0-0.2 Abs Nucleated RBC 0.0 10^3/uL Granulocyte % 67.5 % Lymphocyte % 21.8 % Monocyte % 7.0 % Eosinophil % 3.5 % Basophil % 0.2 % Nucleated Red Blood Cells % 0.1 Hepatitis C Antibody 03/12/2019 [facility] HCV Index 0.[address] [place] [address] [phone] Hepatitis C Antibody Nonreactive Nonreactive Urine Microalbumin 03/12/2019 [facility] Ur Microalbumin 24.9 mg /L Random [address] (mg/L) [place] [address] [phone] Urine Creatinine 230.62 mg/dL Urine Microalbumin/Creatinine 10.7 N <31 Laboratory test 03/12/2019 [facility] Creatinine Random 230.62 mg/dL finding [address] [place] [address] [phone] Lipid Profile 03/12/2019 [facility] Triglycerides 283 mg/dL 15 (Trig/Chol/HDL) [address] [place] [address] [phone] Cholesterol 237 mg/dL 16 HDL Cholesterol 38.7 mg/dL 17 LDL Cholesterol 142 mg/dL 18 1 Troponin-I testing on Plasma Separator Tubes (PST) has a known false positive rate of 0.20-0.40%. All positive troponins reflex immediately to secondary confirmatory testing. Using the [employer] DxI 800 Access Immunoassay systems, the 99th percentile upper reference limit was demonstrated to be < 0.03 ng/mL. 2 Critical Result LACT:2.5 Called to [id number] at: 23:15:30 by:[id number] Read back by:[id number] [facility] Severe Sepsis and Septic Shock Management Bundle Measure requires all lactic acids initially measuring >2.0 mmol/L be repeated. 3 Standard intensity warfarin therapeutic range: 2.0-3.0 High intensity warfarin therapeutic range: 2.5-3.5 4 Therapeutic concentration: <50 ug/mL Toxic concentration: >120 ug/mL 5 Because ethnic data is not always readily available, this report includes an eGFR for both -Americans and non- Americans. The National Kidney Disease Education Program (NKDEP) does not endorse the use of the MDRD equation for patients that are not between the ages of 18 and 70, are , have extremes of body size, muscle mass, or nutritional status, or are non- or non-. According to the National Kidney Foundation, irrespective of diagnosis, the stage of the disease is based on the level of kidney function: Stage Description GFR(mL/min/1.73 m(2)) 1 Kidney damage with normal or decreased GFR 90 2 Kidney damage with mild decrease in GFR 60-89 3 Moderate decrease in GFR 30-59 4 Severe decrease in GFR 15-29 5 Kidney failure <15 (or dialysis) 6 Result TnIDx:0.04 Called to [id number] at: 14:56:56 by:[id number] Read back by: [id number] Troponin-I testing on Plasma Separator Tubes (PST) has a known false positive rate of 0.20-0.40%. All positive troponins reflex immediately to secondary confirmatory testing. Using the [employer] DxI 800 Access Immunoassay systems, the 99th percentile upper reference limit was demonstrated to be < 0.03 ng/mL. 7 [facility] Severe Sepsis and Septic Shock Management Bundle Measure requires all lactic acids initially measuring >2.0 mmol/L be repeated. 8 Because ethnic data is not always readily available, this report includes an eGFR for both -Americans and non- Americans. The National Kidney Disease Education Program (NKDEP) does not endorse the use of the MDRD equation for patients that are not between the ages of 18 and 70, are , have extremes of body size, muscle mass, or nutritional status, or are non- or non-. According to the National Kidney Foundation, irrespective of diagnosis, the stage of the disease is based on the level of kidney function: Stage Description GFR(mL/min/1.73 m(2)) 1 Kidney damage with normal or decreased GFR 90 2 Kidney damage with mild decrease in GFR 60-89 3 Moderate decrease in GFR 30-59 4 Severe decrease in GFR 15-29 5 Kidney failure <15 (or dialysis) 9 Because ethnic data is not always readily available, this report includes an eGFR for both -Americans and non- Americans. The National Kidney Disease Education Program (NKDEP) does not endorse the use of the MDRD equation for patients that are not between the ages of 18 and 70, are , have extremes of body size, muscle mass, or nutritional status, or are non- or non-. According to the National Kidney Foundation, irrespective of diagnosis, the stage of the disease is based on the level of kidney function: Stage Description GFR(mL/min/1.73 m(2)) 1 Kidney damage with normal or decreased GFR 90 2 Kidney damage with mild decrease in GFR 60-89 3 Moderate decrease in GFR 30-59 4 Severe decrease in GFR 15-29 5 Kidney failure <15 (or dialysis) 10 Because ethnic data is not always readily available, this report includes an eGFR for both -Americans and non- Americans. The National Kidney Disease Education Program (NKDEP) does not endorse the use of the MDRD equation for patients that are not between the ages of 18 and 70, are , have extremes of body size, muscle mass, or nutritional status, or are non- or non-. According to the National Kidney Foundation, irrespective of diagnosis, the stage of the disease is based on the level of kidney function: Stage Description GFR(mL/min/1.73 m(2)) 1 Kidney damage with normal or decreased GFR 90 2 Kidney damage with mild decrease in GFR 60-89 3 Moderate decrease in GFR 30-59 4 Severe decrease in GFR 15-29 5 Kidney failure <15 (or dialysis) 11 [employer] Installer: [id number] The urine specimen was tested at the listed cutoffs: Drug class test level (ng/mL) Amphetamines 500 Barbiturates 200 Benzodiazepine metabolites 200 Cocaine metabolites 150 Cannabinoids 50 Opiates 300 Pcp 25 Specimen was received without chain of custody. Results should be used for medical purposes only. 13 [facility] Severe Sepsis and Septic Shock Management Bundle Measure requires all lactic acids initially measuring >2.0 mmol/L be repeated. 14 [employer]er: [id number] Desirable: <150 Borderline High: 150-199 High: 200-499 Very High: >500 16 Desirable: <200 Borderline High: 200-239 High: >239 17 Low: <40 Desirable: 40-60 High: >60 18 Desirable: <100 Near Optimal: 100-129 Borderline High: 130-159 High: 160-189 Very High: >189 Procedures Date Code Description Status 03/03/2019 73926 EEG Recording Awake & Drowsy Completed 03/03/2019 07986 ECHO Transthorasic Realtime 2D W Doppler & Color Flow Hosp Completed 02/28/2019 54143 EKG, Interpretation Only Completed Encounters Type Date Location Provider Dx Diagnosis Office Visit 03/31/2019 DO Not Use Care Maricarmen Sewell, I10 Essential ( primary) 11:20a [facility] E11.9 Type 2 diabetes mellitus without complications 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, unsp, not intractable, without status epilepticus J45.909 Unspecified asthma, uncomplicated Z72.0 Tobacco use F31.9 Bipolar disorder, unspecified Z59.0 Homelessness Office Visit 03/26/2019 1:00p Octavio Rodriguez, 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, unsp, 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, [facility] without status epilepticus Z91.14 Patient's other noncompliance with medication regimen Office Visit 03/24/2019 11:20a DO Not Use Care Foreign Johnson0 Essential ( primary[facility] Type 2 diabetes mellitus without complications 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, unsp, not intractable, without status epilepticus J45.909 Unspecified asthma, uncomplicated Z72.0 Tobacco use F31.9 Bipolar disorder, unspecified Office Visit 03/12/2019 11:20a DO Not Use Care Maricarmen Carrasquillo0 Essential ( primary) [facility]oj [facility] Type 2 diabetes mellitus without complications 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, unsp, not intractable, without status epilepticus J45.909 Unspecified asthma, uncomplicated Z72.0 Tobacco use F31.9 Bipolar disorder, unspecified [facility]901 Unspecified 8:37a nora Jay MD asthma with Hospitalists (acute) exacerbation R07.89 Other chest pain E11.9 Type 2 diabetes mellitus without complications Z59.0 Homelessness Office Visit 03/09/2019 [facility] Nathanielcheng Ruelas J45.901 Unspecified 8:36a nora Jay MD asthma with Hospitalists (acute) exacerbation F25.9 Schizoaffective disorder, unspecified F41.9 Anxiety disorder, unspecified I10 Essential (primary) hypertension Office Visit 03/08/2019 [facility] J45.901 Unspecified asthma 8:36a nora Jay MD with (acute) Hospitalists exacerbation R56.9 Unspecified convulsions I10 Essential (primary) hypertension F25.9 Schizoaffective disorder, unspecified Office Visit 03/07/2019 [facility] J45.901 Unspecified asthma 8:35a nora Jay MD with (acute) Hospitalists exacerbation R56.9 Unspecified convulsions I10 Essential (primary) hypertension F25.9 Schizoaffective disorder, unspecified Office Visit 03/06/2019 [facility] J45.901 Unspecified asthma 8:35a nora Jay MD with (acute) Hospitalists exacerbation R07.89 Other chest pain I10 Essential (primary) hypertension F25.9 Schizoaffective disorder, unspecified Office Visit 03/05/2019 [facility] J45.901 Unspecified asthma 8:45a nora Jay MD with (acute) Hospitalists exacerbation F41.9 Anxiety disorder, unspecified R74.8 Abnormal levels of other serum enzymes Office 03/04/2019 [facility] Tiwari 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, unsp, Visit 7:00a Chelsey Babb M.D. not intractable, without status epilepticus Z91.14 Patient's other noncompliance with medication regimen Office Visit 03/04/2019 [facility] Nathaniel Ruelas R07.9 Chest pain, 8:45a nora Jay MD unspecified Hospitalists R05 Cough 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, unsp, not intractable, without status epilepticus F41.9 Anxiety disorder, unspecified I10 Essential (primary) hypertension Z72.0 Tobacco use Office Visit 03/03/2019 [facility] Suraj R07.9 Chest pain, 8:44a nora Jay MD unspecified Hospitalists R05 Cough 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, unsp, not intractable, without status epilepticus F41.9 Anxiety disorder, unspecified I10 Essential (primary) hypertension Z72.0 Tobacco use Office Visit 03/02/2019 [facility] Suraj R07.9 Chest pain, 8:44a nora Jay MD unspecified Hospitalists R05 Cough 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, unsp, not intractable, without status epilepticus I10 Essential (primary) hypertension F41.9 Anxiety disorder, unspecified Z72.0 Tobacco use Office Visit 03/01/2019 [facility] Suraj R07.9 Chest pain, 8:44a nora Jay MD unspecified Hospitalists R74.8 Abnormal levels of other serum enzymes R05 Cough 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, unsp, not intractable, without status epilepticus F41.9 Anxiety disorder, unspecified Z72.0 Tobacco use Plan of Treatment Future Appointment(s):06/25/2019 1:30 pm - Alejo Rodriguez NP at [facility]05/05/2019 - Maricarmen Sewell, DOI10 Essential (primary ) hypertensionFollow up:one qzsnkO08.9 Type 2 diabetes mellitus without qkwzpsigjeokeM08.909 Unspecified asthma, uncomplicatedNew Orders:Sleep Study, Ordered: 05/05/19Referral:Shakira Varma MD, Pulmonary QpvewdydX76.0 Tobacco useF31.9 Bipolar disorder, fzfeczrodclJ42.0 BwqlglhzzfveR60.5 Low back painNew Therapy:Physical Therapy
[2019-05-11 23:51] LABS: ALT 18 U/L (7-52); Albumin/Globulin Ratio 1.1 (1-3); Alkaline Phosphatase 97 U/L (34-104); BUN/Creatinine Ratio 11.7 (8-20); Blood Urea Nitrogen 9 mg/dL (6-24); CO2 Carbon Dioxide 28 mmol/L (22-32); Calcium 9.6 mg/dL (8.6-10.3); Chloride 105 mmol/L (101-111); EGFR African American 134.1 (>60); EGFR Non-African American 110.8 (>60); Globulin 3.6 g/dL (2-4); Glucose 159 mg/dL (70-100); Sodium 139 mmol/L (135-145); Total Protein 7.6 g/dL (6.4-8.9)
[2019-05-11 23:54] LABS: AST 39 U/L (13-39); Anion Gap 6 mmol/L (2-11); Potassium 3.9 mmol/L (3.5-5.0)
[2019-05-12 00:05] LABS: Acetaminophen < 15 mcg/mL; Alcohol < 10 mg/dL (<10); Salicylate < 2.50 mg/dL (<30)
[2019-05-12 00:21] LABS: TSH (Thyroid Stimulating Horm) 2.75 mcIU/mL (0.34-5.60)
[2019-05-12 00:32] LABS: Urine Benzodiazepine Screen None Detected (None Detect); Urine Opiates Screen None Detected (None Detect)
[2019-05-12 00:51] LABS: Urine Appearance Cloudy; Urine Bilirubin Negative (Negative); Urine Blood Negative (Negative); Urine Color Amber; Urine Glucose Negative (Negative); Urine Ketones Negative (Negative); Urine Nitrite Negative (Negative); Urine Protein Negative (Negative); Urine Specific Gravity 1.029 (1.010-1.030); Urine Urobilinogen Negative (Negative)
[2019-05-12 02:32] VITALS: BP 122/88
--- NOTE | 2019-05-12 04:14 | ED ---
Psychiatric Complaint - HPI Summary HPI Summary: Patient is a 43 y/o M presenting to ED via EMS under 945 with complaints of SI. Patient had made comments of SI to his counselor today. He states that he lives in a prison and states that if he has to go back there he is, "Not going to make it to the morning". When asked if he has a plan of suicide, he reports multiple, including hanging, cutting, "whatever". On triage, recent stress is noted to aggravate Sx. Home medications and allergies are reviewed. - History Of Current Complaint Chief Complaint: EDMentalHealth Time Seen by Provider: 05/11/19 23:02 Hx Obtained From: Patient Onset/Duration: Still Present Timing: Constant Character: Depressed Aggravating Factor(s): Recent Stress Alleviating Factor(s): Nothing Has Suicidal: Reports: Thoughts, With A Plan - Allergies/Home Medications Allergies/Adverse Reactions: Allergies Allergy/AdvReac Type Severity Reaction Status Date / Time Penicillins Allergy Vomiting Verified 05/11/19 23:03 PMH/Surg Hx/FS Hx/Imm Hx Endocrine/Hematology History: Reports: Hx Diabetes Cardiovascular History: Reports: Hx Hypertension Respiratory History: Reports: Hx Asthma, Hx Chronic Obstructive Pulmonary Disease (COPD) History: Denies: Hx Dialysis Sensory History: Denies: Hx Contacts or Glasses, Hx Deafness, Hx Hearing Aid Opthamlomology History: Denies: Hx Contacts or Glasses Neurological History: Reports: Hx Seizures Psychiatric History: Reports: Hx Schizophrenia, Hx Bipolar Disorder Denies: Hx Eating Disorder, Hx of Violent Episodes Against Others - Cancer History Cancer Type, Location and Year: seizures arthritis knees and back - Immunization History Immunizations Up to Date: Yes Infectious Disease History: No Infectious Disease History: Denies: Traveled Outside the [place] in Last 30 Days - Family History Known Family History: Positive: Hypertension - Father Negative: Cardiac Disease, Diabetes - Social History Alcohol Use: None Hx Substance Use: No Substance Use Type: Reports: None Hx Tobacco Use: Yes Smoking Status (MU): Heavy Every Day Tobacco Smoker Type: Cigarettes Amount Used/How Often: 1 pack /day Have You Smoked in the Last Year: Yes Review of Systems Negative: Fever - ON VITALS, TEMP IS 98 F Psychological: Other - POSITIVE - SI Positive: Depressed All Other Systems Reviewed And Are Negative: Yes Physical Exam - Summary Physical Exam Summary: VITAL SIGNS: Reviewed. GENERAL: Patient is a well-developed and nourished male who is lying comfortable in the stretcher. Patient is not in any acute respiratory distress. HEAD AND FACE: No signs of trauma. No ecchymosis, hematomas or skull depressions. No sinus tenderness. EYES: PERRLA, EOMI x 2, No injected conjunctiva, no nystagmus. EARS: Hearing grossly intact. Ear canals and tympanic membranes are within normal limits. MOUTH: Oropharynx within normal limits. NECK: Supple, trachea is midline, no adenopathy, no JVD, no carotid bruit, no c- spine tenderness, neck with full ROM CHEST: Symmetric, no tenderness at palpation LUNGS: Clear to auscultation bilaterally. No wheezing or crackles. CVS: Regular rate and rhythm, S1 and S2 present, no murmurs or gallops appreciated. ABDOMEN: Soft, non-tender. No signs of distention. No rebound no guarding, and no masses palpated. Bowel sounds are normal. EXTREMITIES: FROM in all major joints, no edema, no cyanosis or clubbing. NEURO: Alert and oriented x 3. No acute neurological deficits. Speech is normal and follows commands. SKIN: Dry and warm Triage Information Reviewed: Yes Vital Signs On Initial Exam: Initial Vitals Temp Pulse Resp BP Pulse Ox 98 F 88 16 126/55 96 05/11/19 22:47 05/11/19 22:47 05/11/19 22:47 05/11/19 22:47 05/11/19 22:47 Vital Signs Reviewed: Yes Diagnostics - Vital Signs Vital Signs Temp Pulse Resp BP Pulse Ox 05/12/19 02:08 97.2 F 95 16 122/88 94 05/11/19 22:47 98 F 88 16 126/55 96 - Laboratory Lab Results: Lab Results 05/11/19 05/11/19 05/12/19 Range/Units 23:28 23:28 00:00 WBC 13.1 H (3.5-10.8) 10^3/uL RBC 5.39 (4.18-5.48) 10^6 /uL Hgb 16.1 (14.0-18.0) g/dL Hct 47 (42-52) % MCV 88 (80-94) fL MCH 30 (27-31) pg MCHC 34 (31-36) g/dL RDW 14 (10-15) % Plt Count 348 (150-450) 10^3/uL MPV 7.6 (7.4-10.4) fL Neut % (Auto) 69.1 % Lymph % (Auto) 20.1 % Wilkin % (Auto) 6.0 % Eos % (Auto) 3.6 % Baso % (Auto) 1.2 % Absolute Neuts (auto) 9.1 H (1.5-7.7) 10^3/ul Absolute Lymphs (auto) 2.6 (1.0-4.8) 10^3/ul Absolute Monos (auto) 0.8 (0-0.8) 10^3/ul Absolute Eos (auto) 0.5 (0-0.6) 10^3/ul Absolute Basos (auto) 0.2 (0-0.2) 10^3/ul Absolute Nucleated RBC 0.0 10^3/ul Nucleated RBC % 0.0 Sodium 139 (135-145) mmol/L Potassium 3.9 (3.5-5.0) mmol/L Chloride 105 (101-111) mmol/L Carbon Dioxide 28 (22-32) mmol/L Anion Gap 6 (2-11) mmol/L BUN 9 (6-24) mg/dL Creatinine 0.77 (0.67-1.17) mg/dL Est GFR ( Amer) 134.1 (>60) Est GFR (Non-Af Amer) 110.8 (>60) BUN/Creatinine Ratio 11.7 (8-20) Glucose 159 H (70-100) mg/dL Calcium 9.6 (8.6-10.3) mg/dL Total Bilirubin 0.40 (0.2-1.0) mg/dL AST 39 (13-39) U/L ALT 18 (7-52) U/L Alkaline Phosphatase 97 (34-104) U/L Total Protein 7.6 (6.4-8.9) g/dL Albumin 4.0 (3.2-5.2) g/dL Globulin 3.6 (2-4) g/dL Albumin/Globulin Ratio 1.1 (1-3) TSH 2.75 (0.34-5.60) mcIU/mL Urine Color Yara Urine Appearance Cloudy Urine pH 5.0 (5-9) Ur Specific [place] 1.029 (1.010-1.030) Urine Protein Negative (Negative) Urine Ketones Negative (Negative) Urine Blood Negative (Negative) Urine Nitrate Negative (Negative) Urine Bilirubin Negative (Negative) Urine Urobilinogen Negative (Negative) Ur Leukocyte Esterase Negative (Negative) Urine Glucose Negative (Negative) Urine Ascorbic Acid * A (Negative) Salicylates < 2.50 (<30) mg/dL Urine Opiates Screen (None Detect) Acetaminophen < 15 mcg/mL Ur Barbiturates Screen (None Detect) Ur Phencyclidine Scrn (None Detect) Ur Amphetamines Screen (None Detect) U Benzodiazepines Scrn (None Detect) Urine Cocaine Screen (None Detect) U Cannabinoids Screen (None Detect) Serum Alcohol < 10 (<10) mg/dL 05/12/19 Range/Units 00:00 WBC (3.5-10.8) 10^3/uL RBC (4.18-5.48) 10^6 /uL Hgb (14.0-18.0) g/dL Hct (42-52) % MCV (80-94) fL MCH (27-31) pg MCHC (31-36) g/dL RDW (10-15) % Plt Count (150-450) 10^3/uL MPV (7.4-10.4) fL Neut % (Auto) % Lymph % (Auto) % Wilkin % (Auto) % Eos % (Auto) % Baso % (Auto) % Absolute Neuts (auto) (1.5-7.7) 10^3/ul Absolute Lymphs (auto) (1.0-4.8) 10^3/ul Absolute Monos (auto) (0-0.8) 10^3/ul Absolute Eos (auto) (0-0.6) 10^3/ul Absolute Basos (auto) (0-0.2) 10^3/ul Absolute Nucleated RBC 10^3/ul Nucleated RBC % Sodium (135-145) mmol/L Potassium (3.5-5.0) mmol/L Chloride (101-111) mmol/L Carbon Dioxide (22-32) mmol/L Anion Gap (2-11) mmol/L BUN (6-24) mg/dL Creatinine (0.67-1.17) mg/dL Est GFR ( Amer) (>60) Est GFR (Non-Af Amer) (>60) BUN/Creatinine Ratio (8-20) Glucose (70-100) mg/dL Calcium (8.6-10.3) mg/dL Total Bilirubin (0.2-1.0) mg/dL AST (13-39) U/L ALT (7-52) U/L Alkaline Phosphatase (34-104) U/L Total Protein (6.4-8.9) g/dL Albumin (3.2-5.2) g/dL Globulin (2-4) g/dL Albumin/Globulin Ratio (1-3) TSH (0.34-5.60) mcIU/mL Urine Color Urine Appearance Urine pH (5-9) Ur Specific [place] (1.010-1.030) Urine Protein (Negative) Urine Ketones (Negative) Urine Blood (Negative) Urine Nitrate (Negative) Urine Bilirubin (Negative) Urine Urobilinogen (Negative) Ur Leukocyte Esterase (Negative) Urine Glucose (Negative) Urine Ascorbic Acid (Negative) Salicylates (<30) mg/dL Urine Opiates Screen None detected (None Detect) Acetaminophen mcg/mL Ur Barbiturates Screen None detected (None Detect) Ur Phencyclidine Scrn None detected (None Detect) Ur Amphetamines Screen None detected (None Detect) U Benzodiazepines Scrn None detected (None Detect) Urine Cocaine Screen None detected (None Detect) U Cannabinoids Screen None detected (None Detect) Serum Alcohol (<10) mg/dL Result Diagrams: 05/11/19 23:28 05/11/19 23:28 Lab Statement: Any lab studies that have been ordered have been reviewed, and results considered in the medical decision making process. Re-Evaluation - Re-Evaluation First Eval Re-Evaluation Time: 23:37 Comment: Patient had complaints of back pain, was given Tylenol 650 mg PO. Second Eval Re-Evaluation Time: 00:17 Comment: Patient was medically cleared, receiving MHE at present. Course/Dx - Course Course Of Treatment: Patient is a 43 y/o M presenting to ED via EMS under 945 with complaints of SI. Patient had made comments of SI to his counselor today. He states that he lives in a prison and states that if he has to go back there he is, "Not going to make it to the morning". When asked if he has a plan of suicide, he reports multiple, including hanging, cutting, "whatever". Physical exam is unremarkable. Labs showed WBC 13.1, absolute neuts 9.1, glucose 159. UA showed ascorbic acid. Tox screen negative. Patient had complaints of back pain later in ED stay, was given Tylenol 650 mg PO. Patient was medically cleared. [address] worker Radu Rodriguez reports that patient's case was reviewed by Dr. Kessler, Dr. Kessler states that the patient can be discharged to home. - Differential Dx/Clinical Impression Provider Diagnosis: Schizoaffective disorder - Physician Notifications Discussed Care Of Patient With: Nazanin Kessler Time Discussed With Above Provider: 01:34 Instructed by Provider To: Other - 013 - worker Radu Rodriguez reports that patient's case was reviewed by Dr. Kessler, Dr. Kessler states that the patient can be discharged to home. Discharge - Sign-Out/Discharge Documenting (check all that apply): Patient Departure - discharge Patient Received Moderate/Deep Sedation with Procedure: No - Discharge Plan Condition: Stable Disposition: HOME Patient Education Materials: Suicide Prevention (ED) Referrals: Maricarmen Sewell DO [Primary Care Provider] - Additional Instructions: Per completion of a mental health evaluation, you are cleared for release and do not require inpatient psychiatric hospitalization at this time. Please go to nearest emergency room or call 911 if safety concerns arise or condition worsens. You need to follow up with outpatient counseling services: [facility] [phone] [place], [place] [id number] Important Phone Numbers: [facility] ph:[phone] Suicide Prevention and Crisis Services ph:[phone] National Suicide Prevention Lifeline ph:864-231-ERBR (9230) [facility] ph:[phone] [facility] ph:[phone] Alcohol and Drug [place] Supervisor (ADC) ph:[phone] Alcoholics Anonymous ph:[phone] [facility] ph:[phone] [facility] ph:[phone] - Attestation Statements Document Initiated by Scribe: Yes Documenting Scribe: GISELLE GUERRERO Provider For Whom Scribe is Documenting (Include Credential): DONTA BEJARANO MD Scribe Attestation: I, GISELLE GUERRERO, scribed for DONTA BEJARANO MD on 05/12/19 at 0416. Status of Scribe Document: Ready
== END 2019-05-12 02:08 | disposition home or self-care (01) ==
LOC: ED 22:40
DX: F25.9 Schizoaffective disorder, unspecified (principal); E11.9 Type 2 diabetes mellitus without complications; I10 Essential (primary) hypertension; J44.9 Chronic obstructive pulmonary disease, unspecified; F17.210 Nicotine dependence, cigarettes, uncomplicated; Z79.899 Other long term (current) drug therapy
CPT/HCPCS: 36415; 80053; 80307; 80320; 80329; 81003; 84443; 85025; 99284; A9270-GY; G0480